=== PATIENT | male | born 1970 | race Caucasian/White ===

== ENCOUNTER 2020-05-20 14:02 | Inpatient (IN) | payer MEDICAID, SELFPAY ==
--- NOTE | ~2020-05-20 | CT_ITS ---
EXAMINATION: CT ANGIOGRAM OF THE CHEST WITH AND WITHOUT CONTRAST (CT PULMONARY ANGIOGRAM FOR PE) CLINICAL INFORMATION: 50-year-old male patient with shortness of breath. Post Covid. COMPARISON: No recent chest x-ray available. TECHNIQUE: Prior to contrast administration, noncontrast localization images were obtained. Subsequently, multidetector volumetric imaging was performed from the thoracic inlet to below the diaphragms following the administration of 66 mL Omnipaque 350 intravenous contrast. No contrast reaction reported Sagittal, coronal, and MIP oblique sagittal reformatted images were obtained on the CT workstation, uploaded to PACS, and reviewed. This CT examination was performed using dose optimization techniques as appropriate, variously including the following: *Automated exposure control *Adjustment of mA and/or kV according to patient size (this includes techniques or standardized protocols for targeted exams where dose is matched to indication/reason for exam; i.e. extremities or head) *Use of iterative reconstruction technique Total exam dose-length product 316 mGy-cm FINDINGS: [employer]ISHING [employer]PER[employer]OR: Multilobar air space opacities in both lungs. QUALITY OF STUDY/CONTRAST BOLUS: Satisfactory. PULMONARY ARTERIES: No central or segmental pulmonary emboli. Minimal subsegmental emboli are present in both lower lobes, very low clot burden. THORACIC AORTA: No aneurysm or dissection. LUNG: Extensive and diffuse airspace opacifications in all lobes both lungs due to the evolution of Covid pneumonia. PLEURA: No pleural effusion or pneumothorax. MEDIASTINUM: Normal heart size. No pericardial effusion. Reactive mediastinal and bilateral hilar adenopathy. No evidence of septal bowing or right heart strain. CHEST WALL/AXILLA: No axillary or internal mammary lymphadenopathy. OSSEOUS STRUCTURES: No acute or suspicious osseous abnormality. UPPER ABDOMEN: Unremarkable. No reflux of contrast into the hepatic veins to suggest elevated right heart pressures. CT/CT angio chest PE protocol IMPRESSION: 1. Multilobar diffuse and extensive airspace disease in both lungs. 2. Subsegmental emboli in the lower lobes, very low clot burden. This critical result was discussed with Dr. Caputo at 6:50 PM on May 20 and it was ascertained that the content and urgency of the report was understood at the time of direct communication. VTE: Positive. Low clot burden.
[2020-05-20 14:07] VITALS: BP 136/61; PULSE 87; RESP 18; TEMP 37.4; O2SAT 88; BMI 25.1
--- NOTE | 2020-05-20 16:17 | ED.SOB ---
HPI - SOB/Dyspnea General Chief Complaint: Dyspnea Stated Complaint: SOB Time Seen by Provider: 05/20/20 16:17 Source: patient Mode of arrival: ambulatory Limitations: no limitations History of Present Illness HPI Narrative: Patient with COVID symptoms for last 12 days tested positive for COVID 10 days ago repeat test was done 3 days ago which was negative is complaining of increased shortness of breath for last 3-4 days with dry cough no fever no chest pain feels weak, has poor appetite no fever no chills no chest pain. Patient denies any prior lung issues on arrival patient was saturating 88% at room air improved to 91% on 4 L MD elicited complaint: shortness of breath Related Data Allergies Allergy/AdvReac Type Severity Reaction Status Date / Time ENVIRONMENTAL Allergy Unknown RASH, Uncoded 11/19/19 16:51 HIVES, ITCHY Review of Systems Review of Systems: Constitutional : N++Weight loss, No Fever, No Chills ENT/Mouth : No sore throat, No Rhinorrhea Eyes: No Eye Pain, No Swelling Cardiovascular : No Chest Pain, no palpitations Respiratory : ++Cough, No Sputum, ++ shortness of breath Gastrointestinal : no Nausea, No Vomiting, No Diarrhea, No abdominal Pain, no black stools Genitourinary : No Dysuria, No Urinary Frequency Musculoskeletal : No joint pain, No Myalgias, No Joint Swelling Skin : No Skin Lesions, No rash Neuro : ++Weakness, No Numbness, No Dizziness, No Headache Psych : No Anxiety/Panic, No Depression Heme/Lymph: No Bruising, No Lymphadenopathy Endocrine : No Polyuria, No Polydipsia All other systems reviewed and are negative [facility] Past Medical History Medical History (Updated 05/20/20 @ 19:31 by Jose Caputo MD) COVID-19 Social History Social History Household Members: Family Housing: House Do you presently have visiting nurse or other home services: No Alcohol intake: current Alcohol intake frequency: a few times a week Smoking Status: Never smoker Use of substances other than those prescribed or required for medical reasons: No Have you been hit, kicked, punched, or otherwise hurt by someone within the past year? If so, by whom?: No Do you feel safe in your current relationship?: Yes Is there a partner from a previous relationship who is making you feel unsafe now?: No Are you made to feel afraid or neglected: No Advance Directives: Yes Advance Directives Information Provided: No Advance Directives on File: No Advance Directives Date on File: 05/21/20 Do you have thoughts of harming others: None Do you have a plan to hurt others: No Plan Recently lost weight without trying: Yes Physical Exam Vital Signs: Vital Signs: Last Vital Signs Temp 98.4 F 05/21/20 00:36 Pulse 86 05/21/20 00:36 Resp 18 05/21/20 00:36 BP 121/60 05/21/20 00:36 Pulse Ox 99 05/21/20 00:00 Body Mass Index 25.1 Appearance: Alert. Oriented X3. Mild distress Eyes: Pupils equal, round and reactive to light. ENT: Pharynx normal. Neck: Normal inspection. Neck supple. CVS: Normal heart rate and rhythm. Pulses normal. Respiratory: mild respiratory distress. Prolonged expiration. No crackles no rhonchi no wheezing Abdomen: Soft and nontender. Bowel sounds are present, no mass palpable, no CVA tenderness Skin: Skin warm and dry. Normal skin color. Normal skin turgor. Extremities: No lower extremity edema. No calf tenderness Neuro: Oriented X 3. No motor deficit. No sensory deficit. MDM - SOB/Dyspnea MDM Narrative Medical decision making narrative: Patient's COVID-19 pneumonia for last 12 days getting worse in last 3 days testing was done which is still positive likely patient with inflammatory response CTA chest done which showed high burden of inflammation and few blood clots. Patient desaturated to 83% when he went to CT scan without oxygen which improved on 4 L of oxygen to 92%. Will start patient on steroids Decadron nebulizing treatment and started on prophylactic antibiotics Differential Diagnosis Differential diagnosis: Likely pneumonia Lab Data Attestation: I reviewed the patient's lab results. Result diagrams: 05/20/20 17:01 05/20/20 17:01 Labs: Lab Results 05/20/20 05/20/20 05/20/20 Range/Units 17:01 17: 17:01 WBC 5.8 (4.8-10.8) X10*3/uL RBC 4.80 (4.60-5.80) X10*6/uL Hgb 13.4 L (14.0-18.0) g/dl Hct 40.8 L (42-52) % MCV 85.0 (80-98) fL MCH 27.9 (27.0-33.0) pg MCHC 32.8 (31.0-36.0) g/dl RDW 12.2 (11.0-16.0) % Plt Count 306 (160-400) X10*3/uL MPV 8.7 L (9.4-12.4) fL Immature Gran % (Auto) 0.5 H (0.0-0.4) % Neut % (Auto) 72.8 (45-73) % Lymph % (Auto) 16.4 L (20-40) % [place] % (Auto) 9.8 (2-11) % Eos % (Auto) 0.3 (0-4) % Baso % (Auto) 0.2 (0-2) % Lymph # (Auto) 1.0 L (1.2-4.9) X10*3/uL [place] # (Auto) 0.6 (0.1-1.2) X10*3/uL Eos # (Auto) 0.0 (0.0-0.4) X10*3/uL Baso # (Auto) 0.0 (0.0-0.2) X10*3/uL Abs Immat Gran (auto) 0.03 (0.00-0.03) X10*3/uL Absolute Neuts (auto) 4.2 (2.0-8.3) X10*3/uL Absolute Nucleated RBC 0.000 (0.0-0.012) X10*3/uL Nucleated RBC % (auto) 0.0 (0.0-0.2) /100WBC PT (10.8-13.0) SEC INR (0.9-1.1) APTT (24.1-38.0) SEC D-Dimer NG/ML Sodium 137 (135-145) mmol/L Potassium 4.4 (3.3-5.1) mmol/L Chloride 102 (96-108) mmol/L Carbon Dioxide 23 (22-29) mmol/L Anion Gap 16 (12-20) BUN 11 (9-16) mg/dL Creatinine 0.84 (0.5-1.4) mg/dL Estim Creat Clear Calc 114.5 Estimated GFR > 60 Random Glucose 88 (60-115) mg/dL Lactic Acid (0.5-2.0) mmol/L Calcium 8.3 L (8.4-10.2) mg/dL Ferritin 739 H (20-250) ng/mL Total Bilirubin 0.7 (0.0-1.0) mg/dL Direct Bilirubin 0.3 (0.0-0.5) mg/dL AST 29 (5-37) U/L ALT 25 (0-40) U/L Alkaline Phosphatase 63 (39-117) U/L Lactate Dehydrogenase 352 H (118-273) U/L Troponin I High Sens 3.5 (<3.5-35.0) ng/L C-Reactive Protein 18.24 H (< or = 0.50) mg/dL Total Protein 6.9 (6.5-8.0) g/dL Albumin 4.0 (3.5-5.0) g/dL Coronavirus (PCR) (Negative) Influenza Type A (PCR) (Negative) Influenza Type B (PCR) (Negative) RSV RNA Qual (PCR) (Negative) 05/20/20 05/20/20 05/20/20 Range/Units 17:01 17:02 17:02 WBC (4.8-10.8) X10*3/uL RBC (4.60-5.80) X10*6/uL Hgb (14.0-18.0) g/dl Hct (42-52) % MCV (80-98) fL MCH (27.0-33.0) pg MCHC (31.0-36.0) g/dl RDW (11.0-16.0) % Plt Count (160-400) X10*3/uL MPV (9.4-12.4) fL Immature Gran % (Auto) (0.0-0.4) % Neut % (Auto) (45-73) % Lymph % (Auto) (20-40) % [place] % (Auto) (2-11) % Eos % (Auto) (0-4) % Baso % (Auto) (0-2) % Lymph # (Auto) (1.2-4.9) X10*3/uL [place] # (Auto) (0.1-1.2) X10*3/uL Eos # (Auto) (0.0-0.4) X10*3/uL Baso # (Auto) (0.0-0.2) X10*3/uL Abs Immat Gran (auto) (0.00-0.03) X10*3/uL Absolute Neuts (auto) (2.0-8.3) X10*3/uL Absolute Nucleated RBC (0.0-0.012) X10*3/uL Nucleated RBC % (auto) (0.0-0.2) /100WBC PT 15.0 H (10.8-13.0) SEC INR 1.3 H (0.9-1.1) APTT 35.0 (24.1-38.0) SEC D-Dimer 406 NG/ML Sodium (135-145) mmol/L Potassium (3.3-5.1) mmol/L Chloride (96-108) mmol/L Carbon Dioxide (22-29) mmol/L Anion Gap (12-20) BUN (9-16) mg/dL Creatinine (0.5-1.4) mg/dL Estim Creat Clear Calc Estimated GFR Random Glucose (60-115) mg/dL Lactic Acid 1.7 (0.5-2.0) mmol/L Calcium (8.4-10.2) mg/dL Ferritin (20-250) ng/mL Total Bilirubin (0.0-1.0) mg/dL Direct Bilirubin (0.0-0.5) mg/dL AST (5-37) U/L ALT (0-40) U/L Alkaline Phosphatase (39-117) U/L Lactate Dehydrogenase (118-273) U/L Troponin I High Sens (<3.5-35.0) ng/L C-Reactive Protein (< or = 0.50) mg/dL Total Protein (6.5-8.0) g/dL Albumin (3.5-5.0) g/dL Coronavirus (PCR) POSITIVE A (Negative) Influenza Type A (PCR) NEGATIVE (Negative) Influenza Type B (PCR) NEGATIVE (Negative) RSV RNA Qual (PCR) NEGATIVE (Negative) ECG Data Attestation: I personally reviewed and interpreted this ECG as follows: Interpretation: Normal sinus rhythm heart rate 75 beats per minute normal axis normal intervals no acute ST T wave changes impression normal EKG Critical Care Time Critical Care Time Critical Care Time: Yes Total Critical Care Time: 40 Attestation: I spent 40 minutes of critical care, with interventions, assessments, speaking to patient. Discharge Plan Discharge Clinical Impression: Pneumonia due to 2019 novel coronavirus, Hypoxia Pulmonary embolism Qualifiers: Pulmonary embolism type: multiple subsegmental (without acute cor pulmonale) Qualified Code(s): I26.94 - Multiple subsegmental pulmonary emboli without acute cor pulmonale Patient Disposition: Admitted As Inpatient Interventions: Admission Worksheet (ED) Last Done: 05/21/20 00:37 Discharge Date/Time: 05/21/20 00:37
--- NOTE | 2020-05-20 16:18 | ECG_ITS ---
Test Reason : DYSPNEA Blood Pressure : / mmHG Vent. Rate : 075 BPM Atrial Rate : 075 BPM P-R Int : 128 ms QRS Dur : 090 ms QT Int : 374 ms P-R-T Axes : 034 014 002 degrees QTc Int : 417 ms Normal sinus rhythm Normal ECG When compared with ECG of 13-APR-2018 23:37, No significant change was found Referred By: Jose Caputo Electronically Signed By:CARY MOORE MD
[2020-05-20 16:39] VITALS: BP 119/67; PULSE 79; RESP 18; TEMP 37.1; O2SAT 96
[2020-05-20 17:06] LABS: MANUAL DIFF FLAG NO
[2020-05-20 17:15] LABS: INTERNATIONAL NORM RATIO 1.3 (0.9-1.1)
[2020-05-20 17:17] LABS: Basophils Percent Auto 0.2 % (0-2); Eosinophils Percent Auto 0.3 % (0-4); Hematocrit 40.8 % (42-52); Hemoglobin 13.4 g/dl (14.0-18.0); Imm Gran Abs Auto 0.03 X10*3/uL (0.00-0.03); Imm Gran Pct Auto 0.5 % (0.0-0.4); Lymphocytes Percent Auto 16.4 % (20-40); Mean Corpuscular HGB Conc 32.8 g/dl (31.0-36.0); Mean Corpuscular Hemoglobin 27.9 pg (27.0-33.0); Mean Platelet Volume 8.7 fL (9.4-12.4); Monocytes Absolute Auto 0.6 X10*3/uL (0.1-1.2); Monocytes Percent Auto 9.8 % (2-11); Neutrophils Absolute Auto 4.2 X10*3/uL (2.0-8.3); Neutrophils Percent Auto 72.8 % (45-73); Platelet Count 306 X10*3/uL (160-400); Red Cell Distribution Width 12.2 % (11.0-16.0); White Blood Count 5.8 X10*3/uL (4.8-10.8)
[2020-05-20 17:18] LABS: D Dimer 406 NG/ML
[2020-05-20 17:28] LABS: Lactic Acid 1.7 mmol/L (0.5-2.0)
[2020-05-20 17:32] LABS: Alanine Aminotransferase 25 U/L (0-40); Alkaline Phosphatase 63 U/L (39-117); Anion Gap 16 (12-20); Aspartate Amino Transferase 29 U/L (5-37); Bilirubin Direct 0.3 mg/dL (0.0-0.5); Bilirubin Total 0.7 mg/dL (0.0-1.0); Blood Urea Nitrogen 11 mg/dL (9-16); C Reactive Protein 18.24 mg/dL (< or = 0.50); Calcium 8.3 mg/dL (8.4-10.2); Carbon Dioxide 23 mmol/L (22-29); Chloride 102 mmol/L (96-108); Creatinine Clr Calc Pharmacy 114.5; Estimated Glomerular Filt Rate > 60; Glucose Random 88 mg/dL (60-115); Lactate Dehydrogenase 352 U/L (118-273); Potassium 4.4 mmol/L (3.3-5.1); Sodium 137 mmol/L (135-145); Total Protein 6.9 g/dL (6.5-8.0)
[2020-05-20 17:38] LABS: Troponin-I High Sensitivity 3.5 ng/L (<3.5-35.0)
--- NOTE | 2020-05-20 17:47 | PC.NURSE ---
Pt's sats mid 90s on 2liters NC. He does not appear to be in any distress. Awaiting CT scan at this time.
[2020-05-20 17:52] LABS: Ferritin 739 ng/mL (20-250)
[2020-05-20] MEDS: ondansetron HCL 4 MG/2 ML VIAL IVPUSH (18:14)
--- NOTE | 2020-05-20 18:16 | PC.NURSE ---
Pt vomited after CT scan injection. MD owusu VSS.
[2020-05-20 18:18] VITALS: BP 121/68; PULSE 89; RESP 30; O2SAT 82; O2SAT 90
[2020-05-20] MEDS: 0.9 % Sodium Chloride 1,000 ML 999 ML IVCONT (18:22)
[2020-05-20 18:26] LABS: Influenza A PCR NEGATIVE (Negative); Influenza B PCR NEGATIVE (Negative); Resp Syncy Virus RNA Qual PCR NEGATIVE (Negative); SARS COV2 PCR INHOUSE POSITIVE (Negative)
[2020-05-20 18:34] VITALS: PULSE 83; O2SAT 91
[2020-05-20] MEDS: Albuterol/Iprat 2.5/0.5MG 3 ML AMPUL.NEB INHALE (18:34)
[2020-05-20] MEDS: Apixaban 5 MG TABLET PO (18:47)
--- NOTE | 2020-05-20 19:33 | P.HPHOSP_ITS ---
History of Present Illness Date of Service: 05/20/20 Chief Complaint: SOB 50-year-old male with no past medical history presented to the hospital with a chief complaint of shortness of breath. Patient reported that he has been to [place] about 2 weeks ago and was tested COVID positive about 10 days ago. But lately over the past 3 4 days he has been having increased shortness of breath/dyspnea on exertion. As the symptoms were worsening decided to come to the ER for further help. Complains of cough. Denies any sputum. Denies any numbness tingling. Denies any headaches. Denies any blurry vision. Denies any loss of taste or smell. Denies any GI or symptoms. Review of all other systems is negative except mentioned above ER course: Per ER team patient was noted to be visually short of breath, was saturating 88% on room air on presentation. Subsequently placed on supplemental oxygen with increase in oxygenation to 92%. CT scan showed bilateral infiltrates as well as small PE. Patient was started on anticoagulation, antibiotics, dexamethasone. Admitted to the hospital for further management. ER team also mentioned that been patient went for the CAT scan his oxygenation significantly dropped to 83%, patient was not wearing oxygen at the time. Improved with oxygen placement. [facility] Medical History (Updated 05/20/20 @ 19:31 by Jose Caputo MD) COVID-19 Social History Household Members: Family Housing: House Do you presently have visiting nurse or other home services: No Alcohol intake: current Alcohol intake frequency: a few times a week Smoking Status: Never smoker Use of substances other than those prescribed or required for medical reasons: No Currently Displaying Signs/Symptoms of Drug Intoxication Withdrawal: No Have you been hit, kicked, punched, or otherwise hurt by someone within the past year? If so, by whom?: No Do you feel safe in your current relationship?: Yes Is there a partner from a previous relationship who is making you feel unsafe now?: No Are you made to feel afraid or neglected: No Advance Directives: Yes Advance Directives Information Provided: No Advance Directives on File: No Advance Directives Date on File: 05/21/20 Do you have thoughts of harming others: None Do you have a plan to hurt others: No Plan Recently lost weight without trying: Yes service: No Current occupational status: employed Meds Allergies Allergy/AdvReac Type Severity Reaction Status Date / Time ENVIRONMENTAL Allergy Unknown RASH, Uncoded 05/21/20 18:45 HIVES, ITCHY Active Medications: Current Medications Generic Name Dose Route Start Last Admin Trade Name Yun PRN Reason Stop Dose Admin Acetaminophen 650 mg 05/20/20 19:24 Acetaminophen 325 Mg Tablet PO Q6H PRN Pain, Mild (Pain Scale 1-3) Dexamethasone 6 mg 05/21/20 09:00 Dexamethasone 6 Mg Tablet PO DAILY [place] Enoxaparin Sodium 80 mg 05/20/20 19:30 Enoxaparin Sodium 120 Mg/0.8 Ml Syringe 1 mg/kg (80 mg) SUBCUT Q12H [place] Doxycycline Hyclate 100 mg/ 250 mls @ 166.67 mls/hr 05/20/20 18:42 Sodium Chloride IV 05/20/20 20:11 ONCE ONE Ceftriaxone Sodium 1 gm/ 50 mls @ 100 mls/hr 05/20/20 19:30 Sodium Chloride IV Q24H [place] Azithromycin 500 mg/ Sodium 250 mls @ 125 mls/hr 05/20/20 19:30 Chloride IV Q24H [place] Pantoprazole Sodium 40 mg 05/21/20 06:30 Pantoprazole Sodium 40 Mg/10 Ml Vial IVPUSH DAILY@0630 [facility] Sodium Chloride 3 ml 05/21/20 00:00 0.9 % Sodium Chloride Flush 3 Ml Syringe IVFLUSH QSHIFT [facility] Physical Exam Vital Signs and Narrative: Vital Signs: Last Vital Signs Temp 98.7 F 05/20/20 16:39 Pulse 83 05/20/20 18:34 Resp 30 H 05/20/20 18:18 BP 121/68 05/20/20 18:18 Pulse Ox 90 L 05/20/20 18:18 Body Mass Index 25.1 Gen: Appears be in no acute distress. Speaks in full sentences. On supplemental oxygen HEENT: NCAT, Moist mucosa. Pulmonary: Course breath sounds, fair air entry CVS: Normal S1-S2 Abdomen: BS+, Soft, Nontender Extremities: Warm well perfused Neuro: Alert and awake. Grossly nonfocal Results Labs CBC and Chem 7: 05/22/20 05:56 05/22/20 05:56 Labs: Laboratory Results - last 24 hr 05/20/20 05/20/20 05/20/20 17:01 17:01 17:01 MCV 85.0 MCH 27.9 MCHC 32.8 RDW 12.2 Plt Count 306 MPV 8.7 L Immature Gran % (Auto) 0.5 H Neut % (Auto) 72.8 Lymph % (Auto) 16.4 L [place] % (Auto) 9.8 Eos % (Auto) 0.3 Baso % (Auto) 0.2 Lymph # (Auto) 1.0 L [place] # (Auto) 0.6 Eos # (Auto) 0.0 Baso # (Auto) 0.0 Abs Immat Gran (auto) 0.03 Absolute Neuts (auto) 4.2 Absolute Nucleated RBC 0.000 Nucleated RBC % (auto) 0.0 PT INR APTT D-Dimer Anion Gap 16 Estim Creat Clear Calc 114.5 Estimated GFR > 60 Random Glucose 88 Lactic Acid Calcium 8.3 L Ferritin 739 H Total Bilirubin 0.7 Direct Bilirubin 0.3 AST 29 ALT 25 Alkaline Phosphatase 63 Lactate Dehydrogenase 352 H Troponin I High Sens 3.5 C-Reactive Protein 18.24 H Total Protein 6.9 Albumin 4.0 Coronavirus (PCR) Influenza Type A (PCR) Influenza Type B (PCR) RSV RNA Qual (PCR) 05/20/20 05/20/20 05/20/20 17:01 17:02 17:02 MCV MCH MCHC RDW Plt Count MPV Immature Gran % (Auto) Neut % (Auto) Lymph % (Auto) [place] % (Auto) Eos % (Auto) Baso % (Auto) Lymph # (Auto) [place] # (Auto) Eos # (Auto) Baso # (Auto) Abs Immat Gran (auto) Absolute Neuts (auto) Absolute Nucleated RBC Nucleated RBC % (auto) PT 15.0 H INR 1.3 H APTT 35.0 D-Dimer 406 Anion Gap Estim Creat Clear Calc Estimated GFR Random Glucose Lactic Acid 1.7 Calcium Ferritin Total Bilirubin Direct Bilirubin AST ALT Alkaline Phosphatase Lactate Dehydrogenase Troponin I High Sens C-Reactive Protein Total Protein Albumin Coronavirus (PCR) POSITIVE A Influenza Type A (PCR) NEGATIVE Influenza Type B (PCR) NEGATIVE RSV RNA Qual (PCR) NEGATIVE Imaging Radiologist's Impressions: Impressions Chest CTA 05/20/20 16:18 IMPRESSION: 1. Multilobar diffuse and extensive airspace disease in both lungs. 2. Subsegmental emboli in the lower lobes, very low clot burden. This critical result was discussed with Dr. Caputo at 6:50 PM on May 20 and it was ascertained that the content and urgency of the report was understood at the time of direct communication. VTE: Positive. Low clot burden. Assessment and Plan (1) Pneumonia due to 2019 novel coronavirus: Status: Acute 50-year-old male with no significant past medical history presented to the hospital with a chief complaint of shortness of breath. Noted to have COVID-19 pneumonia/PE. Acute hypoxic respiratory failure: In the setting of COVID-19 pneumonia/PE. Patient on supplemental oxygen. Albuterol inhaler p.r.n.. Encouraged prone position whenever possible. COVID-19 pneumonia: CT scan showed multilobar diffuse and extensive airspace disease in both the lungs. Patient has elevated ESR, CRP, LDH, ferritin levels. Patient continued on dexamethasone 6 mg daily. Continued on empiric antibiotics ceftriaxone and azithromycin. Discussed with ID Dr. Jesus-recommended NO Remdisivir. Procalcitonin pending Will also consult pulmonology. Pulmonary embolism: CT scan showed subsegmental emboli in the lower lobes. Will start the patient on Lovenox 1 mg/kg twice daily. Will obtain an echocardiogram. Monitor on telemetry. GI prophylaxis: Pantoprazole DVT prophylaxis: Patient on Lovenox Code status: Full code
[2020-05-20 19:35] VITALS: BP 134/59; PULSE 94; RESP 22; TEMP 36.7; O2SAT 95
[2020-05-20] MEDS: Apixaban 5 MG TABLET 10 MG PO (20:00)
[2020-05-20] MEDS: cefTRIAXone sodium 1 GM in 0.9 % Sodium Chloride 50 ML IV (20:00)
--- NOTE | 2020-05-20 20:02 | PC.NURSE ---
REPORT TAKEN FROM DARI Sue RN FIRST CONTACT WITH PT. SITTING UP IN BED A&Ox4, SKIN PWD, RESPIRATIONS EVEN UNLABORED. SPO2 94% ON 3L VIA NC. DENIES DIFFICULTY BREATHING, DENIES PAIN. MEDICATED PER MAR. TO BE ADMITTED, PENDING BED ASSIGNMENT, AWARE OF PLAN OF CARE.
--- NOTE | 2020-05-20 21:28 | PC.NURSE ---
ATTEMPTED TO GIVE REPORT- AWAITING CALLBACK.
[2020-05-20] MEDS: Doxycycline Hyclate 100 MG in 0.9 % Sodium Chloride 250 ML 166.67 MG IV (21:36)
[2020-05-20 22:00] VITALS: BP 116/67; PULSE 78; RESP 20; TEMP 37; O2SAT 96
[2020-05-21] VITALS (8 sets, daily range): BP systolic 116–131; BP diastolic 59–75; PULSE 62–86; RESP 16–20; TEMP 35.9–36.9; O2SAT 92–99
[2020-05-21 00:15] LABS: Troponin-I High Sensitivity < 3.5 ng/L (<3.5-35.0)
[2020-05-21] MEDS: 0.9 % Sodium Chloride Flush 3 ML SYRINGE IVFLUSH ×3 (02:12→16:55)
[2020-05-21] MEDS: Azithromycin 500 MG in 0.9 % Sodium Chloride 250 ML 125 MG IV ×2 (02:12→20:25)
[2020-05-21] MEDS: Pantoprazole Sodium 40 MG/10 ML VIAL IVPUSH (06:00)
[2020-05-21 06:57] LABS: Basophils Percent Auto 0.3 % (0-2); Hematocrit 38.5 % (42-52); Imm Gran Abs Auto 0.03 X10*3/uL (0.00-0.03); Imm Gran Pct Auto 0.8 % (0.0-0.4); Lymphocytes Absolute Auto 0.6 X10*3/uL (1.2-4.9); Lymphocytes Percent Auto 14.4 % (20-40); MANUAL DIFF FLAG SCAN; Mean Corpuscular HGB Conc 33.8 g/dl (31.0-36.0); Mean Corpuscular Hemoglobin 28.4 pg (27.0-33.0); Mean Corpuscular Volume 84.2 fL (80-98); Mean Platelet Volume 9.4 fL (9.4-12.4); Monocytes Absolute Auto 0.2 X10*3/uL (0.1-1.2); Monocytes Percent Auto 5.2 % (2-11); Neutrophils Percent Auto 79.3 % (45-73); Platelet Count 312 X10*3/uL (160-400); Red Blood Count 4.57 X10*6/uL (4.60-5.80); Red Cell Distribution Width 12.3 % (11.0-16.0); SCAN SMEAR FLAG 1; White Blood Count 3.8 X10*3/uL (4.8-10.8)
[2020-05-21 07:31] LABS: Anion Gap 17 (12-20); Blood Urea Nitrogen 13 mg/dL (9-16); Calcium 8.4 mg/dL (8.4-10.2); Carbon Dioxide 20 mmol/L (22-29); Chloride 108 mmol/L (96-108); Creatinine Clr Calc Pharmacy 121.7; Estimated Glomerular Filt Rate > 60; Glucose Random 142 mg/dL (60-115); Potassium 4.8 mmol/L (3.3-5.1); Sodium 140 mmol/L (135-145)
[2020-05-21 07:53] LABS: SLIDE REVIEW VERIFIED
[2020-05-21] MEDS: dexAMETHasone 6 MG TABLET PO (09:20)
[2020-05-21] MEDS: Enoxaparin Sodium 80 MG/0.8 ML SYRINGE SUBCUT ×2 (09:21→19:42)
--- NOTE | 2020-05-21 10:22 | P.EN_ITS ---
Event Note Date of Service: 05/21/20 Event Note: I have seen this patient and reviewed his case for pulmonary consu ltation. Complete note is dictated. A: Acute COVID-19 infection Acute Bilateral pneumonitis/ARDS Acute subsegmental pulmonary embolus P: I agree with the current treatment. Patient would be need to be watch closely for worsening of ARDS.
[2020-05-21 10:32] LABS: Procalcitonin 0.03 ng/mL
--- NOTE | 2020-05-21 14:28 | HO.PM.IMPN ---
Subjective Subjective Date of Service: 05/21/20 Interval History: feels better; less short of breath no fever Physical Exam Vital Signs: Vital Signs: Last Vital Signs Temp 98.1 F 05/21/20 11:22 Pulse 78 05/21/20 11:22 Resp 18 05/21/20 11:22 BP 126/75 05/21/20 11:22 Pulse Ox 92 05/21/20 11:22 Body Mass Index 25.1 Gen: in no acute distress HEENT: sclera anicteric, moist mucus membranes Neck: supple Lungs: no respiratory distress, auscultation deferred due to COVID-19 Heart: normal peripheral pulses Abd: soft, non-tender, non-distended Ext: no cyanosis, clubbing, or edema Skin: warm/well-perfused Neuro: alert and oriented x3, no focal findings Psych: appropriate affect Objective Data Current Medications Generic Name Dose Route Start Last Admin Trade Name Freq PRN Reason Stop Dose Admin Acetaminophen 650 mg 05/20/20 19:24 Acetaminophen 325 Mg Tablet PO Q6H PRN Pain, Mild (Pain Scale 1-3) Albuterol Sulfate 4 puff 05/20/20 19:33 Albuterol Sulfate 90 Mcg 8 Gm Inhaler INHALE Q2H PRN Shortness of Breath/Wheezing Dexamethasone 6 mg 05/21/20 09:00 05/21/20 09:20 Dexamethasone 6 Mg Tablet PO 6 mg DAILY [place] Administration Enoxaparin Sodium 80 mg 05/21/20 08:00 05/21/20 09:21 Enoxaparin Sodium 80 Mg/0.8 Ml Syringe SUBCUT 80 mg Q12H [place] Administration Ceftriaxone Sodium 1 gm/ 50 mls @ 100 mls/hr 05/20/20 19:30 05/20/20 22:57 Sodium Chloride IV Not Given Q24H [place] Azithromycin 500 mg/ Sodium 250 mls @ 125 mls/hr 05/20/20 19:30 05/21/20 04:23 Chloride IV Infused Q24H [place] Infusion Pantoprazole Sodium 40 mg 05/21/20 06:30 05/21/20 06:00 Pantoprazole Sodium 40 Mg/10 Ml Vial IVPUSH 40 mg DAILY@0630 [place] Administration Sodium Chloride 3 ml 05/21/20 00:00 05/21/20 09:21 0.9 % Sodium Chloride Flush 3 Ml Syringe IVFLUSH 3 ml QSHIFT [facility] Administration Labs CBC & Chem 7: 05/21/20 06:04 05/21/20 06:05 Assessment and Plan (1) Pneumonia due to 2019 novel coronavirus: Status: Acute (2) Pulmonary embolism: Status: Acute (3) Hypoxia: Status: Acute Assessment and Plan: hospital d#2 50yo M with no chronic medical conditions diagnosed with COVID-19 10 days ago admitted for hypoxia, found to have subsegmental PE # COVID-19 pneumonia - dexamethasone d#04/13, out of window for remdesivir, trend inflammatory markers # acute hypoxic respiratory failure - suppl O2, wean as tolerated, encourage awake proning # PE - therapeutic LMWH, switch to apixaban at some point
--- NOTE | 2020-05-21 14:32 | MHC.CM.PN ---
EMR REVIEWED PT ADMITTED W/ COVID PNA, CM MET W/PT VIA [employer] [employer] DRUM CONTINUOUS PROCESS AND PT IS ALERT AND ORIENTED, PT REPORTS HE LIVES WITH HIS SISTER, IS INDEPENDENT WITH ALL CARE, NO DME OR HOME HEALTH SERVICES, PT DENIES HAVING A PCP AT THIS TIME, PT DOES NOT RECALL THE NAME OF HIS OLD DOCTOR AND REPORTS IT HAS BEEN OVER A YEAR SINCE HE HAS SEEN ONE. PT ALSO DENIES HAVING A HCP, PT MAY WANT TO COMPLETE PRIOR TO D/C AND CM CAN ASSIST. DISCHARGE PLAN: HOME W/NO SERVICES, DAUGHTER TO TRANSPORT
[2020-05-21] MEDS: cefTRIAXone sodium 1 GM in 0.9 % Sodium Chloride 50 ML IV (19:42)
[2020-05-22] VITALS (7 sets, daily range): BP systolic 118–125; BP diastolic 65–80; PULSE 50–73; RESP 16–20; TEMP 36.1–36.7; O2SAT 92–96
[2020-05-22] MEDS: 0.9 % Sodium Chloride Flush 3 ML SYRINGE IVFLUSH ×3 (00:25→16:27)
[2020-05-22] MEDS: Pantoprazole Sodium 40 MG/10 ML VIAL IVPUSH (06:15)
[2020-05-22 07:02] LABS: MANUAL DIFF FLAG NO
[2020-05-22 07:10] LABS: Basophils Percent Auto 0.1 % (0-2); Hematocrit 38.9 % (42-52); Hemoglobin 12.9 g/dl (14.0-18.0); Imm Gran Abs Auto 0.05 X10*3/uL (0.00-0.03); Imm Gran Pct Auto 0.5 % (0.0-0.4); Lymphocytes Absolute Auto 1.3 X10*3/uL (1.2-4.9); Lymphocytes Percent Auto 12.3 % (20-40); Mean Corpuscular HGB Conc 33.2 g/dl (31.0-36.0); Mean Corpuscular Hemoglobin 28.1 pg (27.0-33.0); Mean Corpuscular Volume 84.7 fL (80-98); Mean Platelet Volume 9.3 fL (9.4-12.4); Monocytes Absolute Auto 0.7 X10*3/uL (0.1-1.2); Monocytes Percent Auto 6.8 % (2-11); Neutrophils Absolute Auto 8.2 X10*3/uL (2.0-8.3); Neutrophils Percent Auto 80.3 % (45-73); Platelet Count 399 X10*3/uL (160-400); Red Blood Count 4.59 X10*6/uL (4.60-5.80); Red Cell Distribution Width 12.4 % (11.0-16.0); White Blood Count 10.2 X10*3/uL (4.8-10.8)
[2020-05-22 07:19] LABS: D Dimer 299 NG/ML
[2020-05-22 07:38] LABS: Alanine Aminotransferase 28 U/L (0-40); Albumin Level 3.6 g/dL (3.5-5.0); Alkaline Phosphatase 55 U/L (39-117); Anion Gap 15 (12-20); Aspartate Amino Transferase 22 U/L (5-37); Bilirubin Total 0.4 mg/dL (0.0-1.0); Blood Urea Nitrogen 21 mg/dL (9-16); C Reactive Protein 6.17 mg/dL (< or = 0.50); Calcium 8.8 mg/dL (8.4-10.2); Carbon Dioxide 26 mmol/L (22-29); Chloride 106 mmol/L (96-108); Creatinine Clr Calc Pharmacy 106.9; Estimated Glomerular Filt Rate > 60; Glucose Random 118 mg/dL (60-115); Lactate Dehydrogenase 272 U/L (118-273); Potassium 4.9 mmol/L (3.3-5.1); Sodium 142 mmol/L (135-145); Total Protein 6.3 g/dL (6.5-8.0)
[2020-05-22 07:48] LABS: Procalcitonin 0.02 ng/mL
[2020-05-22 08:03] LABS: Ferritin 745 ng/mL (20-250)
[2020-05-22] MEDS: Apixaban 5 MG TABLET PO ×2 (09:30→19:46)
[2020-05-22] MEDS: dexAMETHasone 6 MG TABLET PO (09:30)
[2020-05-22 10:42] LABS: Prolactin 3.8 ng/mL (2.0-18.0)
--- NOTE | 2020-05-22 12:09 | P.PNIM_ITS ---
Subjective Subjective Date of Service: 05/22/20 Interval History: less dyspneic but still requires 4L via NC no fever no chest pain good appetite Physical Exam Vital Signs: Vital Signs: Last Vital Signs Temp 97.5 F 05/22/20 11:29 Pulse 65 05/22/20 11:29 Resp 20 05/22/20 11:29 BP 118/70 05/22/20 11:29 Pulse Ox 93 05/22/20 11:29 Body Mass Index 25.1 Gen: in no acute distress HEENT: sclera anicteric, moist mucus membranes Neck: supple Lungs: no respiratory distress, auscultation deferred due to COVID-19 Heart: normal peripheral pulses Abd: soft, non-tender, non-distended Ext: no cyanosis, clubbing, or edema Skin: warm/well-perfused Neuro: alert and oriented x3, no focal findings Psych: appropriate affect Objective Data Current Medications Generic Name Dose Route Start Last Admin Trade Name Freq PRN Reason Stop Dose Admin Acetaminophen 650 mg 05/20/20 19:24 Acetaminophen 325 Mg Tablet PO Q6H PRN Pain, Mild (Pain Scale 1-3) Albuterol Sulfate 4 puff 05/20/20 19:33 Albuterol Sulfate 90 Mcg 8 Gm Inhaler INHALE Q2H PRN Shortness of Breath/Wheezing Apixaban 5 mg 05/22/20 09:00 05/22/20 09:30 Apixaban 5 Mg Tablet PO 5 mg BID GER[place] Administration Dexamethasone 6 mg 05/21/20 09:00 05/22/20 09:30 Dexamethasone 6 Mg Tablet PO 6 mg DAILY GER[place] Administration Pantoprazole Sodium 40 mg 05/21/20 06:30 05/22/20 06:15 Pantoprazole Sodium 40 Mg/10 Ml Vial IVPUSH 40 mg DAILY@0630 GER[place] Administration Sodium Chloride 3 ml 05/21/20 00:00 05/22/20 09:30 0.9 % Sodium Chloride Flush 3 Ml Syringe IVFLUSH 3 ml QSHIFT [place] Administration Labs CBC & Chem 7: 05/22/20 05:56 05/22/20 05:56 Labs: Laboratory Results - last 24 hr 05/20/20 05/22/20 05/22/20 19:45 05:56 05:56 WBC 10.2 RBC 4.59 L Hgb 12.9 L Hct 38.9 L MCV 84.7 MCH 28.1 MCHC 33.2 RDW 12.4 Plt Count 399 D MPV 9.3 L Immature Gran % (Auto) 0.5 H Neut % (Auto) 80.3 H Lymph % (Auto) 12.3 L [place] % (Auto) 6.8 Eos % (Auto) 0.0 Baso % (Auto) 0.1 Lymph # (Auto) 1.3 [place] # (Auto) 0.7 Eos # (Auto) 0.0 Baso # (Auto) 0.0 Abs Immat Gran (auto) 0.05 H Absolute Neuts (auto) 8.2 Absolute Nucleated RBC 0.000 Nucleated RBC % (auto) 0.0 D-Dimer Sodium 142 Potassium 4.9 Chloride 106 Carbon Dioxide 26 Anion Gap 15 BUN 21 H D Creatinine 0.90 Estim Creat Clear Calc 106.9 Estimated GFR > 60 Random Glucose 118 H Calcium 8.8 Ferritin 745 H Total Bilirubin 0.4 AST 22 ALT 28 Alkaline Phosphatase 55 Lactate Dehydrogenase 272 C-Reactive Protein 6.17 H Total Protein 6.3 L Albumin 3.6 Procalcitonin Prolactin 3.8 05/22/20 05/22/20 05:56 05:56 WBC RBC Hgb Hct MCV MCH MCHC RDW Plt Count MPV Immature Gran % (Auto) Neut % (Auto) Lymph % (Auto) [place] % (Auto) Eos % (Auto) Baso % (Auto) Lymph # (Auto) [place] # (Auto) Eos # (Auto) Baso # (Auto) Abs Immat Gran (auto) Absolute Neuts (auto) Absolute Nucleated RBC Nucleated RBC % (auto) D-Dimer 299 Sodium Potassium Chloride Carbon Dioxide Anion Gap BUN Creatinine Estim Creat Clear Calc Estimated GFR Random Glucose Calcium Ferritin Total Bilirubin AST ALT Alkaline Phosphatase Lactate Dehydrogenase C-Reactive Protein Total Protein Albumin Procalcitonin 0.02 Prolactin Microbiology Microbiology Results: Microbiology 05/20/20 17:00 Blood - Venous Blood Culture - Preliminary No growth after 24 hours. 05/20/20 17:00 Blood - Venous Blood Culture - Preliminary No growth after 24 hours. Assessment and Plan (1) Pneumonia due to 2019 novel coronavirus: Status: Acute (2) Pulmonary embolism: Status: Acute (3) Hypoxia: Status: Acute Assessment and Plan: hospital d#3 50yo M with no chronic medical conditions diagnosed with COVID-19 over 10d prior to presentation admitted for hypoxia, found to have subsegmental PE # COVID-19 pneumonia - dexamethasone d#05/11, out of window for remdesivir, inflammatory markers reassuring - no evidence for bacterial pneumonia; will d/c ceftriaxone + azithromycin # acute hypoxic respiratory failure - suppl O2, wean as tolerated, encourage awake proning # PE - will switch LMWH to apixaban, need 3mo total
--- NOTE | 2020-05-22 17:32 | PC.NURSE ---
1250- Pt's HR stating between 46-48. Pt resting in bed. Dr. Lott made aware. No new orders.
[2020-05-23] MEDS: 0.9 % Sodium Chloride Flush 3 ML SYRINGE IVFLUSH ×4 (00:06→20:06)
[2020-05-23 03:58] VITALS: BP 131/68; PULSE 53; RESP 18; TEMP 37.1; O2SAT 94
[2020-05-23] MEDS: Pantoprazole Sodium 40 MG/10 ML VIAL IVPUSH (06:28)
[2020-05-23 08:00] VITALS: BP 137/70; PULSE 52; RESP 20; TEMP 36.4; O2SAT 96
[2020-05-23] MEDS: dexAMETHasone 6 MG TABLET PO (09:43)
[2020-05-23] MEDS: Apixaban 5 MG TABLET PO ×2 (09:43→20:05)
--- NOTE | 2020-05-23 10:59 | MHC.CM.PN ---
Patient is on 1.5 liters O2 via NC and day 05/11 PO Dexamethasone for COVID+ on 05/20. Completed IV Heparin gtt for PE, new on Eliquis which will be covered 100%. Discharge plan is home no services. Dtr will provide transport. CM will continue to follow patient for discharge needs.
[2020-05-23 12:00] VITALS: BP 123/66; PULSE 63; RESP 20; TEMP 36.4; O2SAT 94
--- NOTE | 2020-05-23 13:52 | CONS_ITS ---
DATE OF SERVICE: 05/21/2020 HISTORY OF PRESENT ILLNESS: This 50-year-old gentleman is admitted since last night with chief complaint of increased shortness of breath for the last 3 to 4 days along with mild dry cough. Recent past history is noted, and patient was in [place] 2 weeks ago where he had mild respiratory symptoms and was tested positive for COVID about 10 days ago. He came back to the local area here, and since about 3 to 4 days has started getting more short of breath as described above. He denies any chest pain. Denies chills or fever. In the emergency room, he was visibly short of breath, and a CTA of the chest shows: 1. Subsegmental pulmonary emboli in the lower lobes. 2. Extensive bilateral alveolar densities consistent with widespread pneumonitis. 3. The patient's O2 saturation on room air was in the mid 80s and improved after oxygen supplementation. REVIEW OF SYSTEMS: Negative except for the respiratory symptoms. He has had no previous significant medical illnesses. PHYSICAL EXAMINATION: GENERAL: This morning, this 50-year-old gentleman appears fairly comfortable. VITAL SIGNS: Stable at this time. Respiratory rate is noted to be 20, not labored. EAR, NOSE, THROAT: Examination was not performed. NECK: No obvious jugular venous distention. Trachea in midline. No lymphadenopathy. CHEST: Percussion note is resonant. Breath sounds are slightly diminished but equal on both sides and surprisingly no significant crepitations or wheezes are heard. CARDIAC: Sounds are normal. Rhythm regular. No murmurs or gallops. ABDOMEN: Flat. No palpable mass. No hepatosplenomegaly. EXTREMITIES: No edema or varicosities. Peripheral pulses normal. LABORATORY DATA: White cell count 3.8, hemoglobin 13, platelet count is 312, normal. COVID test positive. CTA of the chest shows evidence of subsegmental pulmonary emboli in the lower lobes. Multilobar diffuse and extensive airspace disease. IMPRESSION: 1. Acute COVID-19 infection. 2. Bilateral pneumonitis secondary to COVID-19. 3. Pulmonary embolism secondary to above. Clinically, the patient seems to be relatively stable at this time. RECOMMENDATION: 1. Continue oxygen supplementation to keep O2 saturation above 90%. 2. Course of dexamethasone 6 mg a day for 10 days. 3. Use of bronchodilators only p.r.n. 4. Patient should be encouraged to do deep breathing exercises. 5. As I have noted, the patient's case had been discussed with Infectious Disease Service, Dr. Jesus, and the patient is not a candidate for remdesivir at this time. The patient is also on therapeutic anticoagulation, which is fine. Thank you very much for asking me to see this patient. Sincerely, MD MAGALI Brooks/ALESSANDRA / [phone]
--- NOTE | 2020-05-23 14:49 | HO.PM.IMPN ---
Subjective Subjective Date of Service: 05/23/20 Interval History: the patient was seen and evaluated this morning Laying in bed, feels comfortable Denies any fever, chills or shortness of breath No reported other overnight events. Oxygen wean down to room air this morning, continue to monitor Systemic review: No fever, chills or weakness No chest pain, palpitation No shortness of breath or coughing No abdominal pain, nausea or vomiting No urinary symptoms No any rash or wounds Physical Exam Vital Signs: Vital Signs: Last Vital Signs Temp 97.5 F 05/23/20 12:00 Pulse 63 05/23/20 12:00 Resp 20 05/23/20 12:00 BP 123/66 05/23/20 12:00 Pulse Ox 94 05/23/20 12:00 Body Mass Index 25.1 Const: Other: Constitutional : Alert, oriented, not in distress Neck : Normal inspection, Supple Cardiovascular : RRR, S1 S2, no lower extremity edema Respiratory : Good bilateral air entry, no crackles, wheezes or rhonchi Gastrointestinal: soft, lax, Normal bowel sounds, Non tender Skin : Warm/Dry, No rash Neurological : Alert & oriented x3, No focal deficit Objective Data Current Medications Generic Name Dose Route Start Last Admin Trade Name Freq PRN Reason Stop Dose Admin Acetaminophen 650 mg 05/20/20 19:24 Acetaminophen 325 Mg Tablet PO Q6H PRN Pain, Mild (Pain Scale 1-3) Albuterol Sulfate 4 puff 05/20/20 19:33 Albuterol Sulfate 90 Mcg 8 Gm Inhaler INHALE Q2H PRN Shortness of Breath/Wheezing Apixaban 5 mg 05/22/20 09:00 05/23/20 09:43 Apixaban 5 Mg Tablet PO 5 mg BID [place] Administration Dexamethasone 6 mg 05/21/20 09:00 05/23/20 09:43 Dexamethasone 6 Mg Tablet PO 6 mg DAILY [place] Administration Pantoprazole Sodium 40 mg 05/21/20 06:30 05/23/20 06:28 Pantoprazole Sodium 40 Mg/10 Ml Vial IVPUSH 40 mg DAILY@0630 [place] Administration Sodium Chloride 3 ml 05/21/20 00:00 05/23/20 09:43 0.9 % Sodium Chloride Flush 3 Ml Syringe IVFLUSH 3 ml QSHIFT [place] Administration Labs CBC & Chem 7: 05/22/20 05:56 05/22/20 05:56 Microbiology Microbiology Results: Microbiology 05/20/20 17:00 Blood - Venous Blood Culture - Preliminary No growth after 48 hours. 05/20/20 17:00 Blood - Venous Blood Culture - Preliminary No growth after 48 hours. Assessment and Plan (1) Pneumonia due to 2019 novel coronavirus: Status: Acute (2) Pulmonary embolism: Status: Acute (3) Hypoxia: Status: Acute Assessment and Plan: hospital d#4 50yo M with no chronic medical conditions diagnosed with COVID-19 over 10d prior to presentation admitted for hypoxia, found to have subsegmental PE # COVID-19 pneumonia dexamethasone d#06/11, out of window for remdesivir, inflammatory markers reassuring no evidence for bacterial pneumonia; d/c ceftriaxone + azithromycin # acute hypoxic respiratory failure suppl O2, wean as tolerated, encourage awake proning # acute PE continue apixaban, need 3mo total
[2020-05-23 15:16] VITALS: BP 117/64; PULSE 62; RESP 17; TEMP 36.4; O2SAT 94
--- NOTE | 2020-05-23 15:28 | CONS_ITS ---
DATE OF SERVICE: 05/23/2020 INDICATIONS: Shortness of breath and chest pain. HISTORY OF PRESENT ILLNESS: Mr. Laughlin is a 50-year-old gentleman with a known history of developing COVID-19 infection a little bit more than a week prior, he was having symptoms of shortness of breath and addition to some pleuritic discomfort. He also recently returned back from [place] when he was vacationing. Due to his worsening respiratory symptoms, he was brought into the [facility] ER for further evaluation. Upon arrival, he was found to be hypoxic down to 88%. The patient was placed on oxygen. CT scan of the chest also demonstrated bilateral airspace disease, which is suggestive of the COVID pneumonitis and the patient also had small pulmonary emboli. He was started on anticoagulation, antibiotics, and also given dexamethasone. The patient has been feeling better. He has been on room air, walking around, feeling recovering from his underlying illness. No significant coughing, it has not been congested. Overall, the patient denies any new concerns. PAST MEDICAL HISTORY: Unremarkable except for the new conditions. ALLERGIES: ENVIRONMENTAL ALLERGIES ONLY. MEDICATIONS: Please refer to the [facility] for the full list, which includes acetaminophen, albuterol, Protonix, dexamethasone 6 mg p.o. daily, and Eliquis 5 mg p.o. b.i.d. SOCIAL HISTORY: The patient is recently traveling from [place]. Nonsmoker. FAMILY HISTORY: Denies any family history of blood clots. PHYSICAL EXAMINATION: VITAL SIGNS: Stable. Saturating 96% on 1.5 L. GENERAL: Pleasant gentleman, in no acute distress. HEENT: Pupils equal and reactive to light. Oropharynx clear. NECK: Supple. LUNGS: Diminished bilaterally. CARDIAC: Regular rhythm, regular rate. No extra heart sounds. ABDOMEN: Positive bowel sounds. Soft. EXTREMITIES: No clubbing or cyanosis. LABORATORY DATA: Again, his COVID-19 test was positive. White count 10.2, hemoglobin 10.9, platelet count is stable. His differential is okay. Chemistries significant for ferritin level pf 745 secondary to the acute phase reactant and C-reactive protein is 6.17. His D-dimer was 406. INR 1.3. IMAGING STUDIES: Perceived by me. CT scan of the chest demonstrating small subsegmental pulmonary emboli primarily in the lower lobes and also the multilobar airspace disease in both lungs. ASSESSMENT: Mr. Laughlin is a 50-year-old gentleman, previously healthy, developing COVID-19, presenting with acute respiratory failure secondary to airspace disease and also PE. 1. COVID-19 infection, complicated by pneumonitis. 2. Acute respiratory failure. 3. Pulmonary emboli worsening by the COVID-19 endothelialitis. RECOMMENDATIONS: 1. Continue Eliquis loading dose. This should be 10 mg twice a day for 1 week and then 5 mg twice a day for at least 3 to 6 months. He will follow up as an outpatient with Pulmonary and will decide when to start the therapy. 2. Continue with Decadron for the 10 days course. 3. nasal cannula O2 to maintain a pulse ox above 90%. We will continue monitoring the patient closely. Further recommendations based on forthcoming data. Jose Rose MD MR/MODL / [id number]
--- NOTE | 2020-05-23 18:45 | PC.NURSE ---
Patient OOB ab maryam. This AM, while sleeping, patient's pulse in the 40s. Bradycardic at baseline. Weaned to room air. Pulmonary consult complete, echo not yet performed.
[2020-05-23 19:16] VITALS: BP 121/60; PULSE 65; RESP 18; TEMP 36.4; O2SAT 93
[2020-05-23 23:44] VITALS: BP 136/62; PULSE 62; RESP 18; TEMP 36.5; O2SAT 95
[2020-05-24 03:55] VITALS: BP 129/77; PULSE 80; RESP 18; TEMP 36.2; O2SAT 95
[2020-05-24] MEDS: Pantoprazole Sodium 40 MG/10 ML VIAL IVPUSH (06:01)
[2020-05-24 07:33] VITALS: BP 106/63; PULSE 60; RESP 18; TEMP 36.6; O2SAT 96
[2020-05-24] MEDS: 0.9 % Sodium Chloride Flush 3 ML SYRINGE IVFLUSH (09:13)
[2020-05-24] MEDS: dexAMETHasone 6 MG TABLET PO (09:13)
[2020-05-24] MEDS: Apixaban 5 MG TABLET PO (09:13)
--- NOTE | 2020-05-24 11:24 | PM.DS ---
DS: Providers Provider Date of Service: 05/24/20 Date of admission: 05/20/20 19:24 Primary care physician: None Physician Consults: 05/20/20 19:40 Consult to Pulmonology Routine Consulting Provider: Kaveh Stauffer Reason for consultation: COVID PNA; extensive infiltrates. DS: Diagnosis Discharge Diagnosis (1) Pneumonia due to 2019 novel coronavirus: Status: Acute (2) Pulmonary embolism: Status: Acute (3) Hypoxia: Status: Acute DS: Medications Discharge Medications Home Medications: Previous Rx's Medication Instructions Recorded apixaban [Eliquis] 5 mg PO BID 87 Days #174 tab 05/24/20 apixaban [Eliquis] 10 mg PO BID #20 tab 05/24/20 dexamethasone 6 mg PO DAILY #6 tab 05/24/20 DS: Summary Hospital Course Hospital Course: Admission note HPI 50-year-old male with no past medical history presented to the hospital with a chief complaint of shortness of breath. Patient reported that he has been to [place] about 2 weeks ago and was tested COVID positive about 10 days ago. But lately over the past 3 4 days he has been having increased shortness of breath/dyspnea on exertion. As the symptoms were worsening decided to come to the ER for further help. Complains of cough. Denies any sputum. Denies any numbness tingling. Denies any headaches. Denies any blurry vision. Denies any loss of taste or smell. Denies any GI or symptoms. Review of all other systems is negative except mentioned above ER course: Per ER team patient was noted to be visually short of breath, was saturating 88% on room air on presentation. Subsequently placed on supplemental oxygen with increase in oxygenation to 92%. CT scan showed bilateral infiltrates as well as small PE. Patient was started on anticoagulation, antibiotics, dexamethasone. Admitted to the hospital for further management. ER team also mentioned that been patient went for the CAT scan his oxygenation significantly dropped to 83%, patient was not wearing oxygen at the time. Improved with oxygen placement. Hospital course The patient was admitted to the hospital for hypoxia as a result of COVID-19 infection and newly diagnosed pulmonary embolism showed on CT scan of the chest. Treated with steroids and Eliquis with good response as the patient was weaned off the oxygen during the hospital stay and was able to ambulate freely on room air without reported shortness of breath or dyspnea. Evaluated by pulmonology who recommended at least 3 months of anticoagulation and to follow-up as outpatient to determine the length of treatment. Patient will be discharged on 6 more days of dexamethasone and 3 month supply of Eliquis to follow-up with Dr. Rose as outpatient. Time Spent with Patient Time attestation: Total time spent providing and/or coordinating discharge services: Discharge coordination time: Greater than 30 minutes Physical Exam Vital Signs: Vital Signs: Last Vital Signs Temp 97.8 F 05/24/20 07:33 Pulse 60 05/24/20 07:33 Resp 18 05/24/20 07:33 BP 106/63 05/24/20 07:33 Pulse Ox 96 05/24/20 07:33 Body Mass Index 25.1 Const: Other: Constitutional : Alert, oriented, not in distress Neck : Normal inspection, Supple Cardiovascular : RRR, S1 S2, no lower extremity edema Respiratory : Good bilateral air entry, no crackles, wheezes or rhonchi Gastrointestinal: soft, lax, Normal bowel sounds, Non tender Skin : Warm/Dry, No rash Neurological : Alert & oriented x3, No focal deficit DS: Data Data Completed and Pending Labs on day of discharge: Preliminary micro results at discharge 05/20/20 17:00 Blood Culture - Preliminary Blood - Venous No growth after 48 hours. 05/20/20 17:00 Blood Culture - Preliminary Blood - Venous No growth after 48 hours. Discharge Plan Discharge Patient Disposition: Home, Self-Care Referrals: Physician,None [Primary Care Provider] - Discharge Medications: New dexamethasone 6 mg Tablet 6 mg PO DAILY Qty: 6 RF: 0 Eliquis 5 mg Tablet 5 mg PO BID 87 Days Qty: 174 RF: 0 Eliquis 5 mg tablet 10 mg PO BID Qty: 20 RF: 0 Discharge Orders: Discharge Order (Routine); Ordered 05/24/20 Ordered By: Kevin Rodriguez Diet: advance to usual diet Activity on Discharge: As tolerated Stand Alone Forms: Patient Portal Discharge page Care Plan Goals: Read below Health Concerns: Read below Plan of Treatment: You were admitted to the hospital for treatment of lung clot and COVID-19 infection. Treated with blood thinner of Eliquis twice daily with good response along with steroid therapy. Continue dexamethasone for 6 more days Continue Eliquis for total of 3 months at least to follow-up with Dr. Rose from pulmonology as outpatient to decide length of treatment
--- NOTE | 2020-05-24 11:28 | MHC.CM.PN ---
Patient will be discharged home today no services. Dtr will provide transport. Nurse, patient are aware.
[2020-05-24 11:31] VITALS: BP 130/76; PULSE 80; RESP 18; TEMP 36.8; O2SAT 96
== END 2020-05-24 14:30 | disposition home or self-care (01) | DRG 137 ==
LOC: HO.ED 19:31 → HO.IMC 19:42
PROVIDERS: Family Medicine; Admitting Provider Hospitalist; Emergency Provider Internal Medicine; Visit Provider Student in an Organized Health Care Education/Training Program
DX: U07.1 COVID-19 (principal); I26.94 Multiple subsegmental thrombotic pulmonary emboli without acute cor pulmonale; J12.82 Pneumonia due to coronavirus disease 2019; J96.01 Acute respiratory failure with hypoxia
CPT/HCPCS: 0241U; 36415; 71275; 80048; 80053; 80076; 82728; 83605; 83615; 84145; 84146; 84484; 85025; 85379; 85610; 85730; 86140; 87040; 93005; 94640; 96365; 96366; 96368; 96375; 99285; 99291; J0456; J0696; J1100; J1650; J2405; J8540; Q9967

== ENCOUNTER → 2020-06-30 11:14 | Outpatient (BNVA) | payer MEDICAID, SELFPAY | PROVIDERS: Visit Provider Internal Medicine Pulmonary Disease | DX: B94.8 Sequelae of other specified infectious and parasitic diseases (principal); I26.99 Other pulmonary embolism without acute cor pulmonale | CPT/HCPCS: 99212 ==

== ENCOUNTER → 2020-08-31 11:14 | Outpatient (BNVA) | payer MEDICAID, SELFPAY | PROVIDERS: Visit Provider Internal Medicine Pulmonary Disease | DX: I26.99 Other pulmonary embolism without acute cor pulmonale (principal); B94.8 Sequelae of other specified infectious and parasitic diseases | CPT/HCPCS: 99212 ==

== ENCOUNTER 2020-09-07 06:47 | Outpatient (REF) | payer MEDICAID, SELFPAY ==
[2020-09-07 08:30] LABS: D Dimer < 200 NG/ML
== END 2020-09-07 06:48 | disposition home or self-care (01) ==
LOC: HO.LAB 06:47
PROVIDERS: PCP Internal Medicine; Visit Provider Internal Medicine Pulmonary Disease
DX: I26.99 Other pulmonary embolism without acute cor pulmonale (principal)
CPT/HCPCS: 36415; 85379

== ENCOUNTER 2021-02-27 12:52 | Outpatient (REF) | payer MEDICAID, SELFPAY | END 2021-02-27 12:53 | disposition home or self-care (01) | LOC: HO.LAB 12:52 | PROVIDERS: Visit Provider Internal Medicine | DX: Z20.822 Contact with and (suspected) exposure to COVID-19 (principal) | CPT/HCPCS: C9803; U0003; U0005 ==

== ENCOUNTER 2021-08-30 16:35 | Inpatient (IN) | payer MEDICAID, SELFPAY ==
--- NOTE | ~2021-08-30 | CT_ITS ---
EXAMINATION: CT ABDOMEN AND PELVIS WITH CONTRAST CLINICAL INFORMATION: Right lower quadrant pain with question of appendicitis. COMPARISON: None TECHNIQUE: Multidetector volumetric images were obtained from the superior aspect of the liver through the pubic symphysis following administration 85 mL of Omnipaque 350 intravenous contrast. Sagittal and coronal reformatted images were obtained on the technologist's workstation. Oral contrast: No This CT examination was performed using dose optimization techniques as appropriate, variously including the following: *Automated exposure control *Adjustment of mA and/or kV according to patient size (this includes techniques or standardized protocols for targeted exams where dose is matched to indication/reason for exam; i.e. extremities or head) *Use of iterative reconstruction technique DLP: 593 mGy-cm FINDINGS: LUNG BASES: The visualized lung bases are unremarkable. LIVER, GALLBLADDER, AND BILIARY TREE: The liver is normal in size, shape, and attenuation. No focal hepatic lesion or biliary ductal dilatation is present. The gallbladder is unremarkable with no evidence of radiopaque gallstones, gallbladder wall thickening, or obvious pericholecystic inflammatory changes. PANCREAS: Unremarkable. SPLEEN: Unremarkable. A small splenule is seen. ADRENAL GLANDS: Unremarkable. KIDNEYS AND URETERS: The kidneys are normal in size, shape, and attenuation. No hydronephrosis, hydroureter, or calculi seen. No perinephric stranding. BLADDER: Unremarkable. GASTROINTESTINAL TRACT: The small and large bowel are unremarkable. Of note, an 8.4 mm appendicolith is present in the proximal appendix. The entire appendix is dilated at 1.5 cm and there are inflammatory changes seen in the retroperitoneal fat surrounding the appendix. No free air is seen. No periappendiceal fluid collections are present. These findings are consistent with acute uncomplicated appendicitis. ABDOMINAL WALL: No significant hernia is appreciated. LYMPH NODES: No retroperitoneal lymphadenopathy. VASCULAR: Unremarkable. PELVIC VISCERA: A penile prosthesis is seen. [place] is present in the space of [place] on the left. There is very mild BPH. Seminal vesicles appear normal. OSSEOUS STRUCTURES: Unremarkable. CT/CT abdomen pelvis w con IMPRESSION: 1. Acute uncomplicated appendicitis. 2. Other incidental findings as described above. Fleischner guidelines were followed.
[2021-08-30 17:22] VITALS: BP 114/62; PULSE 65; RESP 14; TEMP 37; O2SAT 99; BMI 26.7
[2021-08-30 17:33] LABS: MANUAL DIFF FLAG NO
[2021-08-30 17:45] LABS: Basophils Percent Auto 0.2 % (0-2); Eosinophils Percent Auto 0.2 % (0-4); Hematocrit 45.8 % (42.0-52.0); Hemoglobin 15.2 g/dl (14.0-18.0); Imm Gran Abs Auto 0.04 X10*3/uL (0.00-0.03); Imm Gran Pct Auto 0.3 % (0.0-0.4); Lymphocytes Percent Auto 8.3 % (20-40); Mean Corpuscular HGB Conc 33.2 g/dl (31.0-36.0); Mean Corpuscular Hemoglobin 28.6 pg (27.0-33.0); Mean Corpuscular Volume 86.1 fL (80.0-98.0); Mean Platelet Volume 9.5 fL (9.4-12.4); Monocytes Absolute Auto 0.6 X10*3/uL (0.1-1.2); Monocytes Percent Auto 4.6 % (2-11); Neutrophils Absolute Auto 10.3 x10*3/uL (2.0-8.3); Neutrophils Percent Auto 86.4 % (45-73); Platelet Count 206 X10*3/uL (160-400); Red Blood Count 5.32 X10*6/uL (4.60-5.80); Red Cell Distribution Width 12.8 % (11.0-16.0); White Blood Count 11.9 X10*3/uL (4.8-10.8)
[2021-08-30 17:59] LABS: Anion Gap 11 (12-20); Blood Urea Nitrogen 17 mg/dL (9-16); Calcium 9.6 mg/dL (8.4-10.2); Carbon Dioxide 28 mmol/L (22-29); Chloride 102 mmol/L (96-108); Creatinine Clr Calc Pharmacy 82.3; Estimated Glomerular Filt Rate > 60; Glucose Random 108 mg/dL (60-115); Potassium 4.7 mmol/L (3.3-5.1); Sodium 136 mmol/L (135-145)
[2021-08-30 18:13] LABS: Appearance Urine CLEAR; Color Urine YELLOW; Glucose Urine UA NEG (NEG); Leukocyte Esterase Urine NEG (NEG); Nitrite Urine NEG (NEG); Specific Gravity - Urine >= 1.030 (1.005-1.025); UACC Culture Trigger NO; Urine Blood TRACE (NEG); Urine Ketones NEG (NEG); Urine Protein NEG (NEG-TRACE)
[2021-08-30 18:21] LABS: WBC Urine 0 /HPF (0-4)
--- NOTE | 2021-08-30 22:57 | ED_ITS ---
HPI - Abdominal Pain General Chief Complaint: Abdominal Pain Stated Complaint: abd pain Time Seen by Provider: 08/30/21 22:35 Source: patient Mode of arrival: ambulatory Limitations: language barrier (Sinhala Speaking ) History of Present Illness HPI narrative: 51-year-old male who has a medical history of COVID-19 otherwise denies any other medical history presenting to the ED with complaints of sudden onset of right lower quadrant abdominal pain for the past few hours. Denies any fevers, chills, dizziness, headaches, neck pain/stiffness, trouble swallowing or breathing, nausea/vomiting/diarrhea or constipation, black or bloody stools, hematuria, dysuria, abnormal penile discharge, thoughts of STDs, flank pain, back pain, recent travel or sick contacts or any other symptoms complaints or concerns at this time. MD elicited complaint: abdominal pain Onset (ago): hour(s) (A few hours prior to arrival) Pain Consistency: constant Location: RLQ Severity: severe Pain scale (0-10): 10 Quality: aching Radiation: none Migration to: no migration Exacerbating factors: nothing Relieving factors: nothing Associated symptoms: denies other symptoms Related Data Previous Rx's Medication Instructions Recorded apixaban 5 mg tablet (Eliquis) 5 mg PO BID 87 days #174 tabs 05/24/20 apixaban 5 mg tablet (Eliquis) 10 mg PO BID #20 tabs 05/24/20 dexamethasone 6 mg tablet 6 mg PO DAILY #6 tabs 05/24/20 Allergies Allergy/AdvReac Type Severity Reaction Status Date / Time ENVIRONMENTAL Allergy Unknown RASH, Uncoded 05/21/20 18:45 HIVES, ITCHY Review of Systems Review of Systems Constitutional : No Fever, No Chills, No Night Sweats, No Fatigue, No Malaise Cardiovascular : No Chest Pain, No SOB Respiratory : No Cough, No Sputum, No Wheezing, No Dyspnea Gastrointestinal : + abdominal pain, No Nausea, No Vomiting, No Diarrhea, No Hematochezia, No Melena Genitourinary : No irregular bleeding, No Dysuria, No Urinary Frequency, No Hematuria,No Urinary Incontinence, No Urgency, No Flank Pain Musculoskeletal : No joint pain, No Myalgias, No Joint Swelling Skin : No Skin Lesions, No rash Neuro : No Weakness, No Numbness, No Paresthesias, No Loss of Consciousness, No Dizziness, No Headache Heme/Lymph: No Lymphadenopathy Endocrine : No Temperature Intolerance Yes all other systems are reviewed and are negative [facility] Past Medical History Attestation statement: The following information was validated with the patient. Source: old records reviewed and nursing notes reviewed Medical History COVID-19 Social History Social History Household Members: Family Housing: House Do you presently have visiting nurse or other home services: No Alcohol intake: current Alcohol intake frequency: a few times a week Advance Directives: No Advance Directives Information Provided: No Advance Directives Date on File: 05/21/20 service: No Current occupational status: employed Physical Exam ED Vital Signs: Vital Signs - 24 hr 08/30/21 17:22 08/31/21 00:14 Temperature 98.6 F 97.0 F Pulse Rate 65 59 Respiratory Rate 14 18 Blood Pressure 114/62 108/64 Pulse Oximetry 99 BMI result Body Mass Index 26.7 Vital signs have been reviewed and all within normal limits Appearance: Alert. Oriented X3. No acute distress. Head: Normal external exam. Normocephalic. Eyes: PERRLA. EOMI. Conjunctiva and sclera normal. Eyelids normal. ENT: Pharynx normal. Uvula midline. Moist mucous membranes. No trismus noted. No drooling noted. No muffled voice noted. Neck: Normal inspection. Neck supple. FROM. No adenopathy. No meningeal signs. CVS: Normal heart rate and rhythm. Heart sound normal. No murmurs noted. Pulses normal throughout. Respiratory: No respiratory distress. Painless inspiration. Breath sounds normal. No wheezes/rales/rhonchi noted. Chest nontender. No accessory muscle usage noted or decreased air movement noted. Abdomen: Soft and moderate tenderness palpation to the right lower quadrant with guarding and rebound tenderness with positive obturators sign/toes sign and Rovsing sign. Negative Mccabe sign. No rigidity noted. Nondistended. Bowel sounds are normal in 4 quadrants. No organomegaly noted. No visible injury noted. Back: No CVA tenderness. Full range of motion noted. Skin: Skin warm and dry. Normal skin color. Normal skin turgor. No rashes/lesions/lacerations noted. Extremities: Extremities exhibit normal range of motion. Extremities nontender. Neuro: Oriented X 3. No motor deficit. No sensory deficit. Reflexes normal. Normal steady gait. CN's II-XII intact bilaterally? Course Course Course Narrative: 22:45pm - 51-year-old male presenting to the ED with complaints of sudden onset of right lower quadrant abdominal pain for the past few hours. Patient had labs while the patient was in the waiting room and patient has an elevated white blood cell count at 11,000. Anion gap 11. BUN 17. Otherwise all other labs are within normal limits. UA within normal limits no evidence of UTI. Plan: Blood cultures, lactic acid, CT scan abdomen pelvis with IV contrast to evaluate for possible appendicitis provide a L IV fluids. Patient refused any pain med or nausea medication re-evaluate. Reevaluation(s) Reevaluation #1: - CT scan abdomen pelvis with IV contrast revealed acute uncomplicated appendicitis. Therefore at this time consulted with Dr. Lane for admission at this time. Patient updated understands and agrees with this plan. Time: 00:27 [facility] - Abdominal Pain Differential Diagnosis Differential diagnosis: Likely acute appendicitis, calculus of kidney and constipation Medical Records Attestation: I reviewed the patient's medical records. Lab Data Attestation: I reviewed the patient's lab results. Result diagrams: 08/30/21 17:29 08/30/21 17:29 Labs: Lab Results 08/30/21 08/30/21 08/30/21 Range/Units 17:29 17:29 18:01 WBC 11.9 H (4.8-10.8) X10*3/uL RBC 5.32 (4.60-5.80) X10*6/uL Hgb 15.2 (14.0-18.0) g/dl Hct 45.8 (42.0-52.0) % MCV 86.1 (80.0-98.0) fL MCH 28.6 (27.0-33.0) pg MCHC 33.2 (31.0-36.0) g/dl RDW 12.8 (11.0-16.0) % Plt Count 206 (160-400) X10*3/uL MPV 9.5 (9.4-12.4) fL Immature Gran % (Auto) 0.3 (0.0-0.4) % Neut % (Auto) 86.4 H (45-73) % Lymph % (Auto) 8.3 L (20-40) % [place] % (Auto) 4.6 (2-11) % Eos % (Auto) 0.2 (0-4) % Baso % (Auto) 0.2 (0-2) % Lymph # (Auto) 1.0 L (1.2-4.9) X10*3/uL [place] # (Auto) 0.6 (0.1-1.2) X10*3/uL Eos # (Auto) 0.0 (0.0-0.4) X10*3/uL Baso # (Auto) 0.0 (0.0-0.2) X10*3/uL Abs Immat Gran (auto) 0.04 H (0.00-0.03) X10*3/uL Absolute Neuts (auto) 10.3 H (2.0-8.3) x10*3/uL Absolute Nucleated RBC 0.000 (0.0-0.012) X10*3/uL Nucleated RBC % (auto) 0.0 (0.0-0.2) /100WBC Sodium 136 (135-145) mmol/L Potassium 4.7 (3.3-5.1) mmol/L Chloride 102 (96-108) mmol/L Carbon Dioxide 28 (22-29) mmol/L Anion Gap 11 L (12-20) BUN 17 H (9-16) mg/dL Creatinine 1.05 (0.5-1.4) mg/dL Estim Creat Clear Calc 82.3 Estimated GFR > 60 Random Glucose 108 (60-115) mg/dL Lactic Acid (0.5-2.0) mmol/L Calcium 9.6 D (8.4-10.2) mg/dL Total Bilirubin 0.4 (0.0-1.0) mg/dL Direct Bilirubin 0.2 (0.0-0.5) mg/dL AST 22 (5-37) U/L ALT 26 (0-40) U/L Alkaline Phosphatase 74 D (39-117) U/L Total Protein 7.5 (6.5-8.0) g/dL Albumin 4.6 D (3.5-5.0) g/dL Lipase 20 (8-78) U/L Urine Color YELLOW Urine Appearance CLEAR Urine pH 6.0 (5.0-8.0) Ur Specific [place] >= 1.030 H (1.005-1.025) Urine Protein NEG (NEG-TRACE) MG/DL Urine Glucose (UA) NEG (NEG) MG/DL Urine Ketones NEG (NEG) MG/DL Urine Blood TRACE (NEG) Urine Nitrite NEG (NEG) Ur Leukocyte Esterase NEG (NEG) Urine RBC 1-4 (0) /HPF Urine WBC 0 (0-4) /HPF Ur Squamous Epith Cells NONE /LPF Urine Bacteria NONE /LPF 08/30/21 Range/Units 23:12 WBC (4.8-10.8) X10*3/uL RBC (4.60-5.80) X10*6/uL Hgb (14.0-18.0) g/dl Hct (42.0-52.0) % MCV (80.0-98.0) fL MCH (27.0-33.0) pg MCHC (31.0-36.0) g/dl RDW (11.0-16.0) % Plt Count (160-400) X10*3/uL MPV (9.4-12.4) fL Immature Gran % (Auto) (0.0-0.4) % Neut % (Auto) (45-73) % Lymph % (Auto) (20-40) % [place] % (Auto) (2-11) % Eos % (Auto) (0-4) % Baso % (Auto) (0-2) % Lymph # (Auto) (1.2-4.9) X10*3/uL [place] # (Auto) (0.1-1.2) X10*3/uL Eos # (Auto) (0.0-0.4) X10*3/uL Baso # (Auto) (0.0-0.2) X10*3/uL Abs Immat Gran (auto) (0.00-0.03) X10*3/uL Absolute Neuts (auto) (2.0-8.3) x10*3/uL Absolute Nucleated RBC (0.0-0.012) X10*3/uL Nucleated RBC % (auto) (0.0-0.2) /100WBC Sodium (135-145) mmol/L Potassium (3.3-5.1) mmol/L Chloride (96-108) mmol/L Carbon Dioxide (22-29) mmol/L Anion Gap (12-20) BUN (9-16) mg/dL Creatinine (0.5-1.4) mg/dL Estim Creat Clear Calc Estimated GFR Random Glucose (60-115) mg/dL Lactic Acid 2.0 (0.5-2.0) mmol/L Calcium (8.4-10.2) mg/dL Total Bilirubin (0.0-1.0) mg/dL Direct Bilirubin (0.0-0.5) mg/dL AST (5-37) U/L ALT (0-40) U/L Alkaline Phosphatase (39-117) U/L Total Protein (6.5-8.0) g/dL Albumin (3.5-5.0) g/dL Lipase (8-78) U/L Urine Color Urine Appearance Urine pH (5.0-8.0) Ur Specific [place] (1.005-1.025) Urine Protein (NEG-TRACE) MG/DL Urine Glucose (UA) (NEG) MG/DL Urine Ketones (NEG) MG/DL Urine Blood (NEG) Urine Nitrite (NEG) Ur Leukocyte Esterase (NEG) Urine RBC (0) /HPF Urine WBC (0-4) /HPF Ur Squamous Epith Cells /LPF Urine Bacteria /LPF Imaging Data CT scan abdomen pelvis with IV contrast: Attestation: I personally reviewed and interpreted this imaging study as follows: Radiologist's impression: FINDINGS: LUNG BASES: The visualized lung bases are unremarkable.? LIVER, GALLBLADDER, AND BILIARY TREE: The liver is normal in size, shape, and attenuation. No focal hepatic lesion or biliary ductal dilatation is present. The gallbladder is unremarkable with no evidence of radiopaque gallstones, gallbladder wall thickening, or obvious pericholecystic inflammatory changes.? PANCREAS: Unremarkable.? SPLEEN: Unremarkable. A small splenule is seen. ADRENAL GLANDS: Unremarkable.? KIDNEYS AND URETERS: The kidneys are normal in size, shape, and attenuation. No hydronephrosis, hydroureter, or calculi seen. No perinephric stranding. ? BLADDER: Unremarkable.? GASTROINTESTINAL TRACT: The small and large bowel are unremarkable. Of note, an 8.4 mm appendicolith is present in the proximal appendix. The entire appendix is dilated at 1.5 cm and there are inflammatory changes seen in the retroperitoneal fat surrounding the appendix. No free air is seen. No periappendiceal fluid collections are present. These findings are consistent with acute uncomplicated appendicitis. ? ABDOMINAL WALL: No significant hernia is appreciated.? LYMPH NODES: No retroperitoneal lymphadenopathy. VASCULAR: Unremarkable. PELVIC VISCERA: A penile prosthesis is seen. [place] is present in the space of [place] on the left. There is very mild BPH. Seminal vesicles appear normal. OSSEOUS STRUCTURES: Unremarkable.? CT/CT abdomen pelvis w con IMPRESSION: ? 1. Acute uncomplicated appendicitis. ? 2. Other incidental findings as described above.? ? Fleischner guidelines were followed. Critical Care Time Critical Care Time Critical Care Time: Yes Total Critical Care Time: 60 Attestation: I personally attest to this time spent taking care of the patient Discharge Plan Discharge Clinical Impression: Acute appendicitis, uncomplicated Patient Disposition: Admitted As Inpatient
[2021-08-30] MEDS: 0.9 % Sodium Chloride 1,000 ML 999 ML IVCONT (23:16)
[2021-08-30 23:32] LABS: Bilirubin Direct 0.2 mg/dL (0.0-0.5); Lipase 20 U/L (8-78)
[2021-08-30 23:41] LABS: Alanine Aminotransferase 26 U/L (0-40); Albumin Level 4.6 g/dL (3.5-5.0); Alkaline Phosphatase 74 U/L (39-117); Aspartate Amino Transferase 22 U/L (5-37); Bilirubin Total 0.4 mg/dL (0.0-1.0); Total Protein 7.5 g/dL (6.5-8.0)
[2021-08-30] MEDS: iohexoL 350 MG/ML 100 ML INFUS..BTL 85 ML IV (23:47)
[2021-08-31] VITALS (11 sets, daily range): BP systolic 99–123; BP diastolic 46–71; PULSE 51–68; RESP 16–18; TEMP 36.1–37; O2SAT 97–100; BMI 26.6
[2021-08-31] MEDS: ondansetron HCL 4 MG/2 ML VIAL IVPUSH (00:09)
--- NOTE | 2021-08-31 00:10 | PC.NURSE ---
Pt vomiting after CT scan. Medicated with Zofran. Pt appears comfortable at this time.
[2021-08-31] MEDS: Piperacillin Sodium/Tazobactam 2.25 GM in 0.9 % Sodium Chloride 50 ML IV (00:56)
[2021-08-31] MEDS: 0.9 % Sodium Chloride 1,000 ML 100 ML IVCONT ×3 (01:05→19:52)
[2021-08-31 01:08] LABS: COVID-19 Test Negative (Negative)
[2021-08-31] MEDS: Morphine Sulfate 4 MG/ML CARTRIDGE 3 MG IVPUSH (01:49)
--- NOTE | 2021-08-31 08:04 | PHA.MEDREC ---
Pharmacy Consult ? Medication Reconciliation Pharmacy has completed the medication reconciliation.Pt states he takes no medications, double checked about the claim history for HCTZ 25mg and cetirizine 10mg, but he insisted no meds.
--- NOTE | 2021-08-31 08:17 | P.HPGS_ITS ---
History of Present Illness History of Present Illness Date of Service: 09/01/21 Chief complaint: Appendicitis Narrative: [place] is a 51 year old male who came to the ED last night for abdominal pain. He says he started to have right lower quadrant pain at around 11 a.m. yesterday. This persisted throughtout the day. He denies fever or chilll. He did not have other GI symptoms. HE has a hx of COVID infection last May 2020 with severe hypoxia. He had a pulmonary embolus at that time and he was on Eliquis for 3 months. He currently denies signfiicant respiratory symptoms. Review of Systems Constitutional: Constitutional: Denies chills and Denies fever(s) Cardiovascular: Cardiovascular: Denies chest pain, Denies dyspnea and Denies dyspnea on exertion Respiratory: Respiratory: Denies cough, Denies dyspnea and Denies dyspnea on exertion Gastrointestinal: Gastrointestinal: Denies hematochezia and Denies change in bowel habits Genitourinary: Genitourinary: Denies hematuria and Denies difficulty urinating Musculoskeletal: Musculoskeletal: Denies back pain and Denies limited range of motion Neurologic: Denies focal weakness and Denies convulsions Psychiatric: Psychiatric: Denies depression and Denies mood swings PMFSH Past Medical History Medical History COVID-19 Social History Social History Household Members: Family Housing: House Do you presently have visiting nurse or other home services: No Alcohol intake: current Alcohol intake frequency: a few times a month Patient Tobacco Use Status: Former Tobacco user Tobacco use type: Cigarette Cigarette Packs Per Day: 0.2 Cigarettes Per Day: 4.0 Years Smoked: 7 Advance Directives Date on File: 05/21/20 service: No Current occupational status: employed Meds Allergies Allergy/AdvReac Type Severity Reaction Status Date / Time ENVIRONMENTAL Allergy Unknown RASH, Uncoded 05/21/20 18:45 HIVES, ITCHY Active Medications: Current Medications Sodium Chloride (Ns) 1,000 mls @ 100 mls/hr IVCONT .Q10H [place] Last Admin: 08/31/21 01:05 Dose: 100 mls/hr Piperacillin Sod/Tazobactam (Sod 3.375 gm/ Sodium Chloride) 50 mls @ 100 mls/hr IV Q6H [facility] Morphine Sulfate (Morphine Sulfate 4 Mg/Ml Cartridge) 3 mg IVPUSH RQ4H PRN; Protocol PRN Reason: Pain, Severe (Pain Scale 7-10) Last Admin: 08/31/21 01:49 Dose: 3 mg Pharmacy Consult (Consult Rx Perform Med Rec) 1 each MISCELLANE ONCE PRN PRN Reason: Consult order Sodium Chloride (0.9 % Sodium Chloride Flush 3 Ml Syringe) 3 ml IVFLUSH QSHIFT [place] Physical Exam Vital Signs: Vital Signs: Last Vital Signs Temp 97.9 F 08/31/21 06:22 Pulse 51 08/31/21 06:22 Resp 18 08/31/21 06:22 BP 110/57 L 08/31/21 06:22 Pulse Ox 97 08/31/21 06:22 O2 Del Method 08/31/21 06:22 BMI result Body Mass Index 26.7 Const: General: comfortable and no acute distress Lam entation/consciousness: patient oriented x3 Neck: Neck: Yes no lymphadenopathy Resp: Auscultation: clear to auscultation bilaterally Cardio: Rhythm: regular rhythm GI: Palpation (GI): Soft to palpation, Tenderness to palpation present (GI) (tender on the RLQ) and no guarding Neuro: General: patient oriented x3 Results Results Labs: Short CBC 08/30/21 Range/Units 17:29 WBC 11.9 H (4.8-10.8) X10*3/uL Hgb 15.2 (14.0-18.0) g/dl Hct 45.8 (42.0-52.0) % Plt Count 206 (160-400) X10*3/uL BMP 08/30/21 17:29 Sodium 136 Potassium 4.7 Chloride 102 Carbon Dioxide 28 BUN 17 H Creatinine 1.05 Calcium 9.6 D Liver Function 08/30/21 Range/Units 17:29 Total Bilirubin 0.4 (0.0-1.0) mg/dL Direct Bilirubin 0.2 (0.0-0.5) mg/dL AST 22 (5-37) U/L ALT 26 (0-40) U/L Alkaline Phosphatase 74 D (39-117) U/L Albumin 4.6 D (3.5-5.0) g/dL Urine 08/30/21 Range/Units 18:01 Urine Color YELLOW Urine Appearance CLEAR Urine pH 6.0 (5.0-8.0) Ur Specific [place] >= 1.030 H (1.005-1.025) Urine Protein NEG (NEG-TRACE) MG/DL Urine Glucose (UA) NEG (NEG) MG/DL Additional studies: Laboratory Results WBC 11.9 X10*3/uL (4.8-10.8) H 08/30/21 17: RBC 5.32 X10*6/uL (4.60-5.80) 08/30/21 17: Hgb 15.2 g/dl (14.0-18.0) 08/30/21 17: Hct 45.8 % (42.0-52.0) 08/30/21 17: MCV 86.1 fL (80.0-98.0) 08/30/21 17: MCH 28.6 pg (27.0-33.0) 08/30/21 17: MCHC 33.2 g/dl (31.0-36.0) 08/30/21 17: RDW 12.8 % (11.0-16.0) 08/30/21 17: Plt Count 206 X10*3/uL (160-400) 08/30/21 17: MPV 9.5 fL (9.4-12.4) 08/30/21 17: Immature Gran % (Auto) 0.3 % (0.0-0.4) 08/30/21 17: Neut % (Auto) 86.4 % (45-73) H 08/30/21 17:29 Lymph % (Auto) 8.3 % (20-40) L 08/30/21 17:29 [place] % (Auto) 4.6 % (2-11) 08/30/21 17:29 Eos % (Auto) 0.2 % (0-4) 08/30/21 17: Baso % (Auto) 0.2 % (0-2) 08/30/21 17:29 Lymph # (Auto) 1.0 X10*3/uL (1.2-4.9) L 08/30/21 17:29 [place] # (Auto) 0.6 X10*3/uL (0.1-1.2) 08/30/21 17:29 Eos # (Auto) 0.0 X10*3/uL (0.0-0.4) 08/30/21 17: Baso # (Auto) 0.0 X10*3/uL (0.0-0.2) 08/30/21 17:29 Abs Immat Gran (auto) 0.04 X10*3/uL (0.00-0.03) H 08/30/21 17: Absolute Neuts (auto) 10.3 x10*3/uL (2.0-8.3) H 08/30/21 17: Absolute Nucleated RBC 0.000 X10*3/uL (0.0-0.012) 08/30/21 17: Nucleated RBC % (auto) 0.0 /100WBC (0.0-0.2) 08/30/21 17:29 Sodium 136 mmol/L (135-145) 08/30/21 17: Potassium 4.7 mmol/L (3.3-5.1) 08/30/21 17: Chloride 102 mmol/L (96-108) 08/30/21 17: Carbon Dioxide 28 mmol/L (22-29) 08/30/21 17:29 Anion Gap 11 (12-20) L 08/30/21 17:29 BUN 17 mg/dL (9-16) H 08/30/21 17:29 Creatinine 1.05 mg/dL (0.5-1.4) 08/30/21 17:29 Estim Creat Clear Calc 82.3 08/30/21 17:29 Estimated GFR > 60 08/30/21 17:29 Random Glucose 108 mg/dL (60-115) 08/30/21 17:29 Lactic Acid 2.0 mmol/L (0.5-2.0) 08/30/21 23:12 Calcium 9.6 mg/dL (8.4-10.2) D 08/30/21 17:29 Total Bilirubin 0.4 mg/dL (0.0-1.0) 08/30/21 17: Direct Bilirubin 0.2 mg/dL (0.0-0.5) 08/30/21 17: AST 22 U/L (5-37) 08/30/21 17: ALT 26 U/L (0-40) 08/30/21 17:29 Alkaline Phosphatase 74 U/L (39-117) D 08/30/21 17:29 Total Protein 7.5 g/dL (6.5-8.0) 08/30/21 17: Albumin 4.6 g/dL (3.5-5.0) D 08/30/21 17: Lipase 20 U/L (8-78) 08/30/21 17:29 Urine Color YELLOW 08/30/21 18:01 Urine Appearance CLEAR 08/30/21 18:01 Urine pH 6.0 (5.0-8.0) 08/30/21 18:01 Ur Specific [place] >= 1.030 (1.005-1.025) H 08/30/21 18:01 Urine Protein NEG MG/DL (NEG-TRACE) 08/30/21 18:01 Urine Glucose (UA) NEG MG/DL (NEG) 08/30/21 18:01 Urine Ketones NEG MG/DL (NEG) 08/30/21 18:01 Urine Blood TRACE (NEG) 08/30/21 18:01 Urine Nitrite NEG (NEG) 08/30/21 18:01 Ur Leukocyte Esterase NEG (NEG) 08/30/21 18:01 Urine RBC 1-4 /HPF (0) 08/30/21 18:01 Urine WBC 0 /HPF (0-4) 08/30/21 18:01 Ur Squamous Epith Cells NONE /LPF 08/30/21 18:01 Urine Bacteria NONE /LPF 08/30/21 18:01 COVID-19 ([place]) Negative (Negative) 08/31/21 00:41 COVID-19 Clin Com See Note 08/31/21 00:41 Impressions Abdomen/Pelvis CT 08/30/21 23:40 IMPRESSION: 1. Acute uncomplicated appendicitis. 2. Other incidental findings as described above. Fleischner guidelines were followed. Assessment and Plan (1) Acute appendicitis, uncomplicated: Status: Acute He has had RLQ pain since yesterday morning. He has leukocytosis and his CT scan shows inflammatory changes in the appendix and an appendicolith c/w acute ap pendicitis. I explained to him it will be best to proceed with laparoscopic appendectomy. I explained the technique of lap appy/possible open. I reviewed the risks including but not limited to bleeding, infections, injury to bowel and urinary tract, staple line leak, inherent risks of anesthesia, as well as the benefits and alternatives (IV abx treatment). He wants to proceed with lap appendectomy. He is added on the the OR schedule today. Quality Stroke Does the patient have a stroke diagnosis?: No VTE Prior VTE?: No VTE Risk Level:: Surgical - low VTE Device Contraindication: N/A - Device Ordered VTE Drug Contraindication: N/A - Med Ordered Procedures Date of Service Date of Service: 08/31/21
--- NOTE | 2021-08-31 09:40 | PC.NURSE ---
report given to sss.
[2021-08-31] MEDS: cefoTEtan disodium 2 GM in 0.9 % Sodium Chloride 50 ML IV (11:30)
--- NOTE | 2021-08-31 13:58 | PC.NURSE ---
PT TRANSPORTED TO SURGERY BY [facility]. ALL BELONGINGS ACCOMPANIED PATIENT
--- NOTE | 2021-08-31 14:13 | MHC.CM.PN ---
CM ATTEMPTED TO SEE PT WHO WAS OFF UNIT
--- NOTE | 2021-08-31 15:54 | HO.ANESPROP2 ---
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 , was on 3 month anticoagulation PMF Active Problems Active Problems: All Active Problems (Updated 08/31/21 @ 00:29 by JESÚS Antoine) Acute appendicitis, uncomplicated (Acute) Pulmonary emboli (Acute) [id number] syndrome (Acute) Past Medical History Medical History COVID-19 Family History Family history of problems with anesthesia: No Surgical History History of Problems with Anesthesia: No Social History Social History Household Members: Family Housing: House Do you presently have visiting nurse or other home services: No Alcohol intake: current Alcohol intake frequency: a few times a month Patient Tobacco Use Status: Former Tobacco user Tobacco use type: Cigarette Years Smoked: 7 Smoked in Last 30 Days: No Use of substances other than those prescribed or required for medical reasons: No Are you DNR?: No Advance Directives: No Advance Directives Information Provided: No Advance Directives Date on File: 05/21/20 service: No Current occupational status: employed Meds Allergies Allergy/AdvReac Type Severity Reaction Status Date / Time ENVIRONMENTAL Allergy Unknown RASH, Uncoded 05/21/20 18:45 HIVES, ITCHY Active Medications: Current Medications Fentanyl (Fentanyl Citrate/Pf 100 Mcg/2 Ml Vial) 25 mcg IVPUSH Q5M PRN; Protocol PRN Reason: Pain, Moderate (Pain Scale 4-6 Sodium Chloride (Ns) 1,000 mls @ 100 mls/hr IVCONT .Q10H [facility] Last Admin: 08/31/21 11:12 Dose: 100 mls/hr Piperacillin Sod/Tazobactam (Sod 3.375 gm/ Sodium Chloride) 50 mls @ 100 mls/hr IV Q6H [facility] Promethazine HCl 12.5 mg/ (Sodium Chloride) 50.5 mls @ 202 mls/hr IV ONCE PRN PRN Reason: Nausea and Vomiting Morphine Sulfate (Morphine Sulfate 4 Mg/Ml Cartridge) 3 mg IVPUSH RQ4H PRN; Protocol PRN Reason: Pain, Severe (Pain Scale 7-10) Last Admin: 08/31/21 01:49 Dose: 3 mg Oxycodone HCl (Oxycodone Hcl Immed Release 5 Mg Tablet) 5 mg PO ONCE PRN PRN Reason: Pain, Severe (Pain Scale 7-10) Pharmacy Consult (Consult Rx Perform Med Rec) 1 each MISCELLANE ONCE PRN PRN Reason: Consult order Sodium Chloride (0.9 % Sodium Chloride Flush 3 Ml Syringe) 3 ml IVFLUSH QSHIFT [facility] Home Medications Medication Instructions Recorded Confirmed Last Taken Type No Known Home Meds 08/31/21 08/31/21 Unknown History Exam Exam Date and Time: August 31, 2021 1554 Height,Weight and Vital Signs: Height 5 ft 8 in Weight 79.379 kg Last Vital Signs Temp 97.3 F 08/31/21 14:08 Pulse 55 08/31/21 14:08 Resp 16 08/31/21 14:08 BP 122/70 08/31/21 14:08 Pulse Ox 100 08/31/21 14:08 O2 Del Method 08/31/21 14:08 Pertinent Lab Results Pertinent Lab Results: Laboratory Tests 08/30/21 08/30/21 08/30/21 17:29 17:29 18:01 WBC 11.9 H RBC 5.32 Hgb 15.2 Hct 45.8 MCV 86.1 MCH 28.6 MCHC 33.2 RDW 12.8 Plt Count 206 MPV 9.5 Immature Gran % (Auto) 0.3 Neut % (Auto) 86.4 H Lymph % (Auto) 8.3 L [place] % (Auto) 4.6 Eos % (Auto) 0.2 Baso % (Auto) 0.2 Lymph # (Auto) 1.0 L [place] # (Auto) 0.6 Eos # (Auto) 0.0 Baso # (Auto) 0.0 Abs Immat Gran (auto) 0.04 H Absolute Neuts (auto) 10.3 H Absolute Nucleated RBC 0.000 Nucleated RBC % (auto) 0.0 Sodium 136 Potassium 4.7 Chloride 102 Carbon Dioxide 28 Anion Gap 11 L BUN 17 H Creatinine 1.05 Estim Creat Clear Calc 82.3 Estimated GFR > 60 Random Glucose 108 Lactic Acid Calcium 9.6 D Total Bilirubin 0.4 Direct Bilirubin 0.2 AST 22 ALT 26 Alkaline Phosphatase 74 D Total Protein 7.5 Albumin 4.6 D Lipase 20 Urine Color YELLOW Urine Appearance CLEAR Urine pH 6.0 Ur Specific [place] >= 1.030 H Urine Protein NEG Urine Glucose (UA) NEG Urine Ketones NEG Urine Blood TRACE Urine Nitrite NEG Ur Leukocyte Esterase NEG Urine RBC 1-4 Urine WBC 0 Ur Squamous Epith Cells NONE Urine Bacteria NONE COVID-19 ([facility]) COVID-19 Clin Com 08/30/21 08/31/21 23:12 00:41 WBC RBC Hgb Hct MCV MCH MCHC RDW Plt Count MPV Immature Gran % (Auto) Neut % (Auto) Lymph % (Auto) [place] % (Auto) Eos % (Auto) Baso % (Auto) Lymph # (Auto) [place] # (Auto) Eos # (Auto) Baso # (Auto) Abs Immat Gran (auto) Absolute Neuts (auto) Absolute Nucleated RBC Nucleated RBC % (auto) Sodium Potassium Chloride Carbon Dioxide Anion Gap BUN Creatinine Estim Creat Clear Calc Estimated GFR Random Glucose Lactic Acid 2.0 Calcium Total Bilirubin Direct Bilirubin AST ALT Alkaline Phosphatase Total Protein Albumin Lipase Urine Color Urine Appearance Urine pH Ur Specific [place] Urine Protein Urine Glucose (UA) Urine Ketones Urine Blood Urine Nitrite Ur Leukocyte Esterase Urine RBC Urine WBC Ur Squamous Epith Cells Urine Bacteria COVID-19 ([facility]) Negative COVID-19 Clin Com See Note Airway Mallampati Class: IV TM Dist: >3cm Neck ROM: Full Loose/Missing/Broken Teeth: Yes (Chipped upper tooth ) Heart: S1,S2 Lungs: b/l breath sounds Assessment and Plan Assessment Anesthesia Assessment: Anesthesia Plan Discussed and Chart Reviewed Final Anesthetic Review Family History of Problems with Anesthesia: No History of Problems with Anesthesia: No NPO: Yes ASA Class: II and Emergency Final Preanesthetic Review: Meds/Allgs Chart Reviewed, Consent Obtained/Reviewed and Anes Risks/Benef Reviewed Patient Risk: Intermediate Procedure Risk: Intermediate Anesthetic Plan Anesthetic Plan: GA Disposition: Standard PACU
--- NOTE | 2021-08-31 17:29 | P.OP_ITS ---
Operative Note Operative Note Date of Service: 08/31/21 Narrative: preop diagnosis: With appendicitis Postop diagnosis: Acute appendicitis Procedure: Laparoscopic appendectomy surgeon: James Yadav MD Patient is a 51-year-old male who came in through the emergency room last night because of right lower quadrant pain and tenderness. His CAT scan showed in flow july delgado of the appendix at the distal 3rd. Colon this was consistent with acute appendicitis. I explained to her the technique of laparoscopic appendectomy. I discussed the risks including but not limited to bleeding, infection, conversion to open, bowel injury, as well as the benefits alternatives. He understood and wanted to proceed . He was brought to the operating room. He was placed supine under general anesthesia via endotracheal tube. A Schwartz catheter was inserted. The abdomen is prepped draped usual sterile fashion. A surgical time-out was done. The patient received Cefotan 2 g IV preoperatively I made a short infraumbilical incision using blade 15. This was carried down through the full-thickness of the skin and subcutaneous fat down to the fascia. The fascia was incised. The peritoneum was entered. Through this incision, a Cristina port was introduced. pneumoperitoneum was introduced to the pressure of 15 mm hg. From here on the rest of procedure was done under vision with the laparoscope. We were using a 10 mm 30 degree scope. A placed another 5/12 the port with in the left lower quadrant through a small incision. A 5 mm port introduced a small cyst on in the suprapubic margin. Patient was placed in a head-down and petb-iidg-mokr position. The abdominal cavity was examined. There was note of a large mass on the left pelvic area which was consistent with his reservoir for his penile implant. This was clearly away from our ports. I proceeded to examine the right side of the abdomen. The cecum was seen and immediately, the appendix was noted. This was indurated at the distal half. I applied a grasper gently on the appendix to retract this. I was able to therefore put this on stretch in view the entire appendix. The proximal half appeared to be non inflamed. I was able to visualize the base of the appendix. I used the [place] dissector to gently create a mesenteric defect at the base. I then positioned an Endo-ROXANNE 60 mm stapler across the base. This was part of the appendix was transected. I used the LigaSure to divide the me so appendix. I completely the appendix and this was retrieved through an endobag through the umbilical incision. I reinserted all ports and re-insufflated. I examined the intra-abdominal cavity carefully. All 4 quadrants were seen. There was no evidence of any bowel injury. Again, the distended wrist linux server administrator for the penile implant was seen on the left side in the pelvis and appeared to be intact without any injury. Once hemostasis was ensured, I proceeded to then desufflate the port sites. I removed all ports under vision. The umbilical port was removed last. The fascia of the umbilical incision was closed with [id number] Dexon 0 stitch. Skin closure was achieved on all incisions using Dexon 4-0 subcuticular running sutures. Steri-Strips and dressings were applied. All incisions were infiltrated with Marcaine 0.5% for postop analgesia. The procedure was completed The patient tolerated procedure well. There were no complication noted. Initial final counts of sponges and instruments were correct. Estimated blood loss was 10 cc The patient was extubated without difficulty and transferred to the recovery room with stable vital signs.
[2021-08-31] MEDS: Piperacillin Sodium/Tazobactam 3.375 GM in 0.9 % Sodium Chloride 50 ML IV (19:55)
[2021-08-31] MEDS: oxyCODONE HCl Immed Release 5 MG TABLET PO (21:57)
[2021-09-01] VITALS: BP 117/63; PULSE 66; RESP 16; TEMP 36.4; O2SAT 95
[2021-09-01 02:11] VITALS: BMI 26.6
[2021-09-01] MEDS: Piperacillin Sodium/Tazobactam 3.375 GM in 0.9 % Sodium Chloride 50 ML IV ×2 (02:29→06:45)
[2021-09-01] MEDS: Morphine Sulfate 4 MG/ML CARTRIDGE 3 MG IVPUSH ×2 (02:34→06:44)
[2021-09-01 04:00] VITALS: BP 105/59; PULSE 60; RESP 18; TEMP 36.5; O2SAT 95
[2021-09-01] MEDS: 0.9 % Sodium Chloride 1,000 ML 100 ML IVCONT (06:39)
[2021-09-01 07:17] VITALS: BP 100/48; PULSE 52; RESP 18; TEMP 36.3; O2SAT 95
--- NOTE | 2021-09-01 10:06 | PM.PNGS ---
Subjective Subjective Date of Service: 09/01/21 Interval history: Says he was fine overnight Good pain control Tolerating clear liquids Physical Exam Vital Signs: Vital Signs: Last Vital Signs Temp 97.3 F 09/01/21 07:17 Pulse 52 09/01/21 07:17 Resp 18 09/01/21 07:17 BP 100/48 L 09/01/21 07:17 Pulse Ox 95 09/01/21 07:17 O2 Del Method 09/01/21 07:17 O2 Flow Rate 2 08/31/21 18:15 BMI result Body Mass Index 26.6 Const: Other: Looks well General: comfortable and no acute distress Resp: Effort & Inspection: normal respiratory effort Cardio: Rate: regular rate GI: Other: Soft, no guarding rebound, dressings dry Objective Data Active Medications Fentanyl (Fentanyl Citrate/Pf 100 Mcg/2 Ml Vial) 25 mcg IVPUSH Q5M PRN; Protocol PRN Reason: Pain, Moderate (Pain Scale 4-6 Fentanyl (Fentanyl Citrate/Pf 100 Mcg/2 Ml Vial) 25 mcg IVPUSH Q5M PRN; Protocol PRN Reason: Pain, Moderate (Pain Scale 4-6 Hydromorphone HCl (Hydromorphone Hcl 0.5 Mg/0.5 Ml Syringe) 0.25 mg IVPUSH Q5M PRN; Protocol PRN Reason: Pain, Severe (Pain Scale 7-10) Hydromorphone HCl (Hydromorphone Hcl 0.5 Mg/0.5 Ml Syringe) 0.25 mg IVPUSH Q5M PRN; Protocol PRN Reason: Pain, Severe (Pain Scale 7-10) Sodium Chloride (Ns) 1,000 mls @ 100 mls/hr IVCONT .Q10H [facility] Last Admin: 09/01/21 06:39 Dose: 100 mls/hr Documented By: SOM Piperacillin Sod/Tazobactam (Sod 3.375 gm/ Sodium Chloride) 50 mls @ 100 mls/hr IV Q6H [facility] Last Infusion: 09/01/21 07:31 Dose: 0 mls/hr Documented By: CIPRIANO Promethazine HCl 12.5 mg/ (Sodium Chloride) 50.5 mls @ 202 mls/hr IV ONCE PRN PRN Reason: Nausea and Vomiting Promethazine HCl 6.25 mg/ (Sodium Chloride) 50.25 mls @ 201 mls/hr IV ONCE PRN PRN Reason: Nausea and Vomiting Promethazine HCl 12.5 mg/ (Sodium Chloride) 50.5 mls @ 202 mls/hr IV ONCE PRN PRN Reason: Nausea and Vomiting Morphine Sulfate (Morphine Sulfate 4 Mg/Ml Cartridge) 3 mg IVPUSH RQ4H PRN; Protocol PRN Reason: Pain, Severe (Pain Scale 7-10) Last Admin: 09/01/21 06:44 Dose: 3 mg Documented By: SOM Oxycodone HCl (Oxycodone Hcl Immed Release 5 Mg Tablet) 5 mg PO ONCE PRN PRN Reason: Pain, Severe (Pain Scale 7-10) Oxycodone HCl (Oxycodone Hcl Immed Release 5 Mg Tablet) 5 mg PO Q4H PRN PRN Reason: Pain, Moderate (Pain Scale 4-6 Last Admin: 08/31/21 21:57 Dose: 5 mg Documented By: SOM Oxycodone HCl (Oxycodone Hcl Immed Release 5 Mg Tablet) 5 mg PO ONCE PRN PRN Reason: Pain, Severe (Pain Scale 7-10) Pharmacy Consult (Consult Rx Perform Med Rec) 1 each MISCELLANE ONCE PRN PRN Reason: Consult order Sodium Chloride (0.9 % Sodium Chloride Flush 3 Ml Syringe) 3 ml IVFLUSH [facility] Last Admin: 09/01/21 07:28 Dose: Not Given Documented By: CIPRIANO Non-Admin Reason: IV Running Labs CBC & Chem 7: 08/30/21 17:29 08/30/21 17:29 Microbiology Microbiology Results: Microbiology 08/30/21 23:12 Blood Culture - Preliminary Blood - Venous No growth after 24 hours. 08/30/21 23:12 Blood Culture - Preliminary Blood - Venous No growth after 24 hours. Procedures Date of Service Date of Service: 09/01/21 Progress Note: A&P Assessment and plan (1) Acute appendicitis, uncomplicated: Status: Acute Assessment and Plan: Doing well status post laparoscopic appendectomy Advance diet Likely home later on today Discharge instructions given Will see in the office for follow-up Time Spent With Patient Time: Total time spent is greater than 50% in coordination of care (as documented) at patient's floor/unit and/or counseling patient: Quality Stroke Does the patient have a stroke diagnosis?: No VTE Prior VTE?: No VTE Risk Level:: Surgical - low VTE Device Contraindication: N/A - Device Ordered VTE Drug Contraindication: N/A - Med Ordered
--- NOTE | 2021-09-01 11:36 | HO.POSTANES ---
Post Anesthesia Evaluation Post Anesthesia Evaluation Vital Signs: Vital Signs Temp Pulse Resp BP Pulse Ox O2 Del Method 09/01/21 07:17 97.3 F 52 18 100/48 L 95 Room Air 09/01/21 04:00 97.7 F 60 18 105/59 L 95 Room Air 09/01/21 00:00 97.5 F 66 16 117/63 95 Room Air Anesthesia: General Endotracheal-GETA Mental Status: Awake Pain Control: Satisfactory Nausea/Vomiting: None Hydration: Adequate Anesthesia-Related Issues: No Anes. Related Issues
[2021-09-01 11:44] VITALS: BP 96/52; PULSE 50; RESP 18; TEMP 36.7; O2SAT 94
--- NOTE | 2021-09-01 15:18 | MHC.CM.PN ---
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 D/C PLAN: HOME TODAY W/OUT PT FOLLOW-UP W/SURGEON, FAMILY FOR TRANSPORT
--- NOTE | 2021-09-01 16:34 | PM.DS ---
DS: Providers Provider Date of Service: 09/01/21 Date of admission: 08/31/21 00:42 Date of discharge: 09/01/21 Primary care physician: Unknown Physician DS: Diagnosis Discharge Diagnosis (1) Acute appendicitis, uncomplicated: Status: Acute DS: Summary Hospital Course Hospital Course: 51-year-old male came to the ER because of right lower quadrant pain and tenderness on 08/31/2021. His CAT scan was consistent with acute appendicitis. He was tender in right lower quadrant. With therefore proceeded with laparoscopic appendectomy that same day. He tolerated procedure well. There were no immediate complications. He was started on clear liquids and this was advanced on the morning of his 1st postop day. He continue to tolerated. He has good pain control and looked clinically well. He was therefore discharged on 09/01/2021. Time Spent with Patient Time attestation: Total time spent providing and/or coordinating discharge services: Discharge coordination time: Less than 30 minutes Quality: Safe Use of Opioids Does Pt have an Active Cancer Diagnosis on the Problem List?: No Quality: Stroke Does the patient have a stroke diagnosis?: No Physical Exam Vital Signs: Vital Signs: Last Vital Signs Temp 98.0 F 09/01/21 11:44 Pulse 50 09/01/21 11:44 Resp 18 09/01/21 11:44 BP 96/52 L 09/01/21 11:44 Pulse Ox 94 09/01/21 11:44 O2 Del Method 09/01/21 11:44 O2 Flow Rate 2 08/31/21 18:15 BMI result Body Mass Index 26.6 DS: Data Data Completed and Pending Pending studies at discharge: Pending at discharge 08/31/21 17:15 Surgical [PTH] Routine Labs on day of discharge: Preliminary micro results at discharge 08/30/21 23:12 Blood Culture - Preliminary Blood - Venous No growth after 24 hours. 08/30/21 23:12 Blood Culture - Preliminary Blood - Venous No growth after 24 hours. Discharge Plan Discharge Patient Disposition: Home, Self-Care Discharge Diagnosis: Acute appendicitis Referrals: James Yadav MD [Physician] - 1 Week Physician,Unknown J [Primary Care Provider] - 1 Week Discharge Medications: New oxycodone-acetaminophen [Percocet] 5-325 mg tablet 1 tab PO Q4-6H PRN (Reason: pain) Qty: 30 0RF Rx Instructions: Partial Fill upon patient request. ibuprofen 600 mg tablet 600 mg PO Q6H PRN (Reason: pain) Qty: 30 0RF Discharge Orders: Discharge Order (Routine); Ordered 09/01/21 Ordered By: James Yadav Activity on Discharge: As tolerated Stand Alone Forms: Patient Portal Discharge page Activity Restrictions/Additional Instructions: If the incision area is tender, you may apply an ice pack for short intervals (No more than 20 minutes on, followed by at least 20 minutes off). Do not apply heat. Do not use creams, lotions, or topical antibiotics unless instructed to do so by your surgeon. These can cause infection or allergic reaction. OK to shower OK to change dressings with Bandaids No lifting more than 20 lbs No strenuous activities Call the office for follow-up in 2 weeks - with Dr. Yadav Call Your Doctor If: -Your temperature exceeds 101.5? F -You experience excessive pain or swelling -You have an unexpected reaction to medication -You have excessive bleeding -You experience continued vomiting/nausea -Your incision begins to separate -Your incision shows signs of infection such as increased redness, swelling, excessive pain, drainage (light blood or clear fluid is normal) or heat Care Plan Goals: Control pain Health Concerns: Has history of PE Plan of Treatment: Oral pain medications No lifting Assessment: Doing very well postoperatively Discharge Date/Time: 09/01/21 13:58
== END 2021-09-01 13:58 | disposition home or self-care (01) | DRG 234 ==
LOC: HO.ED 08-31 00:29 → HO.EDOVER 08-31 00:49 → HO.IMC 08-31 17:25 → HO.S3 08-31 19:01
PROVIDERS: Physician Assistant Medical; Surgery; Admitting Provider Surgery; Emergency Provider Emergency Medicine Emergency Medical Services; Visit Provider Surgery
PROC: 0DTJ4ZZ Resection of Appendix, Percutaneous Endoscopic Approach (ICD-10-PCS; CPT 44970; principal; 2021-08-31 14:30)
DX: K35.80 Unspecified acute appendicitis (principal); Z20.822 Contact with and (suspected) exposure to COVID-19; Z86.16 Personal history of COVID-19; Z87.891 Personal history of nicotine dependence; Z86.711 Personal history of pulmonary embolism
CPT/HCPCS: 44970; 36415; 74177; 80048; 80076; 81001; 83605; 83690; 85025; 87040; 87635; 88304; 96361; 96365; 96375; 99284; 99285; J1100; J2250; J2270; J2405; J2543; J3010; Q9967

== ENCOUNTER 2021-09-09 18:35 | Emergency (ER) | payer MEDICAID, SELFPAY ==
[2021-09-09 18:45] VITALS: BP 116/56; PULSE 63; RESP 16; TEMP 37.1; O2SAT 98; BMI 26.6
[2021-09-09 19:33] LABS: Hematocrit 42.9 % (42.0-52.0); Hemoglobin 14.2 g/dl (14.0-18.0); Mean Corpuscular HGB Conc 33.1 g/dl (31.0-36.0); Mean Corpuscular Hemoglobin 28.2 pg (27.0-33.0); Mean Corpuscular Volume 85.1 fL (80.0-98.0); Mean Platelet Volume 9.2 fL (9.4-12.4); Platelet Count 236 X10*3/uL (160-400); Red Blood Count 5.04 X10*6/uL (4.60-5.80); Red Cell Distribution Width 12.9 % (11.0-16.0); White Blood Count 5.8 X10*3/uL (4.8-10.8)
[2021-09-09 19:55] LABS: Anion Gap 11 (12-20); Blood Urea Nitrogen 22 mg/dL (9-16); Carbon Dioxide 27 mmol/L (22-29); Chloride 107 mmol/L (96-108); Creatinine Clr Calc Pharmacy 83.9; Estimated Glomerular Filt Rate > 60; Glucose Random 103 mg/dL (60-115); Potassium 4.1 mmol/L (3.3-5.1); Sodium 141 mmol/L (135-145)
--- NOTE | 2021-09-09 21:05 | ED_ITS ---
HPI - Skin/Abscess/Foreign Bdy General Chief complaint: Skin/Abscess/Foreign Body Stated complaint: lower abdominal pain Time Seen by Provider: 09/09/21 20:56 Source: patient Mode of arrival: ambulatory History of Present Illness HPI narrative: 51-year-old male who is postop day 9 from laparoscopic appendectomy and presents with concerns regarding the left lower quadrant laparoscopic site which has mild erythema but he denies any fevers or chills. Related Data Previous Rx's Medication Instructions Recorded ibuprofen 600 mg tablet 600 mg PO Q6H PRN pain #30 tabs 09/01/21 oxycodone-acetaminophen 5 mg-325 1 tab PO Q4-6H PRN pain #30 tabs 09/01/21 mg tablet (Percocet) Allergies Allergy/AdvReac Type Severity Reaction Status Date / Time ENVIRONMENTAL Allergy Unknown RASH, Uncoded 05/21/20 18:45 HIVES, ITCHY Review of Systems Review of Systems: Pertinent positives and negatives as stated in HPI 10 point review of systems is otherwise negative. [facility] Past Medical History Source: nursing notes reviewed Medical History COVID-19 Social History Social History Household Members: Family Housing: House Do you presently have visiting nurse or other home services: No Alcohol intake: current Alcohol intake frequency: a few times a month Patient Tobacco Use Status: Former Tobacco user Tobacco use type: Cigarette Cigarette Packs Per Day: 0.2 Cigarettes Per Day: 4.0 Years Smoked: 7 Advance Directives: Yes Advance Directives Information Provided: No Advance Directives on File: No Advance Directives Date on File: 05/21/20 service: No Current occupational status: employed Physical Exam Vital Signs: Vital Signs: Last Vital Signs Temp 98.7 F 09/09/21 18:45 Pulse 63 09/09/21 18:45 Resp 16 09/09/21 18:45 BP 116/56 L 09/09/21 18:45 Pulse Ox 98 09/09/21 18:45 O2 Del Method 09/09/21 18:45 BMI result Body Mass Index 26.6 VITAL SIGNS: Reviewed. GENERAL: Well developed, well nourished, in no acute distress. HEAD: Normocephalic/atraumatic EYES: PERRLA, EOMI EARS: Ext canals without abnormality OROPHARYNX: no oral lesions noted, posterior pharynx clear LUNGS: Normal breath sounds. No adventitious sounds or accessory muscle use. SpO2<98> CARDIOVASCULAR: Regular rate and rhythm without noted murmurs ABDOMEN: Soft, umbilical incision/suprapubic incision well-healed minimal bruising and left lower quadrant incision does appear mildly erythematous with no obvious purulence drainage but good granulation in appears to be appropriately healing with evidence likely exacerbation from the band of his pants, non-distended with bowel sounds. MUSCULOSKELETAL: No tenderness, deformities, or effusions noted on gross inspection. EXTREMITIES: No cyanosis, clubbing or edema. SKIN: Inspection of the skin reveals no rashes NEUROLOGIC: Alert and oriented x 4. Strength and sensation to light touch were grossly intact x 4. Course Course Course Narrative: 51-year-old male who is postop day 9 from laparoscopic appendectomy, with well- healing laparoscopic sites with the exception of left lower quadrant which appears to be more irritated than infected and likely as result from rubbing on his pants. Patient was instructed to keep the wound carefully covered and to continue to cleanse gently with soap and water. In addition, patient was instructed follow-up with Dr. Joanne esposito on Saturday morning for re-evaluation. MDM - Skin/Abscess/Foreign Bdy Lab Data Result diagrams: 09/09/21 19:29 09/09/21 19:29 Labs: Lab Results 09/09/21 09/09/21 Range/Units 19:29 19:29 WBC 5.8 (4.8-10.8) X10*3/uL RBC 5.04 (4.60-5.80) X10*6/uL Hgb 14.2 (14.0-18.0) g/dl Hct 42.9 (42.0-52.0) % MCV 85.1 (80.0-98.0) fL MCH 28.2 (27.0-33.0) pg MCHC 33.1 (31.0-36.0) g/dl RDW 12.9 (11.0-16.0) % Plt Count 236 (160-400) X10*3/uL MPV 9.2 L (9.4-12.4) fL Absolute Nucleated RBC 0.000 (0.0-0.012) X10*3/uL Nucleated RBC % (auto) 0.0 (0.0-0.2) /100WBC Sodium 141 (135-145) mmol/L Potassium 4.1 (3.3-5.1) mmol/L Chloride 107 (96-108) mmol/L Carbon Dioxide 27 (22-29) mmol/L Anion Gap 11 L (12-20) BUN 22 H (9-16) mg/dL Creatinine 1.03 (0.5-1.4) mg/dL Estim Creat Clear Calc 83.9 Estimated GFR > 60 Random Glucose 103 (60-115) mg/dL Calcium 9.0 D (8.4-10.2) mg/dL Discharge Plan Discharge Clinical Impression: Visit for wound check, Status post laparoscopic appendectomy Patient Disposition: Home, Self-Care Instructions: Wound Healing and Your Diet (ED) Additional Instructions: 1. Reanudar los medicamentos seg?n lo prescrito. 2. El seguimiento con la . Joanne es el lunes por la ma?jessica llamando a la oficina para basilio reevaluaci?n. 3. Mantenga el sitio reece protegido con Band-Aid en un intento de evitar que la chapman de armendariz pantal?n roce la herida. Regrese a la elías de emergencias si los s?ntomas empeoran. Prescriptions: No Action oxycodone-acetaminophen [Percocet] 5-325 mg tablet 1 tab PO Q4-6H PRN (Reason: pain) Qty: 30 0RF Rx Instructions: Partial Fill upon patient request. ibuprofen 600 mg tablet 600 mg PO Q6H PRN (Reason: pain) Qty: 30 0RF Referrals: [facility] [Primary Care Provider] - James Yadav MD [Physician] - Print Language: Italian
[2021-09-09 21:09] VITALS: BP 128/74; PULSE 53; RESP 18; TEMP 36.1; O2SAT 100
== END 2021-09-09 21:38 | disposition home or self-care (01) ==
PROVIDERS: Emergency Provider Student in an Organized Health Care Education/Training Program
DX: Z48.01 Encounter for change or removal of surgical wound dressing (principal); Z98.890 Other specified postprocedural states; R10.32 Left lower quadrant pain
CPT/HCPCS: 36415; 80048; 85027; 99282; 99283

== ENCOUNTER 2021-11-06 19:25 | Emergency (ER) | payer MEDICAID, SELFPAY ==
--- NOTE | ~2021-11-06 | XR_ITS ---
EXAMINATION: XR HAND, LEFT CLINICAL INFORMATION: Left hand numbness COMPARISON: None TECHNIQUE: PA, lateral, and oblique views of the left hand. FINDINGS: No acute fracture or dislocation. Small bone fragment along the dorsal carpus on the lateral view compatible with a prior triquetral avulsion fracture. Joint spaces throughout the hand and wrist are maintained. No chondrocalcinosis or erosions. XR/XR hand LT 2V IMPRESSION: 1. No acute osseous injury. 2. No osteoarthritic change or evidence of erosive arthropathy. 3. Findings consistent with remote prior triquetral avulsion fracture.
[2021-11-06 19:30] VITALS: BP 133/71; PULSE 69; RESP 18; TEMP 36.7; O2SAT 96; BMI 26.6
--- NOTE | 2021-11-06 20:24 | ED.EXTPRO ---
HPI - Extremity Problem General Chief complaint: Extremity Injury, Upper Stated complaint: Left hand pain Time Seen by Provider: 11/06/21 19:49 Source: patient and asl interpreter Mode of arrival: ambulatory Limitations: language barrier History of Present Illness HPI Narrative: This is a 51-year-old male who is previously healthy who presents with left hand numbness for the last few weeks with no known injury or trauma. Patient tells me he is right-hand dominant. 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 He denies any associated weakness, pain in the hand. Numbness is worsened with working and at night time. Patient denies headache, slurred speech, dizziness, diff walking. Related Data Previous Rx's Medication Instructions Recorded ibuprofen 600 mg tablet 600 mg PO Q6H PRN pain #30 tabs 09/01/21 oxycodone-acetaminophen 5 mg-325 1 tab PO Q4-6H PRN pain #30 tabs 09/01/21 mg tablet (Percocet) naproxen 500 mg tablet 500 mg PO BID PRN pain #30 tabs 11/06/21 Allergies Allergy/AdvReac Type Severity Reaction Status Date / Time ENVIRONMENTAL Allergy Unknown RASH, Uncoded 05/21/20 18:45 HIVES, ITCHY Review of Systems Review of Systems: Yes all other systems are reviewed and are negative Constitutional: Constitutional: Reports no additional constitutional complaints, Denies body ache(s), Denies chills, Denies fever(s), Denies headache(s) and Denies weakness Eyes: Eyes: Reports no additional eye complaints and Denies change in vision ENT: Reports system reviewed and no additional complaints, except as documented, Denies dizziness, Denies headache(s), Denies nasal congestion, Denies nasal discharge and Denies neck pain Cardiovascular: Cardiovascular: Reports no additional cardiovascular complaints, Denies chest pain, Denies leg edema and Denies dyspnea Respiratory: Respiratory: Reports no additional respiratory complaints, Denies cough and Denies dyspnea Gastrointestinal: Gastrointestinal: Reports no additional gastrointestinal complaints, Denies abdominal pain, Denies diarrhea, Denies nausea and Denies vomiting Genitourinary: Genitourinary: Denies urinary incontinence Musculoskeletal: Musculoskeletal: Reports no additional musculoskeletal complaints, Denies back pain, Denies arthralgias, Denies joint swelling, Denies neck pain, Reports numbness and Denies tingling Integumentary/Breasts: Skin/Breast: Reports system reviewed and no additional complaints, except as docu and Denies rash Neurologic: Reports system reviewed and no additional complaints, except as documented, Denies Abnormal speech present, Denies dizziness, Denies headache(s), Reports numbness, Denies tingling and Denies weakness PMFSH Past Medical History Attestation statement: The following information was validated with the patient. Source: old records reviewed and nursing notes reviewed Medical History COVID-19 Social History Social History Household Members: Family Housing: House Do you presently have visiting nurse or other home services: No Alcohol intake: current Alcohol intake frequency: a few times a month Patient Tobacco Use Status: Former Tobacco user Tobacco use type: Cigarette Cigarette Packs Per Day: 0.2 Cigarettes Per Day: 4.0 Years Smoked: 7 Advance Directives: No Advance Directives Information Provided: No Advance Directives Date on File: 05/21/20 service: No Current occupational status: employed Physical Exam Vital Signs: Vital Signs: Last Vital Signs Temp 98.0 F 11/06/21 19:30 Pulse 69 11/06/21 19:30 Resp 18 11/06/21 19:30 BP 133/71 11/06/21 19:30 Pulse Ox 96 11/06/21 19:30 O2 Del Method 11/06/21 19:30 BMI result Body Mass Index 26.6 Const: General: cooperative, healthy appearing, comfortable and no acute distress Orientation/consciousness: patient oriented x3 Limitations: no limitations HEENT: Head: Yes normal to inspection Ears: hearing grossly normal bilaterally General nose exam: Normal external nose present Face and sinus: Yes normal facial exam Mouth: Normal oral and palatal mucosa present Throat: Yes posterior oropharynx normal Eyes: General: appearance normal, both eyes and all related structures Pupils: Equal, round and reactive pupils present Neck: Neck: Yes normal visual inspection Chest: Chest palpation & inspection: normal inspection of the chest Resp: Effort & Inspection: normal respiratory effort Auscultation: clear to auscultation bilaterally Cardio: Rate: regular rate Rhythm: regular rhythm Peripheral pulses: Peripheral pulses 2+ throughout GI: Inspection: Yes normal to inspection Palpation (GI): Soft to palpation and nontender Auscultation: normal bowel sounds Back/Spine/Pelvis: Thoracic/Lumbar Spine: thoracic and lumbar spine normal to inspection Skin: General skin exam: no rashes or lesions noted Neuro: General: patient oriented x3, no focal motor deficits and normal sensation to monofilament Cranial nerves: Yes CN's II-XII intact bilaterally, Yes Equal, round and reactive pupils present, Yes Bilaterally intact EOM present, Yes Nystagmus not present, Yes Normal facial strength present and Yes Midline tongue present Cognition (Neuro): normal cognition Speech: No Abnormal speech present Gait exam (Neuro): Normal gait present Motor exam (neuro): 5/5 motor strength present throughout Extrem: Other: Patient reports numbness and tingling over the left hand over the 1st and 2nd digit only. Full range of motion. 5/5 strength. + Tinel and Phalen sign. General: Yes normal to inspection MDM - Extremity (Nontraumatic) MDM Narrative Medical decision making narrative: 51 yo male here for several weeks of left hand numbness along the 1st and 2nd digits with no associated pain, weakness or trauma.. +tinel and phalen signs. 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 Pain is worsened with acitivity and nighttime. X-rays from triage show 1. No acute osseous injury. 2. No osteoarthritic change or evidence of erosive arthropathy. 3. Findings consistent with remote prior triquetral avulsion fracture -Patient denies previous injury or trauma Exam consistent with carpal tunnel syndrome. Patient placed in a wrist splint and started on an NSAID Medical Records Attestation: I reviewed the patient's medical records. Lab Data Attestation: I reviewed the patient's lab results. Imaging Data hand xr-ray: Attestation: I personally reviewed and interpreted this imaging study as follows: Radiologist's impression: 1. No acute osseous injury. 2. No osteoarthritic change or evidence of erosive arthropathy. 3. Findings consistent with remote prior triquetral avulsion fracture Discharge Plan Discharge Clinical Impression: Acute carpal tunnel syndrome of left wrist Patient Disposition: Home, Self-Care Instructions: Paresthesia (ED), Carpal Tunnel Surgery (DC) Additional Instructions: cambie el reloj a la mu?eca derecha. Utilice la f?enriqueta en todo momento, incluso por la noche. limitar el uso de la mano izquierda emily unos d?as. Realice un seguimiento con armendariz PCP en [facility] de s?ntomas continuos, ya que es posible que necesite slim a un especialista en [place]. Prescriptions: New naproxen 500 mg tablet 500 mg PO BID PRN (Reason: pain) Qty: 30 0RF No Action oxycodone-acetaminophen [Percocet] 5-325 mg tablet 1 tab PO Q4-6H PRN (Reason: pain) Qty: 30 0RF Rx Instructions: Partial Fill upon patient request. ibuprofen 600 mg tablet 600 mg PO Q6H PRN (Reason: pain) Qty: 30 0RF Referrals: Physician,Unknown J [Primary Care Provider] - Interventions: ED Discharge Assessment Last Done: 11/06/21 20:49 Discharge Date/Time: 11/06/21 20:50 Print Language: Lithuanian
== END 2021-11-06 20:50 | disposition home or self-care (01) ==
PROVIDERS: Emergency Provider Emergency Medicine
DX: G56.02 Carpal tunnel syndrome, left upper limb (principal); F17.210 Nicotine dependence, cigarettes, uncomplicated; M79.642 Pain in left hand; R20.2 Paresthesia of skin
CPT/HCPCS: 73120; 99282; 99283

== ENCOUNTER 2023-04-17 15:43 | Outpatient (REF) | payer MEDICAID, SELFPAY ==
[2023-04-17 18:00] LABS: Alanine Aminotransferase 46 U/L (0-40); Albumin Level 4.8 g/dL (3.5-5.0); Alkaline Phosphatase 63 U/L (39-117); Anion Gap 15 (12-20); Aspartate Amino Transferase 28 U/L (5-37); Bilirubin Total 0.5 mg/dL (0.0-1.0); Blood Urea Nitrogen 17 mg/dL (9-16); Calcium 9.9 mg/dL (8.4-10.2); Carbon Dioxide 25 mmol/L (22-29); Chloride 105 mmol/L (96-108); Cholesterol 200 mg/dL (<200); Estimated Glomerular Filt Rate > 60; Glucose Random 90 mg/dL (60-115); HDL Cholesterol 50 mg/dL (>40); LDL Cholesterol Calculated 128 mg/dL (<100); Potassium 4.5 mmol/L (3.3-5.1); Sodium 140 mmol/L (135-145); Total Protein 8.1 g/dL (6.5-8.0); Triglycerides 110 mg/dL (<150)
[2023-04-18 03:55] LABS: CT PCR NOT DETECTED (Not Detect.); NG PCR NOT DETECTED (Not Detect.)
[2023-04-18 04:10] LABS: ~HepC Num1 0.12 S/CO (0.00-0.79); ~Hepatitis C Antibody Nonreactive (Nonreactive)
[2023-04-18 11:53] LABS: RPR Rapid Plasma Reagin NON-REACTIVE (NON-REACTIVE)
[2023-04-20 17:02] LABS: HIV RNA PCR Qn Copies Not Detected Copies/mL; HIV RNA PCR Qn Log Copies Not Detected Log cps/mL
[2023-04-21 15:18] LABS: Testosterone, Total 480 ng/dL (250-1100)
== END 2023-04-17 15:44 | disposition home or self-care (01) ==
LOC: HO.HHCL 15:43
PROVIDERS: Visit Provider Nurse Practitioner Family
DX: Z00.00 Encounter for general adult medical examination without abnormal findings (principal); E78.00 Pure hypercholesterolemia, unspecified; E29.1 Testicular hypofunction; Z11.3 Encounter for screening for infections with a predominantly sexual mode of transmission
CPT/HCPCS: 0353U; 36415; 80053; 80061; 84403; 86592; 86803; 87536; 87900

== ENCOUNTER 2023-05-27 22:35 | Emergency (ER) | payer MEDICAID, SELFPAY ==
[2023-05-27 22:43] VITALS: BP 116/64; PULSE 88; RESP 16; TEMP 36.9; O2SAT 98; BMI 28.3
[2023-05-27 23:40] LABS: Influenza A PCR NEGATIVE (Negative); Influenza B PCR NEGATIVE (Negative); Resp Syncy Virus RNA Qual PCR NEGATIVE (Negative); SARS COV2 PCR INHOUSE POSITIVE (Negative)
--- NOTE | 2023-05-28 00:48 | ED_ITS ---
HPI - URI/Sore Throat General Chief Complaint: Headache Stated Complaint: headache Time Seen by Provider: 05/28/23 00:03 Source: patient Mode of arrival: ambulatory Limitations: no limitations History of Present Illness HPI Narrative: Patient is a 53-year-old male presents emergency department for evaluation of headache, body aches, sinus pressure, tactile fever with onset of symptoms this afternoon. Denies any known sick contacts. Related Data Previous Rx's Medication Instructions Recorded ibuprofen 600 mg tablet 600 mg PO Q6H PRN pain #30 tabs 09/01/21 oxycodone-acetaminophen 5 mg-325 1 tab PO Q4-6H PRN pain #30 tabs 09/01/21 mg tablet (Percocet) naproxen 500 mg tablet 500 mg PO BID PRN pain #30 tabs 11/06/21 Allergies Allergy/AdvReac Type Severity Reaction Status Date / Time ENVIRONMENTAL Allergy Unknown RASH, Uncoded 05/21/20 18:45 HIVES, ITCHY Review of Systems Review of Systems: Yes all other systems are reviewed and are negative PMFSH Past Medical History Attestation statement: The following information was validated with the patient. Source: old records reviewed Medical History COVID-19 Social History Social History Household Members: Family Housing: House Do you presently have visiting nurse or other home services: No Alcohol intake: current Alcohol intake frequency: a few times a month Patient Tobacco Use Status: Former Tobacco user Tobacco use type: Cigarette Cigarette Packs Per Day: 0.2 Cigarettes Per Day: 4.0 Years Smoked: 7 Advance Directives: No Advance Directives Information Provided: No Advance Directives Date on File: 05/21/20 service: No Current occupational status: employed Physical Exam Vital Signs: Vital Signs: Last Vital Signs Temp 98.4 F 05/27/23 22:43 Pulse 88 05/27/23 22:43 Resp 16 05/27/23 22:43 BP 116/64 05/27/23 22:43 Pulse Ox 98 05/27/23 22:43 O2 Del Method Room Air 05/27/23 22:43 BMI result Body Mass Index 28.3 Appearance: Alert.?Oriented to person, place and time. No acute distress.?Normal affect. Eyes: Pupils equal, round and reactive to light.? ENT: TM normal bilaterally. Pharynx normal.?? Neck: Normal inspection.? Neck supple.??No cervical adenopathy CVS: Heart sounds normal. Normal heart rate and rhythm.? Pulses normal.?? Respiratory: No respiratory distress.? Lung sounds clear to auscultation bilaterally?? Abdomen: Soft and non-tender. Normoactive bowel sounds. Skin: Skin warm and dry.? Normal skin color.? ? Extremities: No lower extremity edema.? Neuro: Moves all extremities spontaneously. Sensation intact bilaterally. No motor deficits. Ambulates with normal steady gait. Medical Decision Making Medical Decision Making [facility] Narrative: Patient is a 53-year-old male, presenting for evaluation of upper respiratory symptoms. COVID-19 testing is positive. Used shared decision-making, offered Paxlovid, discussed indications for use, potential side effects, patient declines. At this time history and physical exam not consistent with ACS/PE/pneumonia. Well-appearing, nontoxic, afebrile, no tachycardia or tachypnea/hypoxia. Speaking clear full sentences, ambulatory with steady gait. Discussed conservative treatment including rest, hydration, Tylenol/ibuprofen as needed for fever and body aches, saline nasal spray, humidifier, wayp-rof-krynnre cold medication. Advised to follow-up with primary care provider as needed, discussed reasons to return back to the emergency department. All questions were answered. Patient discharged home in stable condition. Differential Diagnosis Differential Diagnoses: The differential diagnosis associated with the presentation includes ( See narrative above) Admission/Observation Consideration of admission/observation: Escalation of care including admission/observation considered ( see narrative above) Lab Data [facility] Lab Attestation statement: I reviewed the patient's lab results. ( see narrative above) Labs: Lab Results 05/27/23 Range/Units 22:54 Influenza Type A (PCR) NEGATIVE (Negative) Influenza Type B (PCR) NEGATIVE (Negative) RSV RNA Qual (PCR) NEGATIVE (Negative) SARS-CoV-2 RNA (RT-PCR) POSITIVE A (Negative) External Record Review External record reviewed: Outpatient record Prescription Management I considered prescription management with: Pain Medication ( acetami nophen/ibuprofen) and Antiviral (See narrative above) Discharge Plan Discharge Clinical Impression: COVID-19 Patient Disposition: Home, Self-Care Instructions: COVID-19 (Coronavirus Disease 2019) (ED) Additional Instructions: Be sure to rest, stay well hydrated drinking plenty of fluids, eat small frequent meals. Tylenol/ibuprofen can be used as needed for fever/pain. Hbpq-tmf-[id number] cold medications may be helpful as well for symptoms. Saline nasal spray, humidifier may be helpful for nasal congestion. You may return to the emergency department with any new or worsening symptoms or concerns. Follow-up with your primary care provider as needed. Should remain out of school/ work until symptoms have resolved and have been without a fever for 24 hours without the use of Tylenol or ibuprofen. Prescriptions: No Action oxycodone-acetaminophen [Percocet] 5-325 mg tablet 1 tab PO Q4-6H PRN (Reason: pain) Qty: 30 0RF Rx Instructions: Partial Fill upon patient request. ibuprofen 600 mg tablet 600 mg PO Q6H PRN (Reason: pain) Qty: 30 0RF naproxen 500 mg tablet 500 mg PO BID PRN (Reason: pain) Qty: 30 0RF Referrals: Physician,Unknown J [Primary Care Provider] -
[2023-05-28] MEDS: Ibuprofen 600 MG TABLET PO (01:07)
[2023-05-28 01:11] VITALS: BP 116/64; PULSE 88; RESP 18; TEMP 36.9; O2SAT 98
== END 2023-05-28 01:11 | disposition home or self-care (01) ==
PROVIDERS: Emergency Provider Student in an Organized Health Care Education/Training Program
DX: U07.1 COVID-19 (principal)
CPT/HCPCS: 0241U; 99283

== ENCOUNTER 2023-10-04 12:18 | Outpatient (REF) | payer MEDICAID, SELFPAY ==
[2023-10-04 13:33] LABS: Alanine Aminotransferase 47 U/L (0-40); Albumin Level 4.7 g/dL (3.5-5.0); Alkaline Phosphatase 64 U/L (39-117); Aspartate Amino Transferase 27 U/L (5-37); Bilirubin Direct 0.1 mg/dL (0.0-0.5); Bilirubin Total 0.4 mg/dL (0.0-1.0); Total Protein 7.6 g/dL (6.5-8.0)
== END 2023-10-04 12:19 | disposition home or self-care (01) ==
LOC: HO.HHCL 12:18
PROVIDERS: Visit Provider Nurse Practitioner Family
DX: E78.00 Pure hypercholesterolemia, unspecified (principal)
CPT/HCPCS: 36415; 80076

== ENCOUNTER 2023-11-05 09:40 | Outpatient (REF) | payer MEDICAID, SELFPAY ==
--- NOTE | 2023-11-05 09:45 | EMG_ITS ---
Bilateral median and ulnar motor and sensory studies were performed. Bilateral radial and median and lateral antecubital brachial sensory studies were performed and paraspinal muscles were tested with a needle. IMPRESSION: 1. Ufat-pi-ywrteshl bilateral median neuropathy across carpal tunnel. 2. Mild bilateral ulnar neuropathy across cubital tunnel. MD JESSIE Perez/ALESSANDRA / [phone]
== END 2023-11-05 09:41 | disposition home or self-care (01) ==
LOC: HO.NEURO 09:40
PROVIDERS: PCP Nurse Practitioner Family; Visit Provider Nurse Practitioner Family
DX: R20.0 Anesthesia of skin (principal); R20.2 Paresthesia of skin
CPT/HCPCS: 95886; 95913

== ENCOUNTER 2024-05-15 17:51 | Emergency (ER) | payer MEDICAID, SELFPAY ==
--- NOTE | ~2024-05-15 | XR_ITS ---
CLINICAL HISTORY: midline tenderness, no trauma 3 views lumbar spine Comparison: None Findings: Normal alignment. No acute fractures or dislocation. No significant degenerative change. IMPRESSION: No acute findings. This document has been electronically signed by: Maisha Scott MD on 05/15/2024 19:15:28
[2024-05-15 18:04] VITALS: BP 126/73; PULSE 64; RESP 16; TEMP 36.4; O2SAT 97; BMI 27.1
--- NOTE | 2024-05-15 18:04 | ED.GENADULT ---
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 Denies fall or other trauma. Radiates to both upper legs at times, worse at night. Denies saddle anesthesia or bowel/bladder incontinence. Denies fevers. Denies weakness, numbness, tingling to lower extremities. MD complaint: low back pain Onset (ago): day(s) Location: back Radiation: extremity Severity: severe Quality: aching Pain Consistency: colicky Related Data Previous Rx's ?Medication ?Instructions ?Recorded ibuprofen 600 mg tablet 600 mg PO Q6H PRN pain #30 tabs 09/01/21 oxycodone-acetaminophen 5 mg-325 1 tab PO Q4-6H PRN pain #30 tabs 09/01/21 mg tablet (Percocet) naproxen 500 mg tablet 500 mg PO BID PRN pain #30 tabs 11/06/21 cyclobenzaprine 10 mg tablet 10 mg PO TID PRN muscle spasm #10 05/15/24 tabs lidocaine 5 % topical patch 1 patch topical DAILY #15 ea 05/15/24 Allergies Allergy/AdvReac Type Severity Reaction Status Date / Time ENVIRONMENTAL Allergy Unknown RASH, Uncoded 05/15/24 18:09 HIVES, ITCHY Review of Systems Review of Systems: As per HPI Yes all other systems are reviewed and are negative Constitutional: Constitutional: Reports as per HPI [facility] Past Medical History Medical History COVID-19 Social History Social History Household Members: Family Housing: House Do you presently have visiting nurse or other home services: No Alcohol intake: current Alcohol intake frequency: a few times a month Patient Tobacco Use Status: Former Tobacco user Tobacco use type: Cigarette Cigarette Packs Per Day: 0.2 Cigarettes Per Day: 4.0 Years Smoked: 7 Advance Directives Date on File: 05/21/20 service: No Current occupational status: employed Physical Exam ED Vital Signs: Vital Signs - 24 hr 05/15/24 18:04 Temperature 97.5 F Pulse Rate 64 Respiratory Rate 16 Blood Pressure 126/73 Pulse Oximetry 97 Oxygen Delivery Method Room Air BMI result Body Mass Index 27.1 Vital signs have been reviewed and appear to be correct. Blood pressure normal. Heart rate normal. Respiratory rate normal. Temperature normal. Oxygen saturation normal. Const General: cooperative, healthy appearing and no acute distress Orientation/consciousness: oriented to person, oriented to place, oriented to time and patient oriented x3 Limitations: no limitations HENMT Head: Yes normocephalic and Yes atraumatic Ears: external ears normal General nose exam: Normal external nose present Face and sinus: Yes face symmetric Mouth: oropharynx normal and moist mucous membranes Throat: Yes uvula midline Eyes Pupils: Equal, round and reactive pupils present Neck Neck: Yes normal visual inspection and Yes supple Resp Effort & Inspection: normal respiratory effort and able to speak in complete sentences Auscultation: clear to auscultation bilaterally Cardio Rate: regular rate Rhythm: regular rhythm Heart sounds: S1 normal heart sound present and S2 normal heart sound present GI Palpation (GI): Soft to palpation and nontender Auscultation: normoactive bowel sounds General: Yes no CVA tenderness Back/Spine/Pelvis Back: no CVA tenderness Thoracic/Lumbar Spine: thoracic and lumbar spine normal to inspection, thoraco-lumbar ROM normal, straight leg raise negative bilaterally, pain with thoraco-lumbar ROM, paraspinal muscle tenderness bilaterally in the upper lumbar and in the mid lumbar, No thoracic spinal tenderness and No lumbar spinal tenderness Skin General skin exam: elasticity normal and turgor normal Neuro General: oriented to person, oriented to place, oriented to time, patient oriented x3, gait normal, tone normal, moves all extremities, Normal light touch and pain sensation, no focal motor deficits, CN's II-XI intact bilaterally and deep tendon reflexes 2+ bilaterally Cranial nerves: Yes Equal, round and reactive pupils present Cognition (Neuro): normal cognition Motor exam (neuro): 5/5 motor strength present throughout, Normal motor muscle tone present throughout and Motor abnormalities not present Extrem General: Yes full ROM, Yes no pedal edema and Yes no calf tenderness Psych Mental Status: mental status grossly normal Affect: normal affect Thought process: Normal thought process present Course Course Course Narrative: This is a rapid medical exam performed by Radha Avila NP: Additional HPI, ROS, PE not included below will be deferred to primary provider. Patient is a 54-year-old [place] Islander speaking male presenting with complaint of lower back pain for the past 5 days after doing yard work. Denies fall or other trauma. Radiates to both upper legs at times, worse at night. Denies saddle anesthesia or bowel/bladder incontinence. Plan: xray Medical Decision Making Medical Decision Making [facility] Narrative: Patient is a 54-year-old [place] Islander speaking male presenting with complaint of lower back pain for the past 5 days after doing yard work. On exam patient is awake, A+Ox3, VS WNL, afebrile, normal neurological exam without focal deficits, physical exam findings as above. Given reported symptoms and physical exam findings, initial differential includes but is not limited to initial differential includes lumbar strain, lumbar radiculopathy, degenerative disc disease, disc herniation, spinal stenosis, spondylosis. Less likely vertebral fracture. Do not suspect malignancy/mass, SEA, cauda equina/cord compression. X-ray lumbar spine notable for no fracture or listhesis. My interpretation is in agreement with the radiologist's interpretation. Results discussed with patient and all questions answered. Will treat with flexeril, lidocaine patches, advised patient to alternate Tylenol and ibuprofen. Follow up with PCP as needed. Return precautions discussed. Patient verbalized understanding of and agreement with plan. 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 Differential Diagnosis Differential Diagnoses: The differential diagnosis associated with the presentation includes As per [facility] Independent Interpretation I performed an independent interpretation of an: Plain X-Ray Interpretation: No acute fracture or listhesis lumbar spine. Radiology Impression Discussion of test interpretation with radiology: I have reviewed the radiologist's reading. Radiologist Impression: 3 views lumbar spine Comparison: None Findings: Normal alignment. No acute fractures or dislocation. No significant degenerative change. IMPRESSION: No acute findings. External Record Review External record reviewed: Inpatient record, Office record and Outpatient record Prescription Management I considered prescription management with: Pain Medication and Other Discharge Plan Discharge Clinical Impression: Lumbar strain Patient Disposition: Home, Self-Care Instructions: Low Back Strain (ED) Additional Instructions: You were evaluated in the emergency department today for back pain. Your evaluation did not show signs of medical conditions requiring emergent intervention at this time. We recommended that you use ibuprofen or Tylenol per package directions every 6 hours as needed for pain. If necessary, you can alternate these medications so that you take one medication every 3 hours. For instance, at noon take ibuprofen, then at 3:00 p.m. take Tylenol, then at 6:00 p.m. take ibuprofen. You have been prescribed a muscle relaxer called Flexeril (cyclobenzaprine) which you may take every 8 hours as needed for spasms. Do not drive, drink alcohol, or operate heavy machinery while taking this as it can cause drowsiness. You have been prescribed 5% topical lidocaine patches which you can wear for up to 12 hours in a 24 hour period. Do not apply heat directly over the patches. Please schedule an appointment for follow-up with your primary care physician this week for further evaluation of your symptoms. Return to the emergency department if you experience worsening back pain, difficulty walking, fevers, numbness, tingling, incontinence, groin numbness or tingling, or any other concerning symptoms. Prescriptions: New cyclobenzaprine 10 mg tablet 10 mg PO TID PRN (Reason: muscle spasm) Qty: 10 0RF lidocaine 5 % adhesive patch,medicated 1 patch topical DAILY Qty: 15 0RF Rx Instructions: leave on most painful area for up to 12 hrs No Action oxycodone-acetaminophen [Percocet] 5-325 mg tablet 1 tab PO Q4-6H PRN (Reason: pain) Qty: 30 0RF Rx Instructions: Partial Fill upon patient request. ibuprofen 600 mg tablet 600 mg PO Q6H PRN (Reason: pain) Qty: 30 0RF naproxen 500 mg tablet 500 mg PO BID PRN (Reason: pain) Qty: 30 0RF Print Language: [place] Islander
[2024-05-15 19:36] VITALS: BP 126/73; PULSE 64; RESP 16; TEMP 36.4; O2SAT 97
--- OUTSIDE RECORDS SUMMARY | 2024-05-15 19:36 | XMS_ITS | Clinical Summary ---
Author Organization [employer] Address [address] [facility] [address] [place] [address] Care Team Providers Care Triage Specialist Name Role Phone Yenifer Bond NP Primary Care Provider [phone] Allergies No known active allergies Medications hydroCHLOROthia zide (HYDRODiuril) 25 MG tablet Take 1 tablet by mouth at bed time. 2 Active fluticasone (Flonase) 50 MCG/ACT nasal spray Administer 2 sprays into each nostril in the morning. Shake gently. Before first use, prime pump. After use, clean tip and replace cap. 16 g 2 4 Active cetirizine (ZyrTEC) 10 MG tablet Take 1 tablet (10 mg) by mouth in the morning. 90 tablet 3 4 Active hydrOXYzine pamoate (Vistaril) 25 MG capsule Take 1 capsule (25 mg) by mouth every 6 (six) hours if needed for itching for up to 10 days. 30 capsule 4 Active Active Problems Problem Noted Date Diagnosed Date Allergic rhinitis 06/30/2015 Encounters Date Type Department Care Team Description 05/15/2024 Population Health Risk Score [facility] Department [address] [place] [id number] Provider, Population Health Generic from Last 3 Months Immunizations Name Administration Dates Next Due Hep B, adult 11/03/2003,05/06/2003,04/08/2003 Influenza injectable quadriv alent preservative free 12/10/2019 Influenza, IIV3, injectable 11/09/2009 TD (adult), 2 Lf tetanus tox oid, preservative free, adsorbed 11/03/2003 Td (adult), 5 Lf tetanus tox oid, preservative free, adsorbed 11/18/2011 Tdap 04/13/2014 Family History Medical History Relation Name Comments Hypertension Father Stomach cancer Maternal Grandfather Heart attack Mother Hypertension Mother Cancer Sister Relation Name Status Comments Father Maternal Grandfather Mother Sister Social History Tobacco Use Types Packs/Day Years Used Date Smoking Tobacco: Former Cigarettes Smokeless Tobacco: Never Tobacco Cessation:Counseling Given: Not Answered Comments:Quit 10 years ago Alcohol Use Standard Drinks/Week Comments Not Currently 0 (1 standard drink = 0.6 oz pure alcohol) occassional drinks, wine / beer Housing Stability Answer Date Recorded What is your housing situation today? I have ranjeet higuera 03/11/[address] you li ve. Do you have problems with any of the following? None of the above 03/11/2023 Food Insecurity Answer Date Recorded Within the past 12 months, y ou worried that your food would run out before you got money to buy more: Never True 03/11/2023 Within the past 12 months,th e food you bought just didn't last and you didn't have enough money to get more: Never True 10/2023 Transportation Answer Date Recorded In the past 12 months, has l ack of transportation kept you from medical appts, meetings, work or from getting things needed for daily living? No;Yes, it has kept me from non-medical meetings, work, or getting things that I need 04/17/2023 Utilities Answer Date Recorded In the past 12 months, has t he electric, gas, oil or water company threatened to shut off services in your home? No 03/11/2023 Sex and Gender Information Value Date Recorded Sex Assigned at Male 01/01/2022 10:16 AM EDT Legal Sex Male 10:16 AM EDT Gender Identity Male 01/01/2022 10:16 AM EDT Sexual Orientation Straight 01/01/2022 10 :16 AM EDT Last Filed Vital Signs Vital Sign Reading Time Taken Comments Blood Pressure 114/70 10/04/2023 11:19 AM EDT Pulse 61 10/04/2023 11:19 AM EDT Temperature - - Respiratory Rate 14 10/04/2023 11:1 9 AM EDT Oxygen Saturation 98% 10/04/2023 11: 19 AM EDT Inhaled Oxygen Concentration - - Weight 89.7 kg (197 lb 12.8 oz) 024 11:19 AM EDT Height 180.3 cm (5' 11 ) 04/17/2023 2:58 PM EST Body Mass Index 27.59 04/17/2023 2:58 PM EST Plan of Treatment Health Maintenance Due Date Last Done Comments CT Colonography 1972 Colonoscopy 1972 Colorectal Cancer Screening 1972 Depression Screening 1972 FIT DNA/Cologuard 1972 FIT 1972 FOBT 1972 Sigmoidoscopy 1972 Alcohol/Substance Use Screening 1984 Family Planning (PISQ) 1987 Pneumococcal Vaccine: 50+ Years (1 of 1 - PCV) 2022 Zoster Vaccines (1 of 2) 2022 COVID-19 Vaccine (4 - 2023-2 5 season) 2023 02/24/2021, 07/05/2020, 06/06/2020 Influenza Vaccine (#1) 2023 , 11/09/2009 DTaP/Tdap/Td Vaccines (2 - T d or Tdap) 04/13/2024 04/13/2014, 11/18/2011, 11/03/2003 SDOH Screening 04/17/2024 04/17/2023 Tobacco Screening 10/03/2024 10/04/2023 Lipid Panel 04/17/2028 04/17/2023, 05/17/2021 RSV Patients and Patients Aged 60 years or older (1 - 1-dose 75+ series) 2047 Hepatitis B Vaccines Completed 11/03/2003, 05/06/2003, 04/08/2003 HIV Screening Completed 05/17/2021 Hepatitis C Screening Completed 04/17/2023 HIB Vaccines Aged Out No longer eligi ble based on patient's age to complete this topic HPV Vaccines Aged Out No longer eligi ble based on patient's age to complete this topic Hepatitis A Vaccines Aged Out No long er eligible based on patient's age to complete this topic IPV Vaccines Aged Out No longer eligi ble based on patient's age to complete this topic Meningococcal Vaccine Aged Out No kaelyn mariah eligible based on patient's age to complete this topic RSV under 20 months Aged Out No longe r eligible based on patient's age to complete this topic Rotavirus Vaccines Aged Out No longer eligible based on patient's age to complete this topic Procedures Procedure Name Priority Date/Time Associated Diagnosis Comments HEPATITIS C AB W/REFL TO HCV RNA, QN, PCR Routine 04/17/2023 3:48 PM EST Routine adult health maintenance LIPID PANEL, STANDARD Routine 04/17/2023 3:48 PM EST Elevated cholesterol HIV 1/2 ANTIGEN/ANTIBODY, FOURTH GENERATION W/RFL Routine 05/17/2021 12:00 AM EDT from Last 3 Months or Most Recently Relevant to Health Maintenance Results * Hepatitis C Antibody with Reflex to HCV, RNA, Quantitative, Real-Time PCR (04/17/2023 3:48 PM EST) Hepatitis C Antibody Nonreactive Nonreactive [facility] Comment:Antibodies to HCV no t detected; does not exclude early acuteHCV infection. Blood Venous blood specimen / Unknown 04/17/2023 3:48 PM EST 04/17/2023 5:32 PM EST us Meryl Cano [employer] LAB BLOOD ORDERABLES Final Resu lt [facility] [address] [place] [phone] * (ABNORMAL) Lipid Panel, Standard (04/17/2023 3:48 PM EST) Triglycerides 110 <150 mg/dL [facility] Comment:Desirable Triglyceri de: less than 150 mg/dLBorderline High Triglyceride 150-199 mg/dLHigh Triglyceride: 200-499 mg/dLVery High Triglyceride: greater than or equal to 5OO mg/dL Cholesterol 200(H) <200 mg/dL [facility] Comment:Desirable Cholestero l: less than 200 mg/dLBorderline High Cholesterol: 200-239 mg/dLHigh Cholesterol: greater than 239 mg/dL LDL Cholesterol Calculated 128(H) <100 mg/dL [facility] Comment:Desirable LDL: less than 100 mg/dLNear Optimal/Above Optimal LDL: 110- 129 mg/dLBorderline High LDL: 130-159 mg/dLHigh LDL: 160-189 mg/dLVery High LDL: greater than or equal to 190 mg/dL HDL Cholesterol 50 >40 mg/dL [facility] Comment:Desirable HDL: great er than 40 mg/dL Note: This HDL assay may give artificially low results in patients with liver disease. Blood Venous blood specimen / Unknown 04/17/2023 3:48 PM EST 04/17/2023 5:32 PM EST Meryl Cano [employer] LAB BLOOD ORDERABLES Final Resu lt [facility] [address] [place] [phone] * HIV 1/2 ANTIGEN/ANTIBODY,FOURTH GENERATION W/RFL (05/17/2021 12:00 AM EDT) HIV-1/2 ANTIGEN AND ANTIBODIES, 4TH GENERATION W/ REFLEX [facility] Comment: HIV-1 antigen and HIV-1/HIV-2 antibodies were not detected. There is no laboratory evidence of HIV infection. ?? PLEASE NOTE: This information has been disclosed to you from records whose confidentiality may be protected by state law. ??If your state requires such protection, then the state law prohibits you from making any further disclosure of the information without the specific written consent of the person to whom it pertains, or as otherwise permitted by law. A general authorization for the release of medical or other information is NOT sufficient for this purpose. ? For additional information please refer to http://education.BuyWithMe/faq/MNO232 (This link is being provided for informational/ educational purposes only.) ? The performance of this assay has not been clinically validated in patients less than 2 years old. ?? 05/17/2021 Jaylene Felipe MD LAB BLOOD ORDERABLES Final R esult [facility] [address] from Last 3 Months or Most Recently Relevant to Health Maintenance Insurance [employer]3 Care Teams Triage Specialist Relationship Specialty Start Date End Date Yenifer Bond NP [address] [place] [id number] PCP - General Family Medicine 11/06/23
--- OUTSIDE RECORDS SUMMARY | 2024-05-15 19:36 | XMS_ITS | Encounter Summary ---
Author Organization [email or web address] Address [address] [facility] 7t [place] [address] Care Team Providers Care Budget Director Name Role Phone Yenifer Bond NP Primary Care Provider [phone] Encounter Details Date Type Department Care Team ([facility] Contact Info) Description 05/15/2024 Population Health [facility] [address] [place] [id number] Provider, Population Health Generic Social History Tobacco Use Types Packs/Day Years Used Date Smoking Tobacco: Former Cigarettes Smokeless Tobacco: Never Comments:Quit 10 years ago Alcohol Use Standard Drinks/Week Comments Not Currently 0 (1 standard drink = 0.6 oz pure alcohol) occassional drinks, wine / beer Housing Stability Answer Date Recorded What is your housing situation today? I have ranjeetpauline higuera 03/11/[address] you [...] the past 12 months, has t he [employer], [employer], oil or water company threatened to shut off services in your home? No 03/11/2023 Sex and Gender Information Value Date Recorded Sex Assigned at Male 01/01/2022 10:16 AM EDT Legal Sex Male 10:16 AM EDT Gender Identity Male 01/01/2022 10:16 AM EDT Sexual Orientation Straight 01/01/2022 10 :16 AM EDT documented as of this encounter Plan of Treatment Not on file documented as of this encounter Visit Diagnoses Not on filedocumented in this encounter Care Teams Budget Director Relationship Specialty Start Date End Date Yenifer Bond NP [address] [place] [address] PCP - General Family Medicine 11/06/23 documented as of this encounter
== END 2024-05-15 19:36 | disposition home or self-care (01) ==
LOC: HO.ED 19:34
PROVIDERS: Emergency Provider Emergency Medicine; PCP Nurse Practitioner Family
DX: M54.50 Low back pain, unspecified (principal); M79.605 Pain in left leg; M79.604 Pain in right leg; Z87.891 Personal history of nicotine dependence
CPT/HCPCS: 72100; 99282; 99283

== ENCOUNTER → 2024-05-15 18:09 | Outpatient (BNV) | payer MEDICAID, SELFPAY | PROVIDERS: Emergency Provider Emergency Medicine; PCP Nurse Practitioner Family; Visit Provider Radiology Diagnostic Radiology | DX: M54.50 Low back pain, unspecified (principal) | CPT/HCPCS: 72100 ==

== ENCOUNTER 2024-09-05 20:57 | Emergency (ER) | payer MEDICAID, SELFPAY ==
--- NOTE | ~2024-09-05 | US_ITS ---
CLINICAL HISTORY: pain day after weight lifting Venous duplex ultrasound right upper extremity Comparison: None provided Findings: Accessible deep venous segments are fully compressible with normal Doppler color flow and spectral tracings. IMPRESSION: 1. Negative for right upper extremity deep vein thrombosis. This document has been electronically signed by: Mikey Berry MD on 09/06/2024 02:47:35
--- NOTE | ~2024-09-05 | XR_ITS ---
CLINICAL HISTORY: Rt upper arm pain 3 view right humerus Comparison: None provided Findings: No fractures or dislocations. No significant arthritic change. No radiopaque foreign body. IMPRESSION: 1. Normal right humerus This document has been electronically signed by: Mikey Berry MD on 09/06/2024 01:52:25
[2024-09-05 20:58] VITALS: BP 135/71; PULSE 70; RESP 16; TEMP 36.7; O2SAT 97; BMI 27.7
--- NOTE | 2024-09-05 22:44 | ED_ITS ---
HPI - Extremity Problem General Chief complaint: Extremity Injury, Upper Stated complaint: right upper arm pain Time Seen by Provider: 09/05/24 22:44 History of Present Illness ED Provider: Juliocesar MOONEY Narrative: The patient is a 54-year-old male. On he was at the gym and did a lot of weightlifting. He had no while he was exercising. The next morning however he woke up with a lot of pain in his right upper arm. He indicates that he feels the pain in the dorsal aspect of the right upper arm. He also has pain at the elbow if he tries to extend the arm. No numbness or tingling in the hand. He can move his fingers well. no chest pain or shortness of breath. No fever, sweats, chills. The patient says that he is on no medications. 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 The patient says that he has no significant past medical history. However review of his chart indicates that he had a significant case of COVID related pneumonia in May of 2020 which was associated with some small pulmonary emboli and for which he completed a course of apixaban. He has had no recurrence of any thromboembolic phenomenon. He is not currently on anticoagulant medication or any other medications. Related Data Previous Rx's ?Medication ?Instructions ?Recorded ibuprofen 600 mg tablet 600 mg PO Q6H PRN pain #30 t abs 09/01/21 oxycodone-acetaminophen 5 mg-325 1 tab PO Q4-6H PRN pa in #30 tabs 09/01/21 mg tablet (Percocet) naproxen 500 mg tablet 500 mg PO BID PRN pain #30 t abs 11/06/21 cyclobenzaprine 10 mg tablet 10 mg PO TID PRN muscle s pasm #10 05/15/24 tabs lidocaine 5 % topical patch 1 patch topical DAILY #15 ea 05/15/24 acetaminophen 500 mg capsule 1,000 mg (2 x 500 mg) PO Q8H PRN 09/06/24 fever or pain #14 caps ibuprofen 400 mg tablet 400 mg PO Q6H PRN pain #14 t abs 09/06/24 Allergies Allergy/AdvReac Type Severity Reaction Status Date / Time ENVIRONMENTAL Allergy Unknown RASH, Uncoded 09/05/24 21:00 HIVES, ITCHY Review of Systems 2 Review of Systems: Yes all other systems are reviewed and are negative [facility] Past Medical History Medical History COVID-19 Social History Social History Household Members: Family Housing: House Do you presently have visiting nurse or other home services: No Alcohol intake: current Alcohol intake frequency: a few times a month Patient Tobacco Use Status: Former Tobacco user Tobacco use type: Cigarette Cigarette Packs Per Day: 0.2 Cigarettes Per Day: 4.0 Years Smoked: 7 Advance Directives Date on File: 05/21/20 service: No Current occupational status: employed Physical Exam 2 Vital Signs: Vital Signs: Last Vital Signs Temp 97.7 F 09/06/24 04:27 Pulse 60 09/06/24 04:27 Resp 16 09/06/24 04:27 BP 132/77 09/06/24 04:27 Pulse Ox 95 09/06/24 04:27 O2 Del Method Room Air 09/06/24 04:27 BMI result Body Mass Index 27.7 Const: Other: The patient is a 54-year-old man who was awake and alert. He looks possibly mildly uncomfortable but not severely so.. He looks robust and muscular. HEENT: Other: The face is symmetrical. Mucous membranes moist. Eyes: General: appearance normal, both eyes and all related structures Neck: Neck: Yes normal visual inspection and Yes full ROM Resp: Effort & Inspection: normal respiratory effort Auscultation: clear to auscultation bilaterally Cardio: Rate: regular rate Rhythm: regular rhythm Heart sounds: S1 normal heart sound present and S2 normal heart sound present Skin: Other: There was no abnormality to the skin of the right arm. The skin of the right arm is normal in color and appearance. No soft tissue swelling or edema. Neuro: Other: The patient is awake and alert with a normal mental status. He has normal strength and sensation in the right hand. Extrem: Other: The patient has generalized tenderness to the right upper arm. I do not appreciate any discontinuity of the tendons of the biceps. He has maximal tenderness at the proximal antecubital fossa rather than in the biceps itself. He also has some triceps tenderness. None of this tenderness is exquisite. He is able to flex the elbow reasonably well. I can pronate and supinate the forearm without apparent discomfort. However he finds full extension of the elbow extremely uncomfortable, indicating pain at the proximal antecubital fossa. He can not fully extend the elbow because of pain. I believe that compartments of the upper arm are soft. The forearm seems entirely benign. Medications Administered Discontinued Medications Generic Name Dose Route Start Last Admin Trade Name Yun PRN Reason Stop Dose Admin Acetaminophen 975 mg 09/06/24 01:55 09/06/24 02:43 Acetaminophen 325 Mg Tablet PO 09/06/24 01:56 975 mg ONCE ONE Administration Sodium Chloride 1,000 mls @ 999 mls/hr 09/06/24 02:00 09/06/24 04:19 Ns IV 09/06/24 03:00 Infused .Q1H1M [place] Infusion Ketorolac Tromethamine 30 mg 09/05/24 23:25 09/05/24 23:48 Ketorolac Tromethamine 30 Mg/Ml Vial IM 09/05/24 23:26 30 mg ONCE ONE Administration Medical Decision Making Medical Decision Making [facility] Narrative: The patient is a 54-year-old male who presents for evaluation of pain that has been present for slightly less than 48 hours. He has been at the gym on evening and did a lot of weight lifting. He had no sense of injury or pain at the time that he was exercising. The next morning, yesterday morning on Saturday, he woke up with pain in the right upper arm and with difficulty extending his elbow. he presents today, on Saturday evening, for evaluation of this pain. Clinically the patient does not seem to have severe pain or pain out of proportion to his presentation. I had some sense that this might be a biceps tendon injury initially but I would have expected him to have abrupt onset of pain while exercising. This pain began the next morning. He has a history of pulmonary emboli. This was at the time that he had COVID in 2020. He had fairly significant COVID pneumonia. He completed a course of anticoagulation than has had no recurrent venous thromboembolism disease. A DVT ultrasound of the right arm was done which is negative. An x-ray of the right upper arm is negative. Labs were done that showed a CPK of 8199. he was given some IV fluids and the CPK was repeated. It came down to 6964. clinically the patient seems maximally tender at what is probably the insertion site of the distal biceps tendon. I do not really feel he is that tender in the belly of the muscle of the biceps or the triceps. clinically I think this is unlikely to represent a compartment syndrome. he simply does not seem to have the compartment tenseness or the degree of discomfort I would expect from a compartment syndrome. I think he probably has some degree of a tendinitis associated with some mild rhabdomyolysis. He felt considerably better after an injection of ketorolac. He will be discharged with instructions to use ibuprofen and acetaminophen. He will be given a sling. He should follow up with the orthopedic office. 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 Lab Data 09/06/24 00:20 09/06/24 00:20 Labs: Lab Results 09/06/24 09/06/24 Range/Units 00:20 03:21 WBC 4.8 (4.8-10.8) X10*3/uL RBC 4.95 (4.60-5.80) X10*6/uL Hgb 14.5 (14.0-18.0) g/dl Hct 40.7 L (42.0-52.0) % MCV 82.2 (80.0-98.0) fL MCH 29.3 (27.0-33.0) pg MCHC 35.6 (31.0-36.0) g/dl RDW 12.8 (11.0-16.0) % Plt Count 208 (160-400) X10*3/uL MPV 9.1 L (9.4-12.4) fL Immature Gran % (Auto) 0.2 (0.0-0.4) % Neut % (Auto) 49.3 (45-73) % Lymph % (Auto) 38.2 (20-40) % [place] % (Auto) 10.0 (2-11) % Eos % (Auto) 1.7 (0-4) % Baso % (Auto) 0.6 (0-2) % Lymph # (Auto) 1.8 (1.2-4.9) X10*3/uL [place] # (Auto) 0.5 (0.1-1.2) X10*3/uL Eos # (Auto) 0.1 (0.0-0.4) X10*3/uL Baso # (Auto) 0.0 (0.0-0.2) X10*3/uL Abs Immat Gran (auto) 0.01 (0.00-0.03) X10*3/uL Absolute Neuts (auto) 2.4 (2.0-8.3) x10*3/uL Absolute Nucleated RBC 0.000 (0.0-0.012) X10*3/uL Nucleated RBC % (auto) 0.0 (0.0-0.2) /100WBC Sodium 141 (135-145) mmol/L Potassium 4.0 (3.3-5.1) mmol/L Chloride 106 (96-108) mmol/L Carbon Dioxide 23 (22-29) mmol/L Anion Gap 16 (12-20) BUN 26 H (9-16) mg/dL Creatinine 1.09 (0.5-1.4) mg/dL Estim Creat Clear Calc 84.4 Estimated GFR > 60 Random Glucose 93 (60-115) mg/dL Calcium 9.3 D (8.4-10.2) mg/dL Total Creatine Kinase 8199 H 6964 H (38-174) U/L Discharge Plan Discharge Clinical Impression: Strain of right biceps tendon Patient Disposition: Home, Self-Care Additional Instructions: Please wear the sling to rest your right arm. You may use the prescribed ibuprofen and acetaminophen as needed for pain. Please contact the orthopedic office on Saturday. My hope is that they can see you this week for additional advice and recommendations. Additionally you may follow up with your regular doctor as well. If you feel significantly worse please return to the emergency department. Prescriptions: New ibuprofen 400 mg tablet 400 mg PO Q6H PRN (Reason: pain) Qty: 14 0RF acetaminophen 500 mg capsule 1,000 mg PO Q8H PRN (Reason: fever or pain) Qty: 14 0RF No Action oxycodone-acetaminophen [Percocet] 5-325 mg tablet 1 tab PO Q4-6H PRN (Reason: pain) Qty: 30 0RF Rx Instructions: Partial Fill upon patient request. ibuprofen 600 mg tablet 600 mg PO Q6H PRN (Reason: pain) Qty: 30 0RF naproxen 500 mg tablet 500 mg PO BID PRN (Reason: pain) Qty: 30 0RF cyclobenzaprine 10 mg tablet 10 mg PO TID PRN (Reason: muscle spasm) Qty: 10 0RF lidocaine 5 % adhesive patch,medicated 1 patch topical DAILY Qty: 15 0RF Rx Instructions: leave on most painful area for up to 12 hrs Referrals: [facility] [Provider Group] [facility] [Provider Group] Stand Alone Forms: Work/School Release Interventions: ED Discharge Assessment Last Done: 09/06/24 04:27 Discharge Date/Time: 09/06/24 04:28 Print Language: Telugu
[2024-09-05 23:18] VITALS: BP 126/72; PULSE 69; RESP 16; O2SAT 96
--- NOTE | 2024-09-05 23:21 | PC.NURSE ---
This expert medical writer assumed care of this Pt at 2300.
[2024-09-06 00:24] LABS: MANUAL DIFF FLAG NO
[2024-09-06 00:27] LABS: Hematocrit 40.7 % (42.0-52.0); Hemoglobin 14.5 g/dl (14.0-18.0); Imm Gran Abs Auto 0.01 X10*3/uL (0.00-0.03); Imm Gran Pct Auto 0.2 % (0.0-0.4); Lymphocytes Absolute Auto 1.8 X10*3/uL (1.2-4.9); Mean Corpuscular HGB Conc 35.6 g/dl (31.0-36.0); Mean Corpuscular Hemoglobin 29.3 pg (27.0-33.0); Mean Corpuscular Volume 82.2 fL (80.0-98.0); NRBC Abs Auto 0.000 X10*3/uL (0.0-0.012); NRBC Pct Auto 0.0 /100WBC (0.0-0.2); Platelet Count 208 X10*3/uL (160-400); Red Blood Count 4.95 X10*6/uL (4.60-5.80); White Blood Count 4.8 X10*3/uL (4.8-10.8)
[2024-09-06 00:45] LABS: Anion Gap 16 (12-20); Blood Urea Nitrogen 26 mg/dL (9-16); Calcium 9.3 mg/dL (8.4-10.2); Carbon Dioxide 23 mmol/L (22-29); Chloride 106 mmol/L (96-108); Creatinine Clr Calc Pharmacy 84.4; Estimated Glomerular Filt Rate > 60; Potassium 4.0 mmol/L (3.3-5.1); Sodium 141 mmol/L (135-145)
[2024-09-06 02:41] VITALS: BP 140/76; PULSE 66; RESP 18; TEMP 36.6; O2SAT 96
[2024-09-06 04:20] VITALS: BP 132/77; PULSE 60; RESP 16; TEMP 36.5; O2SAT 95
[2024-09-06 04:27] VITALS: BP 132/77; PULSE 60; RESP 16; TEMP 36.5; O2SAT 95
== END 2024-09-06 04:28 | disposition home or self-care (01) ==
PROVIDERS: Emergency Provider Emergency Medicine
DX: S46.211A Strain of muscle, fascia and tendon of other parts of biceps, right arm, initial encounter (principal); X58.XXXA Exposure to other specified factors, initial encounter; Y93.79 Activity, other specified sports and athletics; Y92.39 Other specified sports and athletic area as the place of occurrence of the external cause; Y99.9 Unspecified external cause status
CPT/HCPCS: 36415; 73060; 80048; 82550; 85025; 93971; 96360; 96361; 96372; 99284; J1885

== ENCOUNTER → 2024-09-06 00:01 | Outpatient (BNV) | payer MEDICAID, SELFPAY | PROVIDERS: Emergency Provider Emergency Medicine; Visit Provider Radiology Diagnostic Radiology | DX: M79.621 Pain in right upper arm (principal) | CPT/HCPCS: 73060; 93971 ==

== ENCOUNTER 2024-09-09 14:10 | Outpatient (AMB) | payer MEDICAID, SELFPAY ==
--- NOTE | 2024-09-09 14:12 | MHC.OFFVIS ---
Intake Visit Reasons: FC-Strain of RT biceps tendon Intake Note: Mt is a 54 year old male who presents today for a fracture care Strain of RT biceps tendon. Patient was referred by [facility] on 09/06. Patient states no injections or physical therapy. Patient reports that no numbness or tingling. He states that at his doctor visit they discussed that he has B/L carpal tunnel. He added that at his ER visit they have him ibuprofen, muscle relaxer, mild relief. Provider Service Representative Required: Yes Provider Service Representative Services: Provider Service Representative Offered & Declined Provider Service Representative Name: VANDANA Noble/HORACE Allergies ENVIRONMENTAL Allergy (Unknown, Uncoded 09/05/24 21:00) RASH, HIVES, ITCHY Medication List - Last Reconciled 09/09/24 by Jona Arenas PA-C acetaminophen 1,000 mg (2 x 500 mg) PO Q8H PRN cyclobenzaprine 10 mg PO TID PRN ibuprofen 600 mg PO Q6H PRN ibuprofen 400 mg PO Q6H PRN lidocaine 5% 1 patch topical DAILY naproxen 500 mg PO BID PRN oxycodone-acetaminophen 5-325 mg (Percocet) 1 tab PO Q4-6H PRN HPI HPI FC-Strain of RT biceps tendon: Details: 54-year-old gentleman presents to the office today for pain in the right biceps region. He states on 09/06 he was working out when he may have overdone it and cause pain in the muscle belly of the biceps tendon. He denies a pop or any type of sharp pain or deformity. He was seen in the emergency department where imaging was done which was negative for any abnormalities and he was referred to our office for a follow up. [facility], [facility] Medical History COVID-19 Social History Household Members: Family Housing: House Do you presently have visiting nurse or other home services: No Alcohol intake: current Alcohol intake frequency: a few times a month Patient Tobacco Use Status: Former Tobacco user Tobacco use type: Cigarette Cigarette Packs Per Day: 0.2 Cigarettes Per Day: 4.0 Years Smoked: 7 Advance Directives Date on File: 05/21/20 service: No Current occupational status: employed Review of Systems Const All systems reviewed & are unremarkable except as noted in HPI and below Physical Exam Const General: cooperative and no acute distress Orientation/consciousness: patient oriented x3 Resp Effort & Inspection: normal respiratory effort and able to speak in complete sentences Cardio Peripheral pulses: Peripheral pulses 2+ throughout Neuro General: patient oriented x3 Extrem Other: Right bicep is normal to inspection no deformity or palpable defect. Negative hook test. Can supinate and pronate flex and extend without difficulty. Neurovascularly intact. Assessment & Plan Assessment & Plan (1) Strain of right biceps: Code(s): S46.211A - Strain of muscle, fascia and tendon of other parts of biceps, right arm, initial encounter Category: Medical Plan: No evidence of biceps tendon rupture. The patient is improving since his injury and has no concerns at this time. The patient can increase activities as tolerated and if there is any concerns he will contact our office otherwise follow up as needed. Coding Level of Care Code New Pt Level 3 (74881) Complex EM visit Add On G2211 Diagnoses Strain of right biceps S46.211A
--- OUTSIDE RECORDS SUMMARY | 2024-09-09 14:48 | XMS_ITS | Clinical Summary ---
Author Organization [facility] Address [address] [place] [address] Care Team Providers Care Project Financial Analyst Name Role Phone Unavailable Primary Care Provider Unavailabl e Source Comments PLEASE NOTE, if this patient is a minor, it may be UNLAWFUL to discuss sensitive information that is contained in these records (such as FAMILY PLANNING, MENTAL HEALTH or SUBSTANCE ABUSE) with the minor patient's parent or other person without the patient's specific authorization.[facility] Immunizations Immunization Administration Dates Next Due Moderna COVID-19 Vaccine, re d cap blue label, 12+ Primary Series 07/05/2020,06/06/2020 Social History Tobacco Use Types Packs/Day Years Used Date Smoking Tobacco: Never Assessed Social Connections Answer Date Recorded Social Connections and Isolation 0 06/06/2020 Financial Resource Strain Answer Date R ecorded Financial Resource Strain 0 2020 Stress Answer Date Recorded Stress 0 06/06/2020 Physical Activity Answer Date Recorded Physical Activity 0 06/06/2020 Food Insecurity Answer Date Recorded Food 0 06/06/2020 Transportation Needs Answer Date Record ed Transportation 0 06/06/2020 Housing Stability Answer Date Recorded Housing 0 06/06/2020 Safety and Environment Answer Date Carlos rded Safety 0 06/06/2020 Utilities Answer Date Recorded Utilities 0 06/06/2020 Employment Answer Date Recorded Employment 0 06/06/2020 Sex and Gender Information Value Date Recorded Sex Assigned at Not on file Legal Sex Male 1:15 PM PDT Gender Identity Not on file Sexual Orientation Not on file Plan of Treatment Health Maintenance Due Date Last Done Comments Anxiety Screening 1972 Diabetes Screening 1972 Hepatitis C Screening 1972 Lipid Screening 1972 Tobacco Screening 1972 HIV Screening 1987 Hypertension Screening (#1) 1990 Imm-Hepatitis B (1 of 3 - 19 + 3-dose series) 1991 CT Colonography 2017 Colonoscopy 2017 Colorectal Cancer Screening 2017 FIT/gFOBT 2017 Fecal DNA 2017 Flexible Sigmoidoscopy 2017 Imm-Pneumococcal 50+ (1 of 1 - PCV) 2022 Imm-Zoster, Recombinant (1 of 2) 2022 [id number] (3 - season) 2023 021, 06/06/2020 Alcohol and Drug Screen 03/04/2024 Depression Annual Screen 03/04/2024 Imm-DTaP/Tdap/Td (2 - Td or Tdap) 04/13/2024 04/13/2014, 11/18/2011, 11/03/2003 Imm-Influenza (Season Ended) 2024 12/10/2019, 11/09/[address] [employer]
--- OUTSIDE RECORDS SUMMARY | 2024-09-09 14:48 | XMS_ITS | Clinical Summary ---
Author Organization [facility] [employer] Address [address] [place] [address] [address] [place] [address] Care Team Providers Care Air And Missile Defense Crewmember Name Role Phone Yenifer Bond NP Primary Care Provider [phone] Allergies No known active allergies Medications hydroCHLOROthia [...] Noted Date Diagnosed Date Allergic rhinitis 06/30/2015 Immunizations Immunization Administration Dates Next Due Hep B, adult [...] 1972 FIT 1972 FOBT 1972 Sigmoidoscopy 1972 Disability Screening 1972 Alcohol/Substance Use Screening 1984 Family Planning (PISQ) 1987 Pneumococcal Vaccine: 50+ Years (1 of 1 - PCV) 2022 Zoster Vaccines (1 of 2) 2022 COVID-19 Vaccine (4 - 2023-2 5 season) 2023 02/24/2021, 07/05/2020, 06/06/2020 DTaP/Tdap/Td Vaccines (2 - T d or Tdap) 04/13/2024 04/13/2014, 11/18/2011, 11/03/2003 SDOH Screening 04/17/2024 04/17/2023 Tobacco Screening 10/03/2024 10/04/2023 Influenza Vaccine (#1) 2024 , 11/09/2009 Lipid Panel 04/17/2028 04/17/2023, 05/17/2021 RSV Patients [...] patient's age to complete this topic Meningococcal B Vaccine Aged Out No l onger eligible based on patient's age to complete [...] PM EST) Hepatitis C Antibody Nonreactive Nonreactive [facility] Comment:Antibodies to HCV no t detected; does not exclude early acuteHCV infection. Blood Venous blood specimen / Unknown 04/17/2023 3:48 PM EST 04/17/2023 5:32 PM EST Meryl Cano POWER SAW OPERATOR LAB BLOOD ORDERABLES Final Resu lt [facility] [address] [place] [address] [phone] * (ABNORMAL) Lipid Panel, Standard (04/17/2023 3:48 PM EST) Triglycerides 110 <150 mg/dL [facility] Comment:Desirable Triglyceri de: less than 150 mg/dLBorderline High Triglyceride 150-199 mg/dLHigh Triglyceride: 200-499 mg/dLVery High Triglyceride: greater than or equal to 5OO mg/dL Cholesterol 200(H) <200 mg/dL [facility] Comment:Desirable Cholestero l: less than 200 mg/dLBorderline High Cholesterol: 200-239 mg/dLHigh Cholesterol: greater than 239 mg/dL LDL Cholesterol Calculated 128(H) <100 mg/dL [facility] Comment:Desirable LDL: less than 100 mg/dLNear Optimal/Above Optimal LDL: 110- 129 mg/dLBorderline High LDL: 130-159 mg/dLHigh LDL: 160-189 mg/dLVery High LDL: greater than or equal to 190 mg/dL HDL Cholesterol 50 >40 mg/dL [facility] Comment:Desirable HDL: great er than 40 mg/dL Note: This HDL assay may give artificially low results in patients with liver disease. Blood Venous blood specimen / Unknown 04/17/2023 3:48 PM EST 04/17/2023 5:32 PM EST Meryl Cano POWER SAW OPERATOR LAB BLOOD ORDERABLES Final Resu lt [facility] [address] [place] [phone] * HIV 1/2 ANTIGEN/ANTIBODY,FOURTH GENERATION W/RFL (05/17/2021 12:00 AM EDT) HIV-1/2 ANTIGEN AND ANTIBODIES, 4TH GENERATION W/ REFLEX NON-REACT BAILEY NON-REACT BAILEY [facility] Comment: HIV-1 antigen and HIV-1/HIV-2 antibodies were not detected. There is no laboratory evidence of HIV infection. PLEASE NOTE: This information has been disclosed to you from records whose confidentiality may be protected by state law. If your state requires such protection, then the state law prohibits you from making any further disclosure of the information without the specific written consent of the person to whom it pertains, or as otherwise permitted by law. A general authorization for the release of medical or other information is NOT sufficient for this purpose. For additional information please refer to http://education.Weight Wins.com/faq/DSJ918 (This link is being provided for informational/ educational purposes only.) The performance of this assay has not been clinically validated in patients less than 2 years old. 05/17/2021 us Jaylene Felipe MD LAB BLOOD ORDERABLES Final R esult [facility] [address] from Last 3 Months or Most Recently Relevant to Health Maintenance Insurance [facility] C3 Care Teams Air And Missile Defense Crewmember Relationship Specialty Start Date End Date Yenifer Bond NP [address] [place] [address] PCP - General Family Medicine 11/06/23
== END 2024-09-09 14:29 | disposition home or self-care (01) ==
LOC: HO.HOS 14:10
PROVIDERS: Visit Provider Physician Assistant
DX: S46.211A Strain of muscle, fascia and tendon of other parts of biceps, right arm, initial encounter (principal)
CPT/HCPCS: 99203

== ENCOUNTER → 2024-09-09 14:10 | Outpatient (BNVA) | payer MEDICAID, SELFPAY | PROVIDERS: Visit Provider Physician Assistant | DX: M75.21 Bicipital tendinitis, right shoulder (principal); S46.211A Strain of muscle, fascia and tendon of other parts of biceps, right arm, initial encounter | CPT/HCPCS: 99212 ==

== ENCOUNTER 2025-01-31 22:24 | Emergency (ER) | payer MEDICAID, SELFPAY ==
[2025-01-31 22:41] VITALS: BP 136/66; PULSE 64; RESP 16; TEMP 36.6; O2SAT 97; BMI 28.3
[2025-01-31 23:34] LABS: MANUAL DIFF FLAG NO
[2025-01-31 23:35] LABS: Hematocrit 45.7 % (42.0-52.0); Hemoglobin 15.9 g/dl (14.0-18.0); Imm Gran Abs Auto 0.01 X10*3/uL (0.00-0.03); Imm Gran Pct Auto 0.2 % (0.0-0.4); Lymphocytes Absolute Auto 2.0 X10*3/uL (1.2-4.9); Mean Corpuscular HGB Conc 34.8 g/dl (31.0-36.0); Mean Corpuscular Hemoglobin 28.6 pg (27.0-33.0); Mean Corpuscular Volume 82.3 fL (80.0-98.0); NRBC Abs Auto 0.000 X10*3/uL (0.0-0.012); NRBC Pct Auto 0.0 /100WBC (0.0-0.2); Platelet Count 224 X10*3/uL (160-400); Red Blood Count 5.55 X10*6/uL (4.60-5.80); White Blood Count 4.9 X10*3/uL (4.8-10.8)
[2025-01-31 23:36] LABS: Appearance Urine Clear; Glucose Urine UA 100 mg/dL (Negative); PH 6.0 (5.0-9.0); Specific Gravity - Urine 1.025 (1.005-1.025)
[2025-01-31 23:47] LABS: Anion Gap 17 (12-20); Blood Urea Nitrogen 16 mg/dL (9-16); Calcium 9.7 mg/dL (8.4-10.2); Carbon Dioxide 21 mmol/L (22-29); Chloride 106 mmol/L (96-108); Creatinine Clr Calc Pharmacy 110.1; Estimated Glomerular Filt Rate > 60; Potassium 4.0 mmol/L (3.3-5.1); Sodium 140 mmol/L (135-145)
--- OUTSIDE RECORDS SUMMARY | 2025-02-01 01:46 | XMS_ITS | Clinical Summary ---
Author Organization [employer] Address [address] [place] [address] [address] [place] [address] Care Team Providers Care Transportation Maintenance Supervisor Name Role Phone Yenifer Bond NP Primary Care Provider [phone] Allergies No known active allergies Medications hydroCHLOROthia [...] Encounters Date Type Department Care Team Description 12/17/2024 Telephone [facility] [address] [place], [place] [phone] Yenifer Bond NP DEC RECALL from Last 3 Months Immunizations Immunization Administration Dates Next Due Hep [...] 04/17/2023 2:58 PM EST Plan of Treatment Upcoming Encounters Date Type Department Care Team (Late st Contact Info) Description 02/16/2025 11:00 AM EST Office Visit [facility] [address] [place] [address] Yenifer Bond NP [address] [place] [address] Health Maintenance Due Date Last Done Comments CT Colonography 1972 Colonoscopy 1972 Colorectal Cancer Screening 1972 Depression Screening 1972 FIT DNA/Cologuard 1972 FIT 1972 FOBT 1972 Sigmoidoscopy 1972 Disability Screening 1972 Alcohol/Substance Use Screening 1984 Family Planning (PISQ) 1987 Pneumococcal Vaccine: 50+ Years (1 of 1 - PCV) 2022 Zoster Vaccines (1 of 2) 2022 DTaP/Tdap/Td Vaccines (2 - T d or Tdap) 04/13/2024 04/13/2014, 11/18/2011, 11/03/2003 SDOH Screening 04/17/2024 04/17/2023 Tobacco Screening 10/03/2024 10/04/2023 COVID-19 Vaccine (4 - 2024-2 6 season) 2024 02/24/2021, 07/05/2020, 06/06/2020 Influenza Vaccine (#1) 2024 , 11/09/2009 Lipid [...] PM EST) Hepatitis C Antibody Nonreactive Nonreactive [facility] Comment:Antibodies to HCV no t detected; does not exclude early acuteHCV infection. Blood Venous blood specimen / Unknown 04/17/2023 3:48 PM EST 04/17/2023 5:32 PM EST us Meryl Cano [facility] LAB BLOOD ORDERABLES Final Resu lt [facility] [address] [place] [phone] * (ABNORMAL) Lipid Panel, Standard (04/17/2023 3:48 PM EST) Triglycerides 110 <150 mg/dL [facility] Comment:Desirable Triglyceri de: less than 150 mg/dLBorderline High Triglyceride 150-199 mg/dLHigh Triglyceride: 200-499 mg/dLVery High Triglyceride: greater than or equal to 5OO mg/dL Cholesterol 200(H) <200 mg/dL [facility] Comment:Desirable Cholestero l: less than 200 mg/dLBorderline High Cholesterol: 200-239 mg/dLHigh Cholesterol: greater than 239 mg/dL LDL Cholesterol Calculated 128(H) <100 mg/dL [facility] Comment:Desirable LDL: less than 100 mg/dLNear Optimal/Above Optimal LDL: 110- 129 mg/dLBorderline High LDL: 130-159 mg/dLHigh LDL: 160-189 mg/dLVery High LDL: greater than or equal to 190 mg/dL HDL Cholesterol 50 >40 mg/dL [facility] Comment:Desirable HDL: great er than 40 mg/dL Note: This HDL assay may give artificially low results in patients with liver disease. Blood Venous blood specimen / Unknown 04/17/2023 3:48 PM EST 04/17/2023 5:32 PM EST Meryl Cano SENIOR QA AUTOMATION ENGINEER LAB BLOOD ORDERABLES Final Resu lt [facility] [address] [place] [phone] * HIV 1/2 ANTIGEN/ANTIBODY,FOURTH GENERATION W/RFL (05/17/2021 12:00 AM EDT) HIV-1/2 ANTIGEN AND ANTIBODIES, 4TH GENERATION W/ REFLEX NON-REACT BAILEY NON-REACT BAILEY [facility] Comment: HIV-1 antigen and HIV-1/HIV-2 [...] purpose. For additional information please refer to http://education.Lagoon/faq/SFH067 (This link is being provided for informational/ educational purposes only.) The performance of this assay has not been clinically validated in patients less than 2 years old. 05/17/2021 us Jaylene Felipe MD LAB BLOOD ORDERABLES Final R esult [facility] [address] from Last 3 Months or Most Recently Relevant to Health Maintenance Insurance [facility] Member Subscriber Plan / Payer (Ef fective 2022-Present) Name:Mt [place] Relation to Subscriber:Self Name:Mt Laughlin Payer ID:Not on file Group ID:Not on file Type:Medicaid Address: [address] [id number] Care Teams Transportation Maintenance Supervisor Relationship Specialty Start Date End Date Yenifer Bond NP [address] [place] [id number] PCP - General Family Medicine 11/06/23
--- OUTSIDE RECORDS SUMMARY | 2025-02-01 01:46 | XMS_ITS | Patient Health Record ---
Author Organization [facility] Address [facility] [address] Care Team Providers Care It Program Manager Name Role Phone ZORA AQUINO Primary Care Provider MARGO OG Unavailable Allergies No Known Allergies Reason For Referral No Information Medications Medication SIG (Take, Route, Frequency, Duration) Notes Start Date End Date Status Flonase Active Social History Social History COVID-19 Social Info Question Answer Notes [place] COVID-19 Fecha 05/04/2023 Presenta algun sintoma: [place] Se cavazos realizado recientement e la prueba rapida o molecular para el COVID 19 No Conoce a alguien que haya sido positivo al COVID -19 No Cavazos participado de eventos pu blicos, sociales o familiares en los ultimos 14 barney Yes Cuando Cavazos viajado [place] de [place] o cavazos estado en contacto con alguien que haya estado [place] en los pasados 14 barney Yes [place] Cuando Se cavazos vacunado contra el COVID-19 3 dosis [place] Sexual History: Social Info Question Answer Notes Sexual History Had sex in the past 12 months (vaginal, oral, or anal)? Yes Drugs/Alcohol: Social Info Question Answer Notes Caffeine Intake: 1-2 cups per day Praneeth de Emergencia Social Info Question Answer Notes Historial Social Vivienda Con abril Additional Details Category Social Info Options Details Drugs/Alcohol: Do you smoke marijuana? De nies Do you drink alcohol? Socially Section Notes: PRECIOUS MCKEON RN BSN. Lic. [id number] 05/04/2023 11:31:14 PM > Plan Of Treatment No Information Medical (General) History Medical History History ICD Code Sinusitis
--- NOTE | 2025-02-01 02:20 | ED_ITS ---
HPI - Abdominal Pain General Chief Complaint: Abdominal Pain Stated Complaint: abdominal pain Time Seen by Provider: 02/01/25 02:08 Source: patient Mode of arrival: ambulatory Limitations: no limitations History of Present Illness ED Provider: Dr. Clairsa Rebollar HPI narrative: Patient comes to the emergency room complaining of intermittent right-sided flank pain. Patient states it has been happening for the last 5 days. Patient denies any injury, denies nausea or vomiting, denies any intense pain, denies any injury. Patient states that he just wanted to be checked out Related Data Previous Rx's ?Medication ?Instructions ?Recorded ibuprofen 600 mg tablet 600 mg PO Q6H PRN pain #30 t abs 09/01/21 oxycodone-acetaminophen 5 mg-325 1 tab PO Q4-6H PRN pa in #30 tabs 09/01/21 mg tablet (Percocet) naproxen 500 mg tablet 500 mg PO BID PRN pain #30 t abs 11/06/21 cyclobenzaprine 10 mg tablet 10 mg PO TID PRN muscle s pasm #10 05/15/24 tabs lidocaine 5 % topical patch 1 patch topical DAILY #15 ea 05/15/24 acetaminophen 500 mg capsule 1,000 mg (2 x 500 mg) PO Q8H PRN 09/06/24 fever or pain #14 caps ibuprofen 400 mg tablet 400 mg PO Q6H PRN pain #14 t abs 09/06/24 cyclobenzaprine 5 mg tablet 5 mg PO TID PRN muscle spa sm #10 02/01/25 tabs Allergies Allergy/AdvReac Type Severity Reaction Status Date / Time ENVIRONMENTAL Allergy Unknown RASH, Uncoded 01/31/25 22:46 HIVES, ITCHY Review of Systems Review of Systems Constitutional : No Weight loss, No Fever, No Chills, No Night Sweats, No Fatigue, No Malaise ENT/Mouth : No Hearing loss, No Ear Pain, No Nasal Congestion, No Sinus Pain, No Hoarseness, No sore throat, No Rhinorrhea, No Swallowing Difficulty Eyes: No Eye Pain, No Swelling, No Redness, No Foreign Body, No Discharge, No Vision Changes Cardiovascular : No Chest Pain, No SOB, No Dyspnea on Exertion, No Orthopnea, No Edema, No Palpitations Respiratory : No Cough, No Sputum, No Wheezing, No Smoke Exposure, No Dyspnea Gastrointestinal : No Nausea, No Vomiting, No Diarrhea, No Constipation, No abdominal Pain, No Hematochezia, No Melena Genitourinary : no irregular bleeding, No Dysuria, No Urinary Frequency, No Hematuria, No Urinary Incontinence, No Urgency, complaining of right-sided Flank Pain, No Urinary Flow Changes, No Hesitancy Musculoskeletal : No joint pain, No Myalgias, No Joint Swelling Skin : No Skin Lesions, No rash Neuro : No Weakness, No Numbness, No Paresthesias, No Loss of Consciousness, No Dizziness, No Headache Psych : No Anxiety/Panic, No Depression, No SI/HI/AH/VH, No Social Issues, Heme/Lymph: No Bruising, No Bleeding,No Lymphadenopathy Endocrine : No Polyuria, No Polydipsia, No Temperature Intolerance [facility] Past Medical History Medical History COVID-19 Social History Social History Household Members: Family Housing: House Do you presently have visiting nurse or other home services: No Alcohol intake: current Alcohol intake frequency: a few times a month Patient Tobacco Use Status: Former Tobacco user Tobacco use type: Cigarette Cigarette Packs Per Day: 0.2 Cigarettes Per Day: 4.0 Years Smoked: 7 Advance Directives: No Advance Directives Information Provided: No Advance Directives Date on File: 05/21/20 service: No Current occupational status: employed Physical Exam ED Exam Exam: Appearance: Alert. Oriented X3. No acute distress. Eyes: Pupils equal, round and reactive to light. ENT: Pharynx normal. Neck: Normal inspection. Neck supple. No lymph nodes noted. No crepitus CVS: Normal heart rate and rhythm. Pulses normal. Normal S1 and S2 Respiratory: No respiratory distress. Breath sounds normal. No Wheezing. No rales Abdomen: Soft and nontender. No rigidity. No distention. Negative CVA tenderness bilaterally Skin: Skin warm and dry. Normal skin color. Normal skin turgor. Extremities: No lower extremity edema. No Lacerations. No Rash Neuro: Oriented X 3. No motor deficit. No sensory deficit. Moving all extremities. No slurred speech. CN 2 through 12 grossly intact Psych: calm, cooperative, normal affect Vital Signs: Vital Signs - 24 hr 01/31/25 22:41 Temperature 97.8 F Pulse Rate 64 Respiratory Rate 16 Blood Pressure 136/66 Pulse Oximetry 97 Oxygen Delivery Method Room Air BMI result Body Mass Index 28.3 Medical Decision Making Medical Decision Making [facility] Narrative: My interpretation of labs: No significant abnormality in patient's hematology or chemistry, urinalysis negative for blood or UTI. On physical exam, patient did not have CVA tenderness. I discussed the physical exam with the patient, it is possible that he may be experiencing intermittent muscle spasms. Based on physical exam, urinalysis in labs, it is less likely the patient may be passing a kidney stone. At this time, patient is completely asymptomatic without any medication Differential Diagnosis Differential Diagnoses: The differential diagnosis associated with the presentation includes (As above) Lab Data [facility] Lab Attestation statement: I reviewed the patient's lab results. 01/31/25 23:27 01/31/25 23:27 Labs: Lab Results 01/31/25 Range/Units 23:27 WBC 4.9 (4.8-10.8) X10*3/uL RBC 5.55 (4.60-5.80) X10*6/uL Hgb 15.9 (14.0-18.0) g/dl Hct 45.7 (42.0-52.0) % MCV 82.3 (80.0-98.0) fL MCH 28.6 (27.0-33.0) pg MCHC 34.8 (31.0-36.0) g/dl RDW 12.3 (11.0-16.0) % Plt Count 224 (160-400) X10*3/uL MPV 9.4 (9.4-12.4) fL Immature Gran % (Auto) 0.2 (0.0-0.4) % Neut % (Auto) 46.3 (45-73) % Lymph % (Auto) 40.6 H (20-40) % Rabun % (Auto) 10.5 (2-11) % Eos % (Auto) 1.6 (0-4) % Baso % (Auto) 0.8 (0-2) % Lymph # (Auto) 2.0 (1.2-4.9) X10*3/uL Rabun # (Auto) 0.5 (0.1-1.2) X10*3/uL Eos # (Auto) 0.1 (0.0-0.4) X10*3/uL Baso # (Auto) 0.0 (0.0-0.2) X10*3/uL Abs Immat Gran (auto) 0.01 (0.00-0.03) X10*3/uL Absolute Neuts (auto) 2.2 (2.0-8.3) x10*3/uL Absolute Nucleated RBC 0.000 (0.0-0.012) X10*3/uL Nucleated RBC % (auto) 0.0 (0.0-0.2) /100WBC Sodium 140 (135-145) mmol/L Potassium 4.0 (3.3-5.1) mmol/L Chloride 106 (96-108) mmol/L Carbon Dioxide 21 L (22-29) mmol/L Anion Gap 17 (12-20) BUN 16 (9-16) mg/dL Creatinine 0.91 (0.5-1.4) mg/dL Estim Creat Clear Calc 110.1 Estimated GFR > 60 Random Glucose 119 H (60-115) mg/dL Calcium 9.7 (8.4-10.2) mg/dL Urine Color Yellow Urine Appearance Clear Urine pH 6.0 (5.0-9.0) Ur Specific [place] 1.025 (1.005-1.025) Urine Protein Negative (Neg-Trace) mg/dL Urine Glucose (UA) 100 H (Negative) mg/dL Urine Ketones Negative (Negative) mg/dL Urine Blood Negative (Negative) Urine Nitrite Negative (Negative) Ur Leukocyte Esterase Negative (Negative) Discharge Plan Discharge Clinical Impression: Muscle spasm Patient Disposition: Home, Self-Care Instructions: Muscle Spasm (ED) Additional Instructions: Please follow-up with your primary care physician tomorrow. If you have any worsening or new symptoms, please return to the emergency room or call 911 Prescriptions: New cyclobenzaprine 5 mg tablet 5 mg PO TID PRN (Reason: muscle spasm) Qty: 10 0RF No Action oxycodone-acetaminophen [Percocet] 5-325 mg tablet 1 tab PO Q4-6H PRN (Reason: pain) Qty: 30 0RF Rx Instructions: Partial Fill upon patient request. ibuprofen 600 mg tablet 600 mg PO Q6H PRN (Reason: pain) Qty: 30 0RF naproxen 500 mg tablet 500 mg PO BID PRN (Reason: pain) Qty: 30 0RF ibuprofen 400 mg tablet 400 mg PO Q6H PRN (Reason: pain) Qty: 14 0RF acetaminophen 500 mg capsule 1,000 mg PO Q8H PRN (Reason: fever or pain) Qty: 14 0RF cyclobenzaprine 10 mg tablet 10 mg PO TID PRN (Reason: muscle spasm) Qty: 10 0RF lidocaine 5 % adhesive patch,medicated 1 patch topical DAILY Qty: 15 0RF Rx Instructions: leave on most painful area for up to 12 hrs Print Language: Polish
[2025-02-01 02:37] VITALS: BP 136/66; PULSE 64; RESP 16; TEMP 36.6; O2SAT 97
[2025-02-01 02:44] VITALS: BP 136/66; PULSE 64; RESP 16; TEMP 36.6; O2SAT 97
== END 2025-02-01 02:46 | disposition home or self-care (01) ==
PROVIDERS: Emergency Provider Emergency Medicine
DX: M62.838 Other muscle spasm (principal)
CPT/HCPCS: 36415; 80048; 81003; 85025; 99282; 99283